=== PATIENT | female | born 1975 | race Caucasian/White ===

== ENCOUNTER 2017-06-07 18:45 | Emergency (ER) | payer OTHER ==
[~2017-06-07] VITALS: Ht 172.7 cm; Wt 112.5 kg
[~2017-06-07 18:45] MED LIST: ALBUTEROL0.09 MG/A1 INH; AMITRIPTYLINE H10 MG PO; BENTYL20 M1 PO; FLEXERIL10 MG PO; LIALDA1.2 G1 PO; LIALDA1.2 GM PO; MACROBID100 MG PO; MEDROL DOSEPAK1 PAC PO; NASONEX0.05 MG/Ac NAS; PERCOCET 325 MG1 TA2 PO; PERCOCET 5-3251 EACH PO; ROBITUSSIN W/CO10 ML PO; ROWASA4 GM/60 ML RC; TESSALON PERLE100 MG PO; VENLAFAXINE HYD75 M1 PO; VICODIN5-300 PO; ZOFRAN4 M1 PO
[2017-06-07 18:50] VITALS: BP 114/78
--- NOTE | 2017-06-07 20:18 | ED GI/GU/ABDOMINAL COMPLAINT ---
See Addendum History of Present Illness General Chief Complaint: Female Urogenital Problems Stated Complaint: PT HAS A BOIL ON HER INNER THIGH NEED TO BE DRAIN Source: patient Exam Limitations: no limitations Vital Signs & Intake/Output Vital Signs & Intake/Output Vital Signs Date Time Temp Pulse Resp B/P B/P Pulse O2 O2 Flow FiO2 Mean Ox Delivery Rate 06/07 2213 98.4 96 18 95 Room Air 06/07 2023 Room Air 06/07 1850 99.3 118 18 114/78 96 Room Air ED Intake and Output 06/08 0000 06/07 1200 Intake Total Output Total Balance Patient 248 lb Weight Weight Reported by Patient Measurement Method Triage Note: PT HAS ABCESS TO LEFT GROIN THAT HAS BEEN WORSE SINCE MONDAY. PT WENT TO PCP TODAY AND WAS TOLD TO COME TO ED. Triage Nurses Notes Reviewed? yes ? N Is pt currently ? No HPI: 41 yo F presents to the ED for evaluation of a groin abscess. The patient report it started with a boil a few days and has been increasing in size and pain since then. Last night she was unable to sleep due to the pain. She went to her PCP who advised her to go to the ER. She was prescribed Percocet by her PCP for the pain but it not provide her any relief. She reports she has had abscess in the past a few years ago. (JOO BARRAGAN,[facility]) Allergies Coded Allergies: doxycycline (Mild, abdominal pain, VOMITING 06/07/17) Reconcile Medications Cephalexin (Keflex) 500 MG CAPSULE 1 CAP PO 4 TIMES/DAY ABSCESS Clonazepam 1 MG TABLET 1 TAB PO PRN ANXIETY (Reported) Dextroamphetamine/Amphetamine (Adderall XR 20 MG Capsule) 20 MG CAP.ER.24H 1 CAP PO QAM ADD (Reported) Divalproex Sodium (Divalproex Sodium ER) 250 MG TAB.ER.24H 1 TAB PO QPM MENTAL HEALTH (Reported) Escitalopram Oxalate 20 MG TABLET 1 TAB PO QAM MENTAL HEALTH (Reported) Ibuprofen 800 MG TABLET 1 TAB PO TID pain Lamotrigine 25 MG TABLET 1 TAB PO QPM MENTAL HEALTH (Reported) Oxycodone HCl/Acetaminophen (Oxycodone-Acetaminophen 10-325) 10 MG-325 MG TABLET 1 TAB PO Q6H PRN PAIN (Reported) Oxycodone HCl/Acetaminophen (Percocet 5-325 MG Tablet) 5 MG-325 MG TABLET 1 TAB PO 4XDP PRN PAIN TEN...[id number] Sulfamethoxazole/Trimethoprim (Sulfamethoxazole-Tmp Ds Tablet) 800 MG-160 MG TABLET 1 TAB PO BID ANTIBIOTIC (Reported) Sulfamethoxazole/Trimethoprim (Bactrim Ds Tablet) 800 MG-160 MG TABLET 1 TAB PO BID ABSCESS (MERT BARRAGAN,RODOLFO Lane) Past History Travel History Traveled to [place] past 21 day No Medical History Any Pertinent Medical History? see below for history Neurological: NONE EENT: NONE Cardiovascular: hyperlipidemia Respiratory: bronchitis, obstructive sleep apnea Gastrointestinal: ulcerative colitis Hepatic: NONE Renal: NONE Musculoskeletal: falls Psychiatric: anxiety, bipolar disease Endocrine: NONE Blood Disorders: NONE Cancer(s): NONE NURSE EMERGENCY/Reproductive: NONE Surgical History Surgical History: cholecystectomy, hysterectomy, TONILLECTOMY ADENOID SX CYST REMOVAL FROM OVARIES Psychosocial History Who do you live with Spouse Services at Home NONE What is your primary language [place] Tobacco Use: Never used ETOH Use: denies use Illicit Drug Use: denies illicit drug use Family History Hx Contributory? No (SEVEN GE MD) Review of Systems Review of Systems Constitutional: Reports: no symptoms. (SEVEN GE MD) Physical Exam Physical Exam General Appearance: well developed/nourished, mild distress (SEVEN GE MD) Physical Exam Head: atraumatic Eyes: Bilateral: normal appearance. Ears, Nose, Throat, Mouth: hearing grossly normal, dental injury, moist mucous membrane Neck: normal inspection, supple Respiratory: normal breath sounds, chest non-tender, no respiratory distress, quiet respiration, lungs clear Cardiovascular: regular rate/rhythm Gastrointestinal: normal bowel sounds, soft, non-tender, no organomegaly Back: normal inspection, normal range of motion Extremities: normal range of motion Neurologic/Psych: no motor/sensory deficits, awake, alert, oriented x 3 Skin: intact, normal color, warm/dry Core Measures ACS in differential dx? No Severe Sepsis Present: No Septic Shock Present: No (RODOLFO PAINTING MD) Progress Differential Diagnosis: abscess vs cellulitis vs other. Plan of Care: absces drained... see below. pt given keflex/bactrim Initial ED EKG: none (RODOLFO PAINTING MD) Departure Departure Condition: Stable Referrals: ZAHEER BARRAGAN,TOY Mejia (PCP/Family) Departure Forms: Customer Survey General Discharge Information (JOO BARRAGAN,SEVEN) Departure Disposition: HOME OR SELF CARE Clinical Impression Primary Impression: Abscess Prescriptions: Current Visit Scripts Sulfamethoxazole/Trimethoprim (Bactrim Ds Tablet) 1 TAB PO BID #20 TAB Cephalexin (Keflex) 1 CAP PO 4 TIMES/DAY #40 CAP Ibuprofen 1 TAB PO TID #30 TAB Ref 1 Oxycodone HCl/Acetaminophen (Percocet 5-325 MG Tablet) 1 TAB PO 4XDP PRN PAIN #10 TAB TEN...[id number] Comments pt to follow up in 1-2 days for dressing change (MERT BARRAGAN,RODOLFO Lane) Procedures Incision and Drainage Site: left labia majora Blade Size: 11 I & D Procedure: Yes: betadine prep, sterile drapes applied, sterile dressing applied, wick placed. Progress: excellent result, small amount of pus and blood drained.... (MERT BARRAGAN,RODOLFO Lane)
[2017-06-07] MEDS ORDERED: ADDERALL XR 2020 MG PO (20:57)
[2017-06-07] MEDS ORDERED: OXYCODONE-ACET1 EAC1 PO (20:58)
[2017-06-07] MEDS ORDERED: SULFAMETHOXAZO1 EAC1 PO (20:58)
[2017-06-07] MEDS ORDERED: LAMOTRIGINE25 M3 PO (20:59)
[2017-06-07] MEDS ORDERED: DIVALPROEX SOD250 M3 PO (20:59)
[2017-06-07] MEDS ORDERED: CLONAZEPAM1 M2 PO (20:59)
[2017-06-07] MEDS ORDERED: ESCITALOPRAM OX20 MG PO (21:00)
[2017-06-07] MEDS ORDERED: BACTRIM DS TAB1 EACH PO (21:10)
[2017-06-07] MEDS ORDERED: KEFLEX500 M1 PO (21:10)
[2017-06-07] MEDS ORDERED: PERCOCET 5-3251 EACH PO (21:42)
[2017-06-07] MEDS ORDERED: IBUPROFEN800 M1 PO (21:42)
== END 2017-06-07 22:15 ==
LOC: ERH 18:45
DX: N76.4 Abscess of vulva (principal)

== ENCOUNTER 2017-06-09 19:55 | Inpatient (IN) | payer OTHER ==
[~2017-06-09] VITALS: Ht 172.7 cm; Wt 110.2 kg
[~2017-06-09 19:55] MED LIST changes: +ADDERALL XR 2020 MG PO; +BACTRIM DS TAB1 EACH PO; +CLONAZEPAM1 M2 PO; +DIVALPROEX SOD250 M3 PO; +ESCITALOPRAM OX20 MG PO; +IBUPROFEN800 M1 PO; +KEFLEX500 M1 PO; +LAMOTRIGINE25 M3 PO; +OXYCODONE-ACET1 EAC1 PO; +SULFAMETHOXAZO1 EAC1 PO
--- NOTE | 2017-06-09 20:10 | NUR ---
PT TO TRIAGE FOR WOUND CHECK TO LEFT THIGH, IND DONE YESTERDAY HERE IN ER. VSS.
--- NOTE | 2017-06-09 20:21 | NUR ---
PT IN RM C/O PAIN AND WOUND DRAINAGE TO LFT LABIA MAJORA RATING 8/10 ON PAIN SCALE. BREE SINCLAIR AT BEDSIDE
--- NOTE | 2017-06-09 20:26 | ED ANIMAL BITE/WOUND CHECK ---
History of Present Illness General Chief Complaint: Female Urogenital Problems Stated Complaint: FOLLOW UP A DRAINING OF A BOIL Source: patient, old records Exam Limitations: no limitations Vital Signs & Intake/Output Vital Signs & Intake/Output Vital Signs Date Time Temp Pulse Resp B/P B/P Pulse O2 O2 Flow FiO2 Mean Ox Delivery Rate 06/10 0305 98.9 72 13 124/76 92 Room Air 06/093 98.9 78 14 93/55 96 Room Air 06/092 98 Room Air 06/09 2009 98.3 89 18 127/84 97 Room Air ED Intake and Output 06/10 0000 06/09 1200 Intake Total 50 Output Total Balance 50 Intake, Oral 50 Patient 243 lb Weight Weight Reported by Patient Measurement Method Allergies Coded Allergies: doxycycline (Mild, abdominal pain, VOMITING 06/07/17) Reconcile Medications Cephalexin (Keflex) 500 MG CAPSULE 1 CAP PO 4 TIMES/DAY ABSCESS Clonazepam 1 MG TABLET 1 TAB PO PRN ANXIETY (Reported) Dextroamphetamine/Amphetamine (Adderall XR 20 MG Capsule) 20 MG CAP.ER.24H 1 CAP PO QAM ADD (Reported) Divalproex Sodium (Divalproex Sodium ER) 250 MG TAB.ER.24H 1 TAB PO QPM MENTAL HEALTH (Reported) Escitalopram Oxalate 20 MG TABLET 1 TAB PO QAM MENTAL HEALTH (Reported) Ibuprofen 800 MG TABLET 1 TAB PO TID pain Lamotrigine 25 MG TABLET 1 TAB PO QPM MENTAL HEALTH (Reported) Oxycodone HCl/Acetaminophen (Oxycodone-Acetaminophen 10-325) 10 MG-325 MG TABLET 1 TAB PO Q6H PRN PAIN (Reported) Oxycodone HCl/Acetaminophen (Percocet 5-325 MG Tablet) 5 MG-325 MG TABLET 1 TAB PO 4XDP PRN PAIN TEN...[id number] Sulfamethoxazole/Trimethoprim (Sulfamethoxazole-Tmp Ds Tablet) 800 MG-160 MG TABLET 1 TAB PO BID ANTIBIOTIC (Reported) Sulfamethoxazole/Trimethoprim (Bactrim Ds Tablet) 800 MG-160 MG TABLET 1 TAB PO BID ABSCESS Triage Note: PT TO TRIAGE FOR WOUND CHECK TO LEFT THIGH, IND DONE YESTERDAY HERE IN ER. VSS. Triage Nurses Notes Reviewed? yes Onset: Gradual Duration: getting worse Timing: recent history Severity: severe Severity Numbers: 10 Modifying Factors: Worsens With: movement. : No Patient currently breastfeeds: No HPI: Patient is a 41-year-old female who returns emergency room with a abscess wound recheck where patient 2 days ago was seen at [place] emergency room for concerns of left labial abscess in which an incision and drainage was performed. Patient was prescribed Keflex Bactrim and ibuprofen and Percocet for her symptoms. Patient was compliant with her medications Patient returns emergency room with worsening pain and spreading of the erythema and fevers noted. (ESTELA GA) Past History Travel History Traveled to [place] past 21 day No Medical History Any Pertinent Medical History? 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 No (ESTELA GA) Review of Systems Review of Systems Constitutional: Reports: see HPI. EENTM: Reports: no symptoms. Respiratory: Reports: no symptoms. Cardiovascular: Reports: no symptoms. GI: Reports: no symptoms. Genitourinary: Reports: see HPI. Musculoskeletal: Reports: no symptoms. Skin: Reports: see HPI. Neurological/Psychological: Reports: no symptoms. Hematologic/Endocrine: Reports: no symptoms. Immunologic/Allergic: Reports: no symptoms. All Other Systems: Reviewed and Negative (ESTELA GA) Physical Exam Physical Exam General Appearance: mild distress, obese Comments: HEENT: Normal EENT exam, Neck: Supple, no lymphadenopathy, normal range of motion without pain or tenderness Back: Nontender, no CVA tenderness. Cardiovascular: Regular rate and rhythms no murmurs rubs or gallops, normal JVP Respiratory: Chest nontender. No respiratory distress.breath sounds clear to auscultation bilaterally Abdomen: Soft, nontender nondistended, no appreciable organomegaly. Normal bowel sounds. No ascites Extremity: No edema, no calf tenderness to palpation, normal and equal pulses. Neuro: Alert oriented x3, motor sensory normal, Skin: No appreciable rash on exposed skin, skin is warm and dry. Psych: Mood and affect is normal, memory and judgment is normal. Diagram Body: 1) Noted left madan-labial induration erythema warmth and tenderness with mild purulent discharge with noted surrounding erythema and suprapubic erythema warmth and tenderness (DOTTIE GIRON,ESTELA) Progress Differential Diagnosis: abscess, cellulitis, joint infection, tenosysnovitis Plan of Care: Orders Procedure Date/time Status Nothing by Mouth 06/10 B Active Vital Signs 06/10 210 Active Teach/Educate 06/10 210 Active Pain Treatment and Response 06/10 210 Active Nutritional Intake, Monitor 06/10 210 Active Isolation 06/10 210 Active Intake & Output 06/10 210 Active Patient Care Conference 06/10 210 Active Activity/Ambulation 06/10 210 Active URINE DRUGS OF ABUSE 06/10 012 Active URINALYSIS 06/10 124 Active Patient Data 06/10 0107 Active Saline Lock 06/10 0036 Active Misc Message 06/10 003 Active ED Holding Orders 06/10 0036 Active Admit to inpatient 06/10 0036 Active Vital Signs 06/10 0036 Active Code Status 06/10 0036 Active Intake & Output 06/09 2352 Active LACTIC ACID 06/09 2339 Active BLOOD CULTURE 06/09 2209 Active HUMAN BETA HCG SCREEN 06/09 2135 Complete BLOOD CULTURE 06/09 2039 Active LACTIC ACID 06/09 2039 Complete COMPREHENSIVE METABOLIC PANEL 06/09 2039 Complete CBC WITHOUT DIFFERENTIAL 06/09 2039 Complete Laboratory Tests 06/09/172134: Anion Gap 10, Estimated GFR > 60, BUN/Creatinine Ratio 7.5, Glucose 91, Lactic Acid 1.4, Calcium 9.3, Total Bilirubin 0.6, AST 100 H, ALT 112 H, Alkaline Phosphatase 286 H, Total Protein 6.6, Albumin 4.2, Globulin 2.4, Albumin/ Globulin Ratio 1.8, Total Beta HCG NEGATIVE, CBC w Diff NO MAN DIFF REQ, RBC 4.51, MCV 82.8, MCH 27.3, RDW 13.5, MPV 8.7, Gran % 71.1, Lymphocytes % 17.0 L, Monocytes % 8.7, Eosinophils % 3.0, Basophils % 0.2, Absolute Granulocytes 7.1 H, Absolute Lymphocytes 1.7, Absolute Monocytes 0.9 H, Absolute Eosinophils 0.3 , Absolute Basophils 0, PUBS MCHC 32.9 L 06/09/172056: Total Beta HCG Cancelled Microbiology 06/09 2233 BLOOD: Blood Culture - RECD 06/09 2200 BLOOD: Blood Culture - CAN Cancelled: Quantity not sufficient for both blood culture bottles. 06/09 2135 BLOOD: Blood Culture - RECD incision and drainage was performed by Dr. Montesinos who was the initial provider 2 days ago who reevaluated patient today in the emergency room and was concerned of worsening cellulitis and concerns of expanding abscess. HE ADVISED Patient TO BE administered BACTRIM and IV ceftazidime CT scan currently is pending further evaluation of significance of abscess concerns. Discussed hand off with Dr. Montesinos (DOTTIE GIRON,ESTELA) Hand-Off Endorsed To: MERT BARRAGAN,RODOLFO Lane Endorsed Time: 2309 Pending: CT (ESTELA GA) Diagnostic Imaging: Viewed by Me: CT Scan. Discussed w/RAD: CT Scan. Radiology Impression: abd/pelvic ct... inflammation, no abscess. full report below. Comments: PATIENT: NAM DUVALL PRESENT AGE: 41 PATIENT ACCOUNT NO: [id number] : 74 LOCATION: [facility] ORDERING PHYSICIAN: ESTELA GIRON SERVICE DATE: 06/09/17 EXAM TYPE: CAT - CT PELVIS W IV CONTRAST EXAMINATION: CT PELVIS WITH IV CONTRAST CLINICAL INFORMATION: . Labral and left pelvic induration COMPARISON: None TECHNIQUE: Helical scanning was performed with submillimeter collimation through the pelvis with 95 mL of Optiray 320 intravenous contrast. Sagittal and coronal multiplanar 2-D reconstructions were obtained. DLP: 1177 mGy-cm FINDINGS: PELVIS: The urinary bladder appears within normal limits. The uterus is surgically absent. No suspicious adnexal mass. There is no free pelvic fluid. There is no localized bowel wall thickening demonstrated. There is a normal appendix. There is no iliac artery aneurysm. There are some numerous prominent inguinal lymph nodes. There are some nonenlarged external iliac lymph nodes on each side. Partially included midline ventral abdominal wall hernia. There is nonspecific stranding in the left lower quadrant abdominal wall. There is more localized moderately severe stranding and skin thickening in the mons pubis and perineal region on the left. There is no drainable fluid collection. No soft tissue gas. There is no involvement of the pelvic girdle muscles. OSSEOUS STRUCTURES: No focal bony lesion IMPRESSION: Skin thickening and superficial soft tissue stranding in the left perineum extending into the mons pubis. Pattern is most consistent with inflammation/edema. This could be related to cellulitis. No evidence of deep tissue abscess or impending gangrene DICTATED BY: JOSE MANUEL PINTO MD DATE/TIME DICTATED:06/09/172355 INFANT BABYSITTER:PRECIOUS DATE/TIME TRANSCRIBED:06/09/172355 CONFIDENTIAL, DO NOT COPY WITHOUT APPROPRIATE AUTHORIZATION. <Electronically signed in Other Vendor System> SIGNED BY: JOSE MANUEL PINTO MD 06/10/17 0008 (MERT BARRAGAN,RODOLFO Lane) Departure Departure Disposition: STILL A PATIENT Condition: Stable Clinical Impression Primary Impression: Pelvic cellulitis Secondary Impressions: Abscess of left genital labia, Abscess of pelvis Referrals: ZAHEER BARRAGAN,TOY Mejia (PCP/Family) Departure Forms: Customer Survey General Discharge Information (DOTTIE GIRON,ESTELA) Departure Comments 06/09/17, 23:53... discussed with dr. curtis... ct scan pending. surgical consult. Admission Note Spoke With: PANKAJ HARE MDBilly Documentation of Exam: Documentation of any treatments & extenuating circumstances including Concerns Regarding Discharge (functional status, medication knowledge or non-compliance, living conditions, etc.) that warrant an admission rather than observation: pt to be admitted for cellulitis, surgery consulting... pt is failure of outpatient antibiotics... no abscess seen on ct scan... would consider broader coverage if no response to iv abx in 12-24 hours. (MERT BARRAGAN,RODOLFO Lane)
--- NOTE | 2017-06-09 21:39 | NUR ---
BLOOD AND 1ST SET OF BLOOD CULTURES SENT TO LAB. SST,LAV,HERNANDEZ,BLUE. PT VERY DIFF STICK.
[2017-06-09 21:53] LABS: ABSOLUTE BASOPHIL COUNT 0 /CUMM (0.0-0.2); ABSOLUTE EOSINOPHIL COUNT 0.3 /CUMM (0.0-0.7); ABSOLUTE GRANULOCYTE CT 7.1 /CUMM (1.4-6.5); ABSOLUTE LYMPH COUNT 1.7 /CUMM (1.2-3.4); ABSOLUTE MONOCYTE COUNT 0.9 /CUMM (0.10-0.60); BASOPHIL % 0.2 % (0.0-2.0); GRANULOCYTE % 71.1 % (42.2-75.2); HEMATOCRIT 37.3 % (37-47); MEAN CORPUSCULAR HGB 27.3 PG (27.0-31.0); MEAN CORPUSCULAR HGB CONC 32.9 G/DL (33.0-37.0); MEAN CORPUSCULAR VOLUME 82.8 FL (81.0-99.0); MEAN PLATELET VOLUME 8.7 FL (7.4-10.4); PLATELET COUNT 250 /CUMM (130-400); RBC DISTRIBUTION WIDTH 13.5 % (11.5-14.5); RED BLOOD CELL CT 4.51 /CUMM (4.20-5.40)
--- NOTE | 2017-06-09 22:08 | NUR ---
PER PB FROM THE LAB 2ND SET OF CULTURES NEED TO BE REORDERED AND REDRAWN D/T INSUFFICIENT QUANTITY. BREE PALMER S AWARE AND REORDERED. PER PB FROM THE LAB SOMEONE FROM LAB WILL COME TO DRAW PT.
--- NOTE | 2017-06-09 22:35 | NUR ---
LAB AT BEDSIDE TO COLLECT 2ND SET OF BLOOD CULTURES.
--- NOTE | 2017-06-09 23:05 | NUR ---
RECEIVE PT LYING ON BED ,AWAKE AND VERBAL.WITH HEPLOCK AT RFA PT FOR ANTIBIOTIC MEDS.
--- NOTE | 2017-06-09 23:33 | NUR ---
PT TRANSPORTED TO CT SCAN PER STRETCHER.
--- NOTE | 2017-06-09 23:45 | NUR ---
PT BACK TO ROOM, MEDS GIVEN PO AND IVP, VS RECHECKED AND RECORDED. LEDFT ON BED RESTING , AWAITING CT SCAN RESULT.
--- NOTE | 2017-06-10 00:08 | CT SCAN REPORT ---
EXAMINATION: CT PELVIS WITH IV CONTRAST CLINICAL INFORMATION: . Labral and left pelvic induration COMPARISON: None TECHNIQUE: Helical scanning was performed with submillimeter collimation through the pelvis with 95 mL of Optiray 320 intravenous contrast. Sagittal and coronal multiplanar 2-D reconstructions were obtained. DLP: 1177 mGy-cm FINDINGS: PELVIS: The urinary bladder appears within normal limits. The uterus is surgically absent. No suspicious adnexal mass. There is no free pelvic fluid. There is no localized bowel wall thickening demonstrated. There is a normal appendix. There is no iliac artery aneurysm. There are some numerous prominent inguinal lymph nodes. There are some nonenlarged external iliac lymph nodes on each side. Partially included midline ventral abdominal wall hernia. There is nonspecific stranding in the left lower quadrant abdominal wall. There is more localized moderately severe stranding and skin thickening in the mons pubis and perineal region on the left. There is no drainable fluid collection. No soft tissue gas. There is no involvement of the pelvic girdle muscles. OSSEOUS STRUCTURES: No focal bony lesion IMPRESSION: Skin thickening and superficial soft tissue stranding in the left perineum extending into the mons pubis. Pattern is most consistent with inflammation/edema. This could be related to cellulitis. No evidence of deep tissue abscess or impending gangrene
--- NOTE | 2017-06-10 00:26 | NUR ---
SURGERY REP AT BEDSIDE, INCISION AND DRAINAGE STARTED.
--- NOTE | 2017-06-10 01:35 | NUR ---
PT AMBULATED TO BATHROOM, BACK TO BED. BENADRYL GIVEN IVP, REPORT GIVEN TO FLOOR RN. SEEN AND EXAMINED BY MEDICINE GROUP.
--- NOTE | 2017-06-10 01:55 | NUR ---
PT READY FOR TRANSPORT TO FLOOR.
[2017-06-10 03:05] VITALS: BP 124/76
--- NOTE | 2017-06-10 03:09 | NUR ---
PT ARRIVED FROM ER VIA STRETCHER, DROWSY/AROUSABLE. NS BOLUS INFUSING, VSS. ORIENTED PT TO ROOM AND CALL SYSTEM. 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 PT NOTED TO HAVE DRAINING WOUND TO LEFT LABIA MAJORA WITH PACKING, GAUZE OVER WOUND AND MESH PANTIES IN PLACE. WILL MONITOR
--- NOTE | 2017-06-10 03:49 | History & Physical ---
ALECIA BARRAGAN,WINNIEBilly 06/10/17 0349: General Information and HPI MD Statement: I have seen and personally examined NAM DUVALL and documented this H&P. The patient is a 41 year old F who presented with a patient stated chief complaint of [cellulitis]. Source of Information: patient, old records Exam Limitations: no limitations History of Present Illness: This is a 41-year-old female past medical history significant for bipolar, anxiety, UC on Asacol until last year, MRSA positive skin abscesses who comes in for chief complaint of worsening labial cellulitis. Patient was seen 2 days ago for a labial abscess and is status post I&D with Dr. Montesinos in ED. She was prescribed Keflex, Bactrim, ibuprofen and Percocet upon D/C at that time. [facility] returned today for a wound check. However, in the interim patient stated her pain worsened, the erythema grew and she experience fevers up to MAXIMUM TEMPERATURE 101.3 yesterday. She first noted symptoms after she shaved her bikini line about a week ago. At first she noticed a small pimple in her left labia which soon grew to a sizable mass. She first approached PCP regarding drainage but was referred to the ED. She had similar recurrence of "boils." About 3 years ago. Patient states that she had one in her buttockand one in her l. armpit. Both of which were drained a surgeon; + MRSA. Denies any headache, nausea, vomiting, short of breath, chest pain, diarrhea, constipation. She does endorse fever, malaise and pain in her pelvic area. She is still able to have bowel movements and pass gas. No difficulty on urination. Allergies/Medications Allergies: Coded Allergies: doxycycline (Mild, abdominal pain, VOMITING 06/07/17) Home Med list Cephalexin (Keflex) 500 MG CAPSULE 1 CAP PO 4 TIMES/DAY ABSCESS Clonazepam 1 MG TABLET 1 TAB PO PRN ANXIETY (Reported) Dextroamphetamine/Amphetamine (Adderall XR 20 MG Capsule) 20 MG CAP.ER.24H 1 CAP PO QAM ADD (Reported) Divalproex Sodium (Divalproex Sodium ER) 250 MG TAB.ER.24H 1 TAB PO QPM MENTAL HEALTH (Reported) Escitalopram Oxalate 20 MG TABLET 1 TAB PO QAM MENTAL HEALTH (Reported) Ibuprofen 800 MG TABLET 1 TAB PO TID pain Lamotrigine 25 MG TABLET 1 TAB PO QPM MENTAL HEALTH (Reported) Oxycodone HCl/Acetaminophen (Oxycodone-Acetaminophen 10-325) 10 MG-325 MG TABLET 1 TAB PO Q6H PRN PAIN (Reported) Oxycodone HCl/Acetaminophen (Percocet 5-325 MG Tablet) 5 MG-325 MG TABLET 1 TAB PO 4XDP PRN PAIN TEN...[id number] Sulfamethoxazole/Trimethoprim (Sulfamethoxazole-Tmp Ds Tablet) 800 MG-160 MG TABLET 1 TAB PO BID ANTIBIOTIC (Reported) Sulfamethoxazole/Trimethoprim (Bactrim Ds Tablet) 800 MG-160 MG TABLET 1 TAB PO BID ABSCESS Compliance With Home Meds: UNKNOWN Past History Travel History Traveled to [place] past 21 day No Medical History Blood Transfusion Hx: No Neurological: NONE EENT: NONE Cardiovascular: hyperlipidemia Respiratory: bronchitis, obstructive sleep apnea Gastrointestinal: ulcerative colitis Hepatic: NONE Renal: NONE Musculoskeletal: falls Psychiatric: anxiety, bipolar disease Endocrine: NONE Blood Disorders: NONE Cancer(s): NONE 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 Home Services at Home: NONE Smoking Status: Former Smoker Functional Ability ADLs Independent: dressing, eating, toileting, bathing. Ambulation: independent IADLs Independent: shopping, housework, finances, food prep, telephone, transportation , medication admin. Review of Systems Review of Systems Constitutional: Reports: see HPI. Exam & Diagnostic Data Last 24 Hrs of Vital Signs/I&O Vital Signs Date Time Temp Pulse Resp B/P B/P Pulse O2 O2 Flow FiO2 Mean Ox Delivery Rate 06/10 305 98.9 72 13 124/76 92 Room Air 06/09 2353 98.9 78 14 93/55 96 Room Air 06/09 2032 98 Room Air 06/09 2009 98.3 89 18 127/84 97 Room Air Intake & Output 06/10 0800 06/10 0000 06/09 1600 Intake Total 50 Output Total Balance 50 Intake, Oral 50 Patient 110.223 kg 110.223 kg Weight Weight Reported by Patient Reported by Patient Measurement Method Physical Exam General Appearance Alert, Oriented X3, Cooperative, No Acute Distress Skin patient's left labia has 1 x 1 cm open area. No evidence of purulence. No drainage. Has packing in place. Labia and mons pubis erythematous. Left labia firm to palpation. no lymph nodes were palpablehowever, patient was very tender on examination Skin Temp/Moisture Exam: Warm/Dry HEENT Atraumatic, PERRLA, EOMI, Mucous Membr. moist/pink Neck Supple, No LAD Cardiovascular Regular Rate, Normal S1, Normal S2, No Murmurs Lungs Normal Air Movement Abdomen Soft, No Tenderness Extremities No Edema Last 24 Hrs of Labs/Kyle: Laboratory Tests 06/09/172134: Anion Gap 10, Estimated GFR > 60, BUN/Creatinine Ratio 7.5, Glucose 91, Lactic Acid 1.4, Calcium 9.3, Total Bilirubin 0.6, AST 100 H, ALT 112 H, Alkaline Phosphatase 286 H, Total Protein 6.6, Albumin 4.2, Globulin 2.4, Albumin/ Globulin Ratio 1.8, Total Beta HCG NEGATIVE, CBC w Diff NO MAN DIFF REQ, RBC 4.51, MCV 82.8, MCH 27.3, RDW 13.5, MPV 8.7, Gran % 71.1, Lymphocytes % 17.0 L, Monocytes % 8.7, Eosinophils % 3.0, Basophils % 0.2, Absolute Granulocytes 7.1 H, Absolute Lymphocytes 1.7, Absolute Monocytes 0.9 H, Absolute Eosinophils 0.3 , Absolute Basophils 0, PUBS MCHC 32.9 L 06/09/172056: Total Beta HCG Cancelled Microbiology 06/09 223 BLOOD: Blood Culture - RECD 06/09 2200 BLOOD: Blood Culture - CAN Cancelled: Quantity not sufficient for both blood culture bottles. 06/09 2135 BLOOD: Blood Culture - RECD Assessment/Plan Assessment: This is a 41-year-old female with past medical history significant for bipolar, anxiety, UC now no longer on Asacol, who comes in for chief complaint of worsening labial cellulitis. During admission patient was afebrile, not tachycardic, and without white count. Patient will be admitted to the general medicine floor for further workup and management of pelvic cellulitis. ED workup shows: Vitals: 98.9, 78, 14, 93/55, 96CBC: White count 10.3, hemoglobin 12.3, hematocrit 37.3, platelet 270. BEP: BUN 6, creatinine 0.8. No lactic acidosis, negative beta-hCG. LFT: AST 100, ALT 112, alkaline phosphatase 286. CT pelvis: Shows prominent lymph nodes and stranding in left lower quadrant abdominal wall and mons pubis and peroneal region. No evidence of soft tissue gas or bony abnormalities. PLAN Pelvic cellulitis: Patient has history of MRSA from previous abscesses. This is her second time with a labial abscess in the last [address] does not show evidence of gas in tissue. No crepitus on physical exam. Surgical consult placed in ED for evaluation. Additionally, in ED patient got cefazolin, and Bactrim DS. Unfortunately, no cultures were sent from the drainage done in ER 2 days ago. At this time we will cover patient for MRSA and given close location to perirectal area will also cover other gram-positive, gram-negative bacilli and anaerobes. She did have one episode of hypotension with blood pressure 93/ 55, however this was after she received morphine. She has no white count, no evidence of fever in hospital, negative lactic acid, is not tachycardic or tachypneic. At this time it does not appear that she has sepsis secondary to cellulitis * Vancomycin 2 g every 12 * Unasyn 3 g every 6 * Surgery on board * Consider ID consult in a.m. * Urinalysis * U tox * NS at 100cc Transaminitis: Patient has AST 100, ALT 112 alkaline phosphatase 286. She has history of cholecystectomy. Denies any right upper quadrant pain. At this time etiology is currently unclear. She does endorse history of alcohol but she states that it is recreational and that she engages infrequently. However, if suspicion is high place patient on CIWA protocol. Consider right upper quadrant ultrasound if LFTs continue to trend upward. * Monitor LFT * Patient has negative hepatitis panel in 2016 Bipolar/anxiety: Patient was unable to confirm her medications with me. She did not have a list. * Verify her medication doses and restart in a.m. Her medications likely include divalproex, Lamictal and Adderall. Full code regular diet chemical DVT prophylaxis As Ranked By This Provider Problem List: 1. Ulcerative colitis 2. Abscess of left genital labia 3. Pelvic cellulitis Core Measures/Miscellaneous Acute Coronary Syndrome ACS Diagnosis: No Cerebrovascular Accident CVA/TIA Diagnosis: No Congestive Heart Failure CHF Diagnosis: No VTE (View Protocol) VTE Risk Factors: Acute medical illness, Age > 40 No Mech VTE prophylaxis d/t: No contraindications No VTE Pharm Prophylaxis d/t: No contraindications VTE Diagnosis: No VTE Type: NONE VTE Confirmed by (Test): NONE Sepsis (View Protocol) Severe Sepsis Present: No Septic Shock Septic Shock Present: No Miscellaneous Documentation Attending Case Discussed With: PANKAJ HARE MDBilly Primary Care Physician: TOY SCHWAB MD Patient sees these Specialists unknown Level of Patient Care: General Medicine NILAY HARE MD 06/10/17 0527: Attending MD Review Statement Attending Statement Attending MD Statement: examined this patient, discuss w/resident/PA/GARDEN CONSULTANT, agreed w/resident/PA/GARDEN CONSULTANT Attending Assessment/Plan: 41 yo morbidly obese F with h/oanxiety, depression, bipolar d/o, ADD, UC in remission, previous MRSA skin abscess (axillary and groin), was seen in [place] ER on June 07 for left labia majora abscess for which I and D was done, she was discharged on Bactrim and Keflex, she returns today for worsening swelling, erythema and discharge. Reports her symptoms started 5 days ago, after she shaved her perineal area, initially a small boil which transformed into diffuse swelling, induration and erythema. Tmax 101. VSS, except for a slight drop in BP to 93/55. Exam: left labia majora diffuse swelling, indurated, no fluctuance, incision site with packing+, erythema+. Labs : no leukocytosis, lactic acid 1.4, AST 100, ALT 112, Alk phos 286. Pelvis CT: skin thickening and superficial soft tissue stranding in left perineum extending into mons pubis cellulitis, no abscess or gangrene. 1. Left labial abscess s/p I and D with cellulitis, failed outpatient antibiotic therapy. GM admit, panculture, patient received IV cefazolin and PO bactrim in ER. Given previous MRSA infections, will cover with IV Vanco and Unasyn (gram +/ - and anaerobes). Surgical PA evaluated patient in ER, no further I and D required, packing was replaced, no further purulent drainage. Surgery to follow. Pain management with morphine. Gentle IV hydration. Taper antibiotic coverage based on cultures. Please note, body fluid culture was not sent on June 07 when initial I and D was done in the ER. Check Utox. 2. Transaminitis in the setting of infection. She is s/p cholecystectomy, hep panel neg (2016), alcohol use socially. Will recheck LFTs after gentle hydration. DVT ppx Lovenox. Full code.
--- NOTE | 2017-06-10 05:13 | Admission Certification ---
Admission Certification Certification Statement - As attending physician, I certify that at the time of - admission, based on clinical presentation, severity of - symptoms, need for further diagnostic testing and - therapeutic interventions, and risk of adverse outcomes - without in-hospital treatment, in my clinical assessment, - this patient requires an acute hospital stay for a minimum - of two nights or longer. I have also considered psychsocial - factors such as support system, advanced age, financial - issues, cognitive issues, and failed out-patient treatments, - past re-admission history, safety of patient, and lack of - compliance as applicable. Specific rationale supporting this admission is: Labial cellulitis, failed outpatient antibiotic therapy.
--- NOTE | 2017-06-10 05:29 | Cons- General Surgery ---
General Information and HPI Consulting Request Date of Consult: 06/10/17 Requested By: PAYAM BARRAGAN,VERNELL Reason for Consult: mons pubis cellulitis/abscess History of Present Illness: 41yoF presents to ED co worsening redness/discomfort of mons pubis, sp I&D by ED MD 06/07/17. SHe does have a history of MRSA abcesses requiring I&D in OR ( [place]) in 2012 ( R axilla and buttock). She was seen in ED 06/07 and was dc' ed home from ED on bactrim after I&D. She took Abx as directed, but worsened so came back to ED tonight for further eval. Tmax at home was 101. Afebrile now. Denies other symptoms- no co/sob/n/v/changes in bowel habits/changes in urinary habits. Allergies/Medications Allergies: Coded Allergies: doxycycline (Mild, abdominal pain, VOMITING 06/07/17) Home Med List: Cephalexin (Keflex) 500 MG CAPSULE 1 CAP PO 4 TIMES/DAY ABSCESS Clonazepam 1 MG TABLET 1 TAB PO PRN ANXIETY (Reported) Dextroamphetamine/Amphetamine (Adderall XR 20 MG Capsule) 20 MG CAP.ER.24H 1 CAP PO QAM ADD (Reported) Divalproex Sodium (Divalproex Sodium ER) 250 MG TAB.ER.24H 1 TAB PO QPM MENTAL HEALTH (Reported) Escitalopram Oxalate 20 MG TABLET 1 TAB PO QAM MENTAL HEALTH (Reported) Ibuprofen 800 MG TABLET 1 TAB PO TID pain Lamotrigine 25 MG TABLET 1 TAB PO QPM MENTAL HEALTH (Reported) Oxycodone HCl/Acetaminophen (Oxycodone-Acetaminophen 10-325) 10 MG-325 MG TABLET 1 TAB PO Q6H PRN PAIN (Reported) Oxycodone HCl/Acetaminophen (Percocet 5-325 MG Tablet) 5 MG-325 MG TABLET 1 TAB PO 4XDP PRN PAIN TEN...[id number] Sulfamethoxazole/Trimethoprim (Sulfamethoxazole-Tmp Ds Tablet) 800 MG-160 MG TABLET 1 TAB PO BID ANTIBIOTIC (Reported) Sulfamethoxazole/Trimethoprim (Bactrim Ds Tablet) 800 MG-160 MG TABLET 1 TAB PO BID ABSCESS Current Medications: Current Medications Sig/Chata Start time Last Medication Dose Route Stop Time Status Admin Ampicillin Sodium/ 1,500 MG Q6 06/10 0600 DC Sulbactam Sodium IV Sodium Chloride 100 ML Ampicillin Sodium/ 3,000 MG Q6 06/10 0600 AC Sulbactam Sodium IV Sodium Chloride 100 ML Cefazolin Sodium 0 .STK-MED ONE 06/09 2327 DC .ROUTE Cefazolin Sodium 1,000 MG ONCE ONE 06/09 2100 DC 06/09 IV 06/09 2101 2345 Clonazepam 1 MG QPM PRN 06/10 0445 AC PO 06/17 0444 Diphenhydramine HCl 0 .STK-MED ONE 06/10 014 DC .ROUTE Diphenhydramine HCl 25 MG ONCE ONE 06/10 0130 DC 06/10 IV 06/10 0131 0147 Enoxaparin Sodium 40 MG DAILY 06/10 1000 AC SC Escitalopram Oxalate 20 MG DAILY 06/10 1000 AC PO Ibuprofen 600 MG Q6P PRN 06/10 0445 AC PO Ketorolac 0 .STK-MED ONE 06/09 2218 DC Tromethamine .ROUTE Ketorolac 30 MG ONCE ONE 06/09 2215 DC 06/09 Tromethamine IV 06/09 2216 2217 Morphine Sulfate 2 MG Q4P PRN 06/10 0445 AC IV Morphine Sulfate 0 .STK-MED ONE 06/10 0141 DC .ROUTE Morphine Sulfate 4 MG ONCE ONE 06/10 013 DC 06/10 IV 06/10 013 014 Morphine Sulfate 0 .STK-MED ONE 06/09 2053 DC .ROUTE Morphine Sulfate 6 MG ONCE ONE 06/09 2045 DC 06/09 IV 06/09 Ondansetron HCl 4 MG Q6P PRN 06/10 0445 AC IV Oxycodone HCl 5 MG Q6H PRN 06/10 0445 AC PO Sodium Chloride 1,000 ML Q13H 06/10 0445 AC IV Sodium Chloride 1,000 ML BOLUS ONE 06/10 0130 DC 06/10 IV 06/10 0229 0209 Trimethoprim/ 0 .STK-MED ONE 06/09 2330 DC Sulfamethoxazole PO Trimethoprim/ 1 TAB ONCE ONE 06/09 2100 DC 06/09 Sulfamethoxazole PO 06/09 2101 2345 Vancomycin HCl 2,000 MG DAILY 06/10 1000 AC Sodium Chloride 500 ML IV Past History Medical History Blood Transfusion Hx: No Neurological: NONE EENT: NONE Cardiovascular: hyperlipidemia Respiratory: bronchitis, obstructive sleep apnea Gastrointestinal: ulcerative colitis Hepatic: NONE Renal: NONE Musculoskeletal: falls Psychiatric: anxiety, bipolar disease Endocrine: NONE Blood Disorders: NONE Cancer(s): 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 Home Services at Home: NONE Smoking Status: Former Smoker Functional Ability ADLs Independent: dressing, eating, toileting, bathing. Ambulation: independent IADLs Independent: shopping, housework, finances, food prep, telephone, transportation , medication admin. Review of Systems Review of Systems: see HPI Exam & Diagnostic Data Vital Signs and I&O Vital Signs Date Time Temp Pulse Resp B/P B/P Pulse O2 O2 Flow FiO2 Mean Ox Delivery Rate 06/10 0305 98.9 72 13 124/76 92 Room Air 06/093 98.9 78 14 93/55 96 Room Air 06/09 2032 98 Room Air 06/09 2009 98.3 89 18 127/84 97 Room Air Intake & Output 06/10 0806/10 0000 06/09 1600 06/09 0800 06/09 0000 06/08 1600 Intake Total 50 Output Total Balance 50 Intake, Oral 50 Patient 243 lb 243 lb Weight Weight Reported by Patient Reported by Patient Measurement Method Physical Exam: GEN: NAD CARD: s1s2 RRR PULM: CTAB ABD: soft nt skin: left mons pubis hot to touch, erythematous, firm with induration, no flucuance, 2 small open areas lateral to left labia. packing removed and wound cleansed of fibrin, irrigated w NS. No new drainage expressed, no collection noted. Last 24 Hours of Labs: Laboratory Tests 06/09 Chemistry Sodium (137 - 145 mmol/L) 140 Potassium (3.5 - 5.1 mmol/L) 4.3 Chloride (98 - 107 mmol/L) 99 Carbon Dioxide (22 - 30 mmol/L) 30 Anion Gap (5 - 16) 10 BUN (7 - 17 mg/dL) 6 L Creatinine (0.5 - 1.0 mg/dL) 0.8 Estimated GFR (>60 ml/min) > 60 BUN/Creatinine Ratio (7 - 25 %) 7.5 Glucose (65 - 99 mg/dL) 91 Lactic Acid (0.7 - 2.1 mmol/L) 1.4 Calcium (8.4 - 10.2 mg/dL) 9.3 Total Bilirubin (0.2 - 1.3 mg/dL) 0.6 AST (14 - 36 U/L) 100 H ALT (9 - 52 U/L) 112 H Alkaline Phosphatase (<127 U/L) 286 H Total Protein (6.3 - 8.2 g/dL) 6.6 Albumin (3.5 - 5.0 g/dL) 4.2 Globulin (1.9 - 4.2 gm/dL) 2.4 Albumin/Globulin Ratio (1.1 - 2.2 %) 1.8 Total Beta HCG (NEGATIVE) NEGATIVE Cancelled Hematology CBC w Diff NO MAN DIFF REQ WBC (4.8 - 10.8 /CUMM) 10.0 RBC (4.20 - 5.40 /CUMM) 4.51 Hgb (12.0 - 16.0 G/DL) 12.3 Hct (37 - 47 %) 37.3 MCV (81.0 - 99.0 FL) 82.8 MCH (27.0 - 31.0 PG) 27.3 RDW (11.5 - 14.5 %) 13.5 Plt Count (130 - 400 /CUMM) 250 MPV (7.4 - 10.4 FL) 8.7 Gran % (42.2 - 75.2 %) 71.1 Lymphocytes % (20.5 - 51.1 %) 17.0 L Monocytes % (1.7 - 9.3 %) 8.7 Eosinophils % (0 - 5 %) 3.0 Basophils % (0.0 - 2.0 %) 0.2 Absolute Granulocytes (1.4 - 6.5 /CUMM) 7.1 H Absolute Lymphocytes (1.2 - 3.4 /CUMM) 1.7 Absolute Monocytes (0.10 - 0.60 /CUMM) 0.9 H Absolute Eosinophils (0.0 - 0.7 /CUMM) 0.3 Absolute Basophils (0.0 - 0.2 /CUMM) 0 PUBS MCHC (33.0 - 37.0 G/DL) 32.9 L Imaging Results: CT Pelvis: cellulitis, no drainable collection. see rads report for details Assessment/Plan Assessment/Plan A: Mons pubis cellulitis, sp I&D 2 days ago, failed outpt treatment, hx MRSA, WBC 10K. P: hot soaks IV abx to cover MRSA, cx taken at time of I&D? wound checks, packing change QD will continue to follow dw DR. Hood Consult Acknowledgment - Thank you for your consult request.
[2017-06-10 06:54] VITALS: BP 118/58
[2017-06-10 08:53] LABS: ABSOLUTE BASOPHIL COUNT 0 /CUMM (0.0-0.2); ABSOLUTE EOSINOPHIL COUNT 0.4 /CUMM (0.0-0.7); ABSOLUTE GRANULOCYTE CT 4.3 /CUMM (1.4-6.5); ABSOLUTE LYMPH COUNT 2.4 /CUMM (1.2-3.4); ABSOLUTE MONOCYTE COUNT 0.6 /CUMM (0.10-0.60); BASOPHIL % 0.6 % (0.0-2.0); EOSINOPHIL % 5.4 % (0-5); GRANULOCYTE % 55.5 % (42.2-75.2); HEMATOCRIT 36.1 % (37-47); MEAN CORPUSCULAR HGB 27.7 PG (27.0-31.0); MEAN CORPUSCULAR HGB CONC 33.3 G/DL (33.0-37.0); MEAN CORPUSCULAR VOLUME 83.1 FL (81.0-99.0); MEAN PLATELET VOLUME 8.9 FL (7.4-10.4); PLATELET COUNT 253 /CUMM (130-400); RBC DISTRIBUTION WIDTH 14.1 % (11.5-14.5); RED BLOOD CELL CT 4.34 /CUMM (4.20-5.40); WHITE BLOOD CELL COUNT 7.7 /CUMM (4.8-10.8)
--- NOTE | 2017-06-10 16:30 | Cons- General Surgery ---
General Information and HPI Consulting Request Date of Consult: 06/10/17 Requested By: PAYAM BARRAGAN,VERNELL History of Present Illness: CC: abdominal pain HPI: 41-year-old ex-smoker nondiabetic with a history of UC and skin infections on review my colleague drained both a right axillary and upper buttock abscess in 2012 both MRSA, she says she was okay for a few years and then on the she came to the ER with a 3 day history of worsening left labial pain redness and swelling this was lanced but it didn't really improve, the ER attending told me that not much pus came out, the swelling spread and she returned to the ER last night and a workup was done including labs and a CT scan. There was no fever no nausea she was hemodynamically stable, as far as what triggered this in retrospect she had shaved the area in preparation for going to the beach. Overnight since being admitted on IV antibiotics it still hurts, managed by analgesics, but she says the redness has not spread. Family history father colon and prostate cancer maternal grandmother ovarian cancer and breast cancer paternal grandmother breast cancer maternal grandfather lung cancer Otherwise no changes bowel habits, weight or appetite. I've reviewed the [facility]. No history of GERD, PUD, bleeding problems, heart disease or issues with anesthesia. Allergies/Medications Allergies: Coded Allergies: doxycycline (Mild, abdominal pain, VOMITING 06/07/17) Home Med List: Cephalexin (Keflex) 500 MG CAPSULE 1 CAP PO 4 TIMES/DAY ABSCESS Clonazepam 1 MG TABLET 1 TAB PO PRN ANXIETY (Reported) Dextroamphetamine/Amphetamine (Adderall XR 20 MG Capsule) 20 MG CAP.ER.24H 1 CAP PO QAM ADD (Reported) Divalproex Sodium (Divalproex Sodium ER) 250 MG TAB.ER.24H 1 TAB PO QPM MENTAL HEALTH (Reported) Escitalopram Oxalate 20 MG TABLET 1 TAB PO QAM MENTAL HEALTH (Reported) Ibuprofen 800 MG TABLET 1 TAB PO TID pain Lamotrigine 25 MG TABLET 1 TAB PO QPM MENTAL HEALTH (Reported) Oxycodone HCl/Acetaminophen (Oxycodone-Acetaminophen 10-325) 10 MG-325 MG TABLET 1 TAB PO Q6H PRN PAIN (Reported) Oxycodone HCl/Acetaminophen (Percocet 5-325 MG Tablet) 5 MG-325 MG TABLET 1 TAB PO 4XDP PRN PAIN TEN...[id number] Sulfamethoxazole/Trimethoprim (Sulfamethoxazole-Tmp Ds Tablet) 800 MG-160 MG TABLET 1 TAB PO BID ANTIBIOTIC (Reported) Sulfamethoxazole/Trimethoprim (Bactrim Ds Tablet) 800 MG-160 MG TABLET 1 TAB PO BID ABSCESS Current Medications: I reviewed Current Medications Sig/Chata Start time Last Medication Dose Route Stop Time Status Admin Ampicillin Sodium/ 1,500 MG Q6 06/10 0600 DC Sulbactam Sodium IV Sodium Chloride 100 ML Ampicillin Sodium/ 3,000 MG Q6 06/10 0600 AC 06/10 Sulbactam Sodium IV 1127 Sodium Chloride 100 ML Cefazolin Sodium 0 .STK-MED ONE 06/09 2327 DC .ROUTE Cefazolin Sodium 1,000 MG ONCE ONE 06/09 2100 DC 06/09 IV 06/09 2101 2345 Clonazepam 1 MG QPM PRN 06/10 0445 AC PO 06/17 044 Diphenhydramine HCl 0 .STK-MED ONE 06/10 014 DC .ROUTE Diphenhydramine HCl 25 MG ONCE ONE 06/10 0130 DC 06/10 IV 06/10 013 0147 Docusate Sodium 100 MG BID 06/10 1000 AC 06/10 PO 1126 Enoxaparin Sodium 40 MG DAILY 06/10 1000 AC 06/10 SC 0930 Escitalopram Oxalate 20 MG DAILY 06/10 1000 AC 06/10 PO 0929 Ibuprofen 600 MG Q6P PRN 06/10 0445 AC PO Ketorolac 0 .STK-MED ONE 06/09 2218 DC Tromethamine .ROUTE Ketorolac 30 MG ONCE ONE 06/09 2215 DC 06/09 Tromethamine IV 06/09 221 221 Morphine Sulfate 2 MG Q4P PRN 06/10 0445 AC 06/10 IV 1138 Morphine Sulfate 0 .STK-MED ONE 06/10 014 DC .ROUTE Morphine Sulfate 4 MG ONCE ONE 06/10 130 DC 06/10 IV 06/10 131 014 Morphine Sulfate 0 .STK-MED ONE 06/09 2053 DC .ROUTE Morphine Sulfate 6 MG ONCE ONE 06/09 2045 DC 06/09 IV 06/09 Ondansetron HCl 4 MG Q6P PRN 06/10 0445 AC IV Oxycodone HCl 5 MG Q6H PRN 06/10 0445 AC 06/10 PO 1341 Senna 187 MG DAILY 06/10 1000 AC 06/10 PO 1126 Sodium Chloride 1,000 ML Q13H 06/10 0445 AC 06/10 IV 0644 Sodium Chloride 1,000 ML BOLUS ONE 06/10 0130 DC 06/10 IV 06/10 0229 0209 Trimethoprim/ 0 .STK-MED ONE 06/09 2330 DC Sulfamethoxazole PO Trimethoprim/ 1 TAB ONCE ONE 06/09 2100 DC 06/09 Sulfamethoxazole PO 06/09 2101 2345 Vancomycin HCl 2,000 MG DAILY 06/10 1000 AC 06/10 Sodium Chloride 500 ML IV 1211 Past History Medical History Blood Transfusion Hx: No Neurological: NONE EENT: NONE Cardiovascular: hyperlipidemia Respiratory: bronchitis, obstructive sleep apnea Gastrointestinal: ulcerative colitis Hepatic: NONE Renal: NONE Musculoskeletal: falls Psychiatric: anxiety, bipolar disease Endocrine: NONE Blood Disorders: NONE Cancer(s): NONE 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 Home Services at Home: NONE Smoking Status: Former Smoker Functional Ability ADLs Independent: dressing, eating, toileting, bathing. Ambulation: independent IADLs Independent: shopping, housework, finances, food prep, telephone, transportation , medication admin. Review of Systems Review of Systems: Constitutional: No fever, sweats or weight loss ENMT: No sore throat Cardiovascular: No chest pain, palpitations or leg swelling Respiratory: No shortness of breath, cough, or sputum or dyspnea on exertion GI: No GERD or bleeding per rectum : No dysuria or hematuria Musculoskeletal: No new muscle weakness, bone or joint pain Skin / Breast: No jaundice, rashes or itching Psychiatric: No history of drug or alcohol abuse, but is on medications for anxiety Hematologic / lymphatic system: No problems with excessive bleeding, bruising, or blood clots Exam & Diagnostic Data Vital Signs and I&O Vital Signs I reviewed Date Time Temp Pulse Resp B/P B/P Pulse O2 O2 Flow FiO2 Mean Ox Delivery Rate 06/10 0654 97.8 73 16 118/58 94 06/10 0305 98.9 72 13 124/76 92 Room Air 07/14 2353 98.9 78 14 93/55 96 Room Air 06/09 2032 98 Room Air 06/09 2009 98.3 89 18 127/84 97 Room Air I reviewed Intake & Output 06/10 0000 06/09 0000 Intake Total 500 1000 50 Output Total 250 Balance 250 1000 50 Intake, IV 1000 Intake, Oral 500 50 Output, Urine 250 Patient 243 lb 243 lb Weight Weight Reported by Patient Reported by Patient Measurement Method Physical Exam: Constitutional: pleasant, no acute distress, conversant Eyes: sclera anicteric ENMT: ears and nose atraumatic, moist mucous membranes, good dentition, no lip lesions Neck: Supple, trachea is midline, no cervical or supraclavicular adenopathy and no palpable thyromegaly Cardiovascular: S1, S2, no murmurs, no peripheral edema Respiratory: clear to auscultation with normal respiratory effort and no intercostal retractions GI: abdomen soft, nontender, nondistended, no palpable hepatosplenomegaly Extremities / lymphatics: symmetrically warm, free range of motion no peripheral edema, no cervical, supraclavicular, axillary, or inguinal adenopathy Musculoskeletal: Did not evaluate gait and station, no digital cyanosis, good muscle strength and tone no atrophy, motor grossly 5 out of 5 throughout Skin: no jaundice, no rashes warm, nondiaphoretic, mons and left labial area are edematous erythematous slightly indurated this to I&D sites but overall no crepitus no necrosis no fluctuance Psychiatric: mood and affect are appropriate and alert and oriented to person place and time Last 24 Hours of Labs: I reviewed Laboratory Tests 06/10 06/09 0645 6959 Chemistry Sodium (137 - 145 mmol/L) 141 Potassium (3.5 - 5.1 mmol/L) 4.4 Chloride (98 - 107 mmol/L) 103 Carbon Dioxide (22 - 30 mmol/L) 28 Anion Gap (5 - 16) 10 BUN (7 - 17 mg/dL) 5 L Creatinine (0.5 - 1.0 mg/dL) 0.9 Estimated GFR (>60 ml/min) > 60 BUN/Creatinine Ratio (7 - 25 %) 5.6 L Lactic Acid Cancelled Total Bilirubin (0.2 - 1.3 mg/dL) 0.5 Direct Bilirubin (< 0.4 mg/dL) 0.4 AST (14 - 36 U/L) 74 H ALT (9 - 52 U/L) 96 H Alkaline Phosphatase (<127 U/L) 257 H Total Protein (6.3 - 8.2 g/dL) 6.0 L Albumin (3.5 - 5.0 g/dL) 3.8 Hematology CBC w Diff NO MAN DIFF REQ WBC (4.8 - 10.8 /CUMM) 7.7 RBC (4.20 - 5.40 /CUMM) 4.34 Hgb (12.0 - 16.0 G/DL) 12.0 Hct (37 - 47 %) 36.1 L MCV (81.0 - 99.0 FL) 83.1 MCH (27.0 - 31.0 PG) 27.7 RDW (11.5 - 14.5 %) 14.1 Plt Count (130 - 400 /CUMM) 253 MPV (7.4 - 10.4 FL) 8.9 Gran % (42.2 - 75.2 %) 55.5 Lymphocytes % (20.5 - 51.1 %) 30.7 Monocytes % (1.7 - 9.3 %) 7.8 Eosinophils % (0 - 5 %) 5.4 H Basophils % (0.0 - 2.0 %) 0.6 Absolute Granulocytes (1.4 - 6.5 /CUMM) 4.3 Absolute Lymphocytes (1.2 - 3.4 /CUMM) 2.4 Absolute Monocytes (0.10 - 0.60 /CUMM) 0.6 Absolute Eosinophils (0.0 - 0.7 /CUMM) 0.4 Absolute Basophils (0.0 - 0.2 /CUMM) 0 PUBS MCHC (33.0 - 37.0 G/DL) 33.3 06/09 06/09 2135 2057 Chemistry Sodium (137 - 145 mmol/L) 140 Potassium (3.5 - 5.1 mmol/L) 4.3 Chloride (98 - 107 mmol/L) 99 Carbon Dioxide (22 - 30 mmol/L) 30 Anion Gap (5 - 16) 10 BUN (7 - 17 mg/dL) 6 L Creatinine (0.5 - 1.0 mg/dL) 0.8 Estimated GFR (>60 ml/min) > 60 BUN/Creatinine Ratio (7 - 25 %) 7.5 Glucose (65 - 99 mg/dL) 91 Lactic Acid (0.7 - 2.1 mmol/L) 1.4 Calcium (8.4 - 10.2 mg/dL) 9.3 Total Bilirubin (0.2 - 1.3 mg/dL) 0.6 AST (14 - 36 U/L) 100 H ALT (9 - 52 U/L) 112 H Alkaline Phosphatase (<127 U/L) 286 H Total Protein (6.3 - 8.2 g/dL) 6.6 Albumin (3.5 - 5.0 g/dL) 4.2 Globulin (1.9 - 4.2 gm/dL) 2.4 Albumin/Globulin Ratio (1.1 - 2.2 %) 1.8 Total Beta HCG (NEGATIVE) NEGATIVE Cancelled Hematology CBC w Diff NO MAN DIFF REQ WBC (4.8 - 10.8 /CUMM) 10.0 RBC (4.20 - 5.40 /CUMM) 4.51 Hgb (12.0 - 16.0 G/DL) 12.3 Hct (37 - 47 %) 37.3 MCV (81.0 - 99.0 FL) 82.8 MCH (27.0 - 31.0 PG) 27.3 RDW (11.5 - 14.5 %) 13.5 Plt Count (130 - 400 /CUMM) 250 MPV (7.4 - 10.4 FL) 8.7 Gran % (42.2 - 75.2 %) 71.1 Lymphocytes % (20.5 - 51.1 %) 17.0 L Monocytes % (1.7 - 9.3 %) 8.7 Eosinophils % (0 - 5 %) 3.0 Basophils % (0.0 - 2.0 %) 0.2 Absolute Granulocytes (1.4 - 6.5 /CUMM) 7.1 H Absolute Lymphocytes (1.2 - 3.4 /CUMM) 1.7 Absolute Monocytes (0.10 - 0.60 /CUMM) 0.9 H Absolute Eosinophils (0.0 - 0.7 /CUMM) 0.3 Absolute Basophils (0.0 - 0.2 /CUMM) 0 PUBS MCHC (33.0 - 37.0 G/DL) 32.9 L Assessment/Plan Assessment/Plan I reviewed the CT scan on PACS myself it shows no fluid collections or subcutaneous air the some mild haziness on the left side of the mons you can see the packing it's not a large area. Impression is perineal cellulitis, etc. been lanced, there are no signs of abscess, so I don't recommend any more surgery right now, but she is prone to these, might be related to shaving fortunately she no longer smokes and is not diabetic perhaps there is an autoimmune component, but this area is risky and need to monitor for signs of spread or deepening a la [place]'s. Consult Acknowledgment - Thank you for your consult request.
--- NOTE | 2017-06-10 19:49 | PN- Att Addend ---
Attending Addendum Attending Brief Note Patient seen and examined. Plan of care discussed with the medical team and the patient. Available lab work and radiology test reports were reviewed. Patient appears comfortable she is lying in bed without any distress. She reports her pain is well controlled. She denies any recent fever chills nausea vomiting or abdominal pain. Denies any difficulty breathing. Her family is at the bedside. Vital Signs Date Time Temp Pulse Resp B/P B/P Pulse O2 O2 Flow FiO2 Mean Ox Delivery Rate 06/10 0654 97.8 73 16 118/58 94 06/10 0305 98.9 72 13 124/76 92 Room Air 06/09 2353 98.9 78 14 93/55 96 Room Air 06/09 2032 98 Room Air 06/09 2009 98.3 89 18 127/84 97 Room Air Intake & Output 06/10 1600 06/10 0800 06/10 0000 Intake Total 500 1000 50 Output Total 250 Balance 250 1000 50 Intake, IV 1000 Intake, Oral 500 50 Output, Urine 250 Patient 243 lb 243 lb Weight Weight Reported by Patient Reported by Patient Measurement Method Exam: General: Patient awake alert oriented without any distress CVS: S1 plus S2 without any murmur or gallops Chest: Few scattered crepitation without any wheeze. There is no respiratory distress. 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: Awake alert oriented without any focal neuro deficit and follows command appropriately Extremities: No edema; no clubbing or cyanosis noted Laboratory Tests 06/10 06/09 0645 2339 Chemistry Sodium (137 - 145 mmol/L) 141 Potassium (3.5 - 5.1 mmol/L) 4.4 Chloride (98 - 107 mmol/L) 103 Carbon Dioxide (22 - 30 mmol/L) 28 Anion Gap (5 - 16) 10 BUN (7 - 17 mg/dL) 5 L Creatinine (0.5 - 1.0 mg/dL) 0.9 Estimated GFR (>60 ml/min) > 60 BUN/Creatinine Ratio (7 - 25 %) 5.6 L Lactic Acid Cancelled Total Bilirubin (0.2 - 1.3 mg/dL) 0.5 Direct Bilirubin (< 0.4 mg/dL) 0.4 AST (14 - 36 U/L) 74 H ALT (9 - 52 U/L) 96 H Alkaline Phosphatase (<127 U/L) 257 H Total Protein (6.3 - 8.2 g/dL) 6.0 L Albumin (3.5 - 5.0 g/dL) 3.8 Hematology CBC w Diff NO MAN DIFF REQ WBC (4.8 - 10.8 /CUMM) 7.7 RBC (4.20 - 5.40 /CUMM) 4.34 Hgb (12.0 - 16.0 G/DL) 12.0 Hct (37 - 47 %) 36.1 L MCV (81.0 - 99.0 FL) 83.1 MCH (27.0 - 31.0 PG) 27.7 RDW (11.5 - 14.5 %) 14.1 Plt Count (130 - 400 /CUMM) 253 MPV (7.4 - 10.4 FL) 8.9 Gran % (42.2 - 75.2 %) 55.5 Lymphocytes % (20.5 - 51.1 %) 30.7 Monocytes % (1.7 - 9.3 %) 7.8 Eosinophils % (0 - 5 %) 5.4 H Basophils % (0.0 - 2.0 %) 0.6 Absolute Granulocytes (1.4 - 6.5 /CUMM) 4.3 Absolute Lymphocytes (1.2 - 3.4 /CUMM) 2.4 Absolute Monocytes (0.10 - 0.60 /CUMM) 0.6 Absolute Eosinophils (0.0 - 0.7 /CUMM) 0.4 Absolute Basophils (0.0 - 0.2 /CUMM) 0 PUBS MCHC (33.0 - 37.0 G/DL) 33.3 06/095 2056 Chemistry Sodium (137 - 145 mmol/L) 140 Potassium (3.5 - 5.1 mmol/L) 4.3 Chloride (98 - 107 mmol/L) 99 Carbon Dioxide (22 - 30 mmol/L) 30 Anion Gap (5 - 16) 10 BUN (7 - 17 mg/dL) 6 L Creatinine (0.5 - 1.0 mg/dL) 0.8 Estimated GFR (>60 ml/min) > 60 BUN/Creatinine Ratio (7 - 25 %) 7.5 Glucose (65 - 99 mg/dL) 91 Lactic Acid (0.7 - 2.1 mmol/L) 1.4 Calcium (8.4 - 10.2 mg/dL) 9.3 Total Bilirubin (0.2 - 1.3 mg/dL) 0.6 AST (14 - 36 U/L) 100 H ALT (9 - 52 U/L) 112 H Alkaline Phosphatase (<127 U/L) 286 H Total Protein (6.3 - 8.2 g/dL) 6.6 Albumin (3.5 - 5.0 g/dL) 4.2 Globulin (1.9 - 4.2 gm/dL) 2.4 Albumin/Globulin Ratio (1.1 - 2.2 %) 1.8 Total Beta HCG (NEGATIVE) NEGATIVE Cancelled Hematology CBC w Diff NO MAN DIFF REQ WBC (4.8 - 10.8 /CUMM) 10.0 RBC (4.20 - 5.40 /CUMM) 4.51 Hgb (12.0 - 16.0 G/DL) 12.3 Hct (37 - 47 %) 37.3 MCV (81.0 - 99.0 FL) 82.8 MCH (27.0 - 31.0 PG) 27.3 RDW (11.5 - 14.5 %) 13.5 Plt Count (130 - 400 /CUMM) 250 MPV (7.4 - 10.4 FL) 8.7 Gran % (42.2 - 75.2 %) 71.1 Lymphocytes % (20.5 - 51.1 %) 17.0 L Monocytes % (1.7 - 9.3 %) 8.7 Eosinophils % (0 - 5 %) 3.0 Basophils % (0.0 - 2.0 %) 0.2 Absolute Granulocytes (1.4 - 6.5 /CUMM) 7.1 H Absolute Lymphocytes (1.2 - 3.4 /CUMM) 1.7 Absolute Monocytes (0.10 - 0.60 /CUMM) 0.9 H Absolute Eosinophils (0.0 - 0.7 /CUMM) 0.3 Absolute Basophils (0.0 - 0.2 /CUMM) 0 PUBS MCHC (33.0 - 37.0 G/DL) 32.9 L Microbiology Date/Time Procedure - Status Source Growth 06/09 2233 Blood Culture - RES BLOOD 06/09 2200 Blood Culture - CAN BLOOD Cancelled: Quantity not sufficient for both blood culture bottles. 06/09 2135 Blood Culture - RES BLOOD CT pelvis Skin thickening and superficial soft tissue stranding in the left perineum extending into the mons pubis. Pattern is most consistent with inflammation/edema. This could be related to cellulitis. No evidence of deep tissue abscess or impending gangrene Assessment * Labial cellulitis/abscess status post I&D- patient seen by surgery. Surgical consult note reviewed. No further surgical intervention is needed at this time. * History of bipolar disorder and anxiety * Elevated liver enzyme likely fatty liver Plan * Await culture reports * Continue current antibiotics * Infectious disease consult
[2017-06-10 22:38] VITALS: BP 118/68
[2017-06-11 07:00] VITALS: BP 128/64
--- NOTE | 2017-06-11 09:27 | PN- Housestaff ---
Subjective Follow-up For: Labial Cellulitis Subjective: I saw and examined the patient today. States she is doing well. States there is still pain and tenderness in the labial region but has not required medication. Has had a dry dressing covering the area. The redness appears to have decreased from previous day. Denies fever, chills, n/v/d, +constipation - has not had bm since monday (due to pain meds), is passing gas. Denies chest pain, SOB, abdominal pain, or dysuria. Review of Systems Constitutional: Denies: see HPI. Objective Last 24 Hrs of Vital Signs/I&O Vital Signs Date Time Temp Pulse Resp B/P B/P Pulse O2 O2 Flow FiO2 Mean Ox Delivery Rate 06/11 1531 98.0 72 18 120/64 95 06/11 0700 98.7 83 18 128/64 94 06/10 2238 98.2 76 16 118/68 93 Intake & Output 06/11 1600 06/11 0800 06/11 0000 Intake Total 1400 720 675 Output Total 400 250 600 Balance 1000 470 75 Intake, IV 700 600 225 Intake, Oral 700 120 450 Number 0 Bowel Movements Output, Urine 400 250 600 Physical Exam General Appearance: Alert, Oriented X3, Cooperative, No Acute Distress HEENT: Atraumatic, EOMI, Mucous Membr. moist/pink Cardiovascular: Regular Rate, Normal S1, Normal S2 Lungs: Clear to Auscultation Abdomen: Normal Bowel Sounds, Soft, No Tenderness Vascular: Normal Pulses Reproductive (FEMALE) Labial region is erythematous, warm to touch, area marked by pen showing erythema is receding. Open wound on L labia with minimal drainage of a yellow green discharge. Assessment/Plan Assessment: This is a 41-year-old female with past medical history significant for bipolar, anxiety, UC now no longer on Asacol, who comes in for chief complaint of worsening labial cellulitis. During admission patient was afebrile, not tachycardic, and without white count. Patient will be admitted to the general medicine floor for further workup and management of pelvic cellulitis. ED workup shows: Vitals: 98.9, 78, 14, 93/55, 96CBC: White count 10.3, hemoglobin 12.3, hematocrit 37.3, platelet 270. BEP: BUN 6, creatinine 0.8. No lactic acidosis, negative beta-hCG. LFT: AST 100, ALT 112, alkaline phosphatase 286. CT pelvis: Shows prominent lymph nodes and stranding in left lower quadrant abdominal wall and mons pubis and peroneal region. No evidence of soft tissue gas or bony abnormalities. PLAN Pelvic cellulitis: Patient has history of MRSA from previous abscesses. This is her second time with a labial abscess in the last [address] does not show evidence of gas in tissue. No crepitus on physical exam. Surgical consult placed in ED for evaluation. Additionally, in ED patient got cefazolin, and Bactrim DS. Unfortunately, no cultures were sent from the drainage done in ER 2 days ago. At this time we will cover patient for MRSA and given close location to perirectal area will also cover other gram-positive, gram-negative bacilli and anaerobes. She did have one episode of hypotension with blood pressure 93/ 55, however this was after she received morphine. She has no white count, no evidence of fever in hospital, negative lactic acid, is not tachycardic or tachypneic. At this time it does not appear that she has sepsis secondary to cellulitis * Vancomycin 2 g every 12 * Unasyn 3 g every 6 * Surgery on board- as per surgery will manage conservatively with antibiotics * Consider ID consult in a.m. * Urinalysis - negative * U tox - + for amphetamines and opiates * WBC- normal, pt has been afebrile * genital labial culture pending Transaminitis: Patient has AST 100, ALT 112 alkaline phosphatase 286. She has history of cholecystectomy. Denies any right upper quadrant pain. At this time etiology is currently unclear. She does endorse history of alcohol but she states that it is recreational and that she engages infrequently. However, if suspicion is high place patient on CIWA protocol. Consider right upper quadrant ultrasound if LFTs continue to trend upward. * Monitor LFT * Patient has negative hepatitis panel in 2016 Bipolar/anxiety: Patient was unable to confirm her medications with me. She did not have a list. * Verify her medication doses and restart in a.m. Her medications likely include divalproex, Lamictal and Adderall. Full code regular diet chemical DVT prophylaxis Problem List: 1. Abscess of left genital labia 2. Pelvic cellulitis 3. Transaminitis Pain Ratin Pain Location: labial region Pain Goal: Remain pain free Pain Plan: roxicodone 5mg q6 morphine 2mg q4 Tomorrow's Labs & Rationales: cbc lfts
--- NOTE | 2017-06-11 10:57 | NUR ---
PT'S UPPER LIP APPEARS SWOLLEN. SHE DIENIES DIFFICULTY BREATHING, SWALLOWING FOOD OR DRINK, NO HIVES/ITCHING. MD DINH AWARE, AT BEDSIDE.
--- NOTE | 2017-06-11 13:30 | PN- Att Addend ---
Attending Addendum Attending Brief Note Patient seen and examined. Plan of care discussed with the medical team and the patient. Available lab work and radiology test reports were reviewed. Patient reports upper lip swelling this morning. He denies tongue swelling or dysphonia or dysphagia. Patient otherwise appears comfortable she is lying in bed without any distress. As per RN patient has been having light. Colored secretions from the labial area .She reports her pain is well controlled. She denies any recent fever chills nausea vomiting or abdominal pain. Denies any difficulty breathing. Vital Signs Date Time Temp Pulse Resp B/P B/P Pulse O2 O2 Flow FiO2 Mean Ox Delivery Rate 06/11 700 98.7 83 18 128/64 94 06/10 2238 98.2 76 16 118/68 93 Intake & Output 06/11 1600 06/11 0800 06/11 0000 Intake Total 720 675 Output Total 250 600 Balance 470 75 Intake, IV 600 225 Intake, Oral 120 450 Output, Urine 250 600 Exam: General: Patient awake alert oriented without any distress CVS: S1 plus S2 without any murmur or gallops Chest: Few scattered crepitation without any wheeze. There is no respiratory distress. Abdomen: Soft nontender, bowel sound present, no guarding or rebound RECYCLING TECHNICIAN: Awake alert oriented without any focal neuro deficit and follows command appropriately Extremities: No edema; no clubbing or cyanosis noted ENT: Upper lip is swollen but tongue is not swollen lower lip is normal. Laboratory Tests 06/10 1900 Toxicology Urine Opiates Screen (>2000 NG/ML) > 4000.00 H Methadone Screen (>300 NG/ML) 75 Barbiturate Screen (>200 NG/ML) < 60 Ur Phencyclidine Scrn (>25 NG/ML) < 6.00 Amphetamines Screen (>1000 NG/ML) > 1450 H U Benzodiazepines Scrn (>200 NG/ML) < 85 Urine Cocaine Screen (>300 NG/ML) < 50 Urine Cannabis Screen (>50 NG/ML) < 5.00 Urines Urine Color (YEL,AMB,STR) YEL Urine Clarity (CLEAR) CLEAR Urine pH (5.0 - 8.0) 6.0 Ur Specific [place] (1.001 - 1.035) 1.020 Urine Protein (NEG,<30 MG/DL) NEG Urine Ketones (NEG) NEG Urine Nitrite (NEG) NEG Urine Bilirubin (NEG) NEG Urine Urobilinogen (0.1 - 1.0 EU/dl) 0.2 Ur Leukocyte Esterase (NEG) NEG Ur Microscopic EXAM NOT REQUIRED Urine Hemoglobin (NEG) NEG Urine Glucose (N MG/DL) NEG Assessment * Labial cellulitis/abscess status post I&D- patient seen by surgery. Surgical consult note reviewed. No further surgical intervention is needed at this time. * History of bipolar disorder and anxiety * Elevated liver enzyme likely fatty liver * Upper lip swelling- suspected allergy likely due to food elements; patient currently does not have any skin rash; other possibility includes a allergic reaction to medication such as antibiotics Plan * Send culture of secretions from labial area * Continue current antibiotics * ID consult * Apply 1% her records including the upper lip; if lip swelling worsens patient should be given 40 mg of prednisone daily for 3 days. It is acute compromise but tongue swelling or respiratory distress patient may need IV Solu-Medrol, H2 blockers; suspicion is reporting mild itchiness of her skin which I believe is from her sunburn, she can be given 12.5 mg Benadryl every 6 hours when necessary.
[2017-06-11 15:31] VITALS: BP 120/64
--- NOTE | 2017-06-11 16:48 | NUR ---
AREA BELOW SURGICAL I&D SITE ON LEFT LABIA MAJORA FIRMER AND MORE PAINFUL. MORPHINE 2MG GIVEN, ICE APPLIED. MD DINH TEXT PAGED.
[2017-06-11 22:15] LABS: ABSOLUTE BASOPHIL COUNT 0 /CUMM (0.0-0.2); ABSOLUTE EOSINOPHIL COUNT 0.4 /CUMM (0.0-0.7); ABSOLUTE GRANULOCYTE CT 2.4 /CUMM (1.4-6.5); ABSOLUTE LYMPH COUNT 2.1 /CUMM (1.2-3.4); ABSOLUTE MONOCYTE COUNT 0.4 /CUMM (0.10-0.60); BASOPHIL % 0.7 % (0.0-2.0); EOSINOPHIL % 8.1 % (0-5); GRANULOCYTE % 44.3 % (42.2-75.2); HEMATOCRIT 33.1 % (37-47); MEAN CORPUSCULAR HGB 27.4 PG (27.0-31.0); MEAN CORPUSCULAR HGB CONC 32.8 G/DL (33.0-37.0); MEAN CORPUSCULAR VOLUME 83.2 FL (81.0-99.0); MEAN PLATELET VOLUME 8.4 FL (7.4-10.4); PLATELET COUNT 265 /CUMM (130-400); RBC DISTRIBUTION WIDTH 14.2 % (11.5-14.5); RED BLOOD CELL CT 3.98 /CUMM (4.20-5.40); WHITE BLOOD CELL COUNT 5.4 /CUMM (4.8-10.8)
[2017-06-11 23:44] VITALS: BP 122/70
[2017-06-12 06:45] VITALS: BP 100/62
--- NOTE | 2017-06-12 07:42 | PN- Housestaff ---
Subjective Follow-up For: Labial Cellulitis Complaints: pain scale (0-10) (PAIN 5/10) Subjective: I seen and examined the patient. Patient was sitting in her bed. She was having breakfast. She still complains of pain. She rates her pain 5 out of 10. The pain is nonradiating. It becomes worse when she has to move to use the bathroom. She states the redness has decreased. She denies any abdominal pain constipation, chest pain palpitations or shortness of breath. Patient reports that upper lip swelling has decreased. She denies tongue swelling or dysphonia or dysphagia. As per RN patient has been having light colored secretions from the labial area Review of Systems Constitutional: Denies: chills, diaphoresis, fever. Cardiovascular: Denies: chest pain, edema. Respiratory: Denies: hemoptysis, orthopnea. Gastrointestinal: Denies: diarrhea, distention, melena. Genitourinary: Reports: no symptoms. Musculoskeletal: Reports: no symptoms. Objective Last 24 Hrs of Vital Signs/I&O Vital Signs Date Time Temp Pulse Resp B/P B/P Pulse O2 O2 Flow FiO2 Mean Ox Delivery Rate 06/12 0645 98.4 80 20 100/62 95 06/11 2344 98.0 83 18 122/70 93 06/11 1531 98.0 72 18 120/64 95 Intake & Output 06/12 1600 06/12 0800 06/12 0000 Intake Total 700 500 Output Total Balance 700 500 Intake, IV 600 300 Intake, Oral 100 200 Physical Exam General Appearance: Alert, Oriented X3, Cooperative, No Acute Distress HEENT: upper lip little swollen better than yesterday, Tongue is not swollen lower lip is normal. Cardiovascular: Normal S1, Normal S2, No Murmurs Lungs: Clear to Auscultation, Normal Air Movement Abdomen: Normal Bowel Sounds, Soft, No Tenderness Neurological: Normal Speech Pelvic (FEMALE) labial region is erythematous, warm to touch, area marked by pen showing erythema is receding. Open wound on L labia with minimal drainage of a yellow green discharge. Current Medications: Current Medications Sig/Chata Start time Last Medication Dose Route Stop Time Status Admin Ampicillin Sodium/ 3,000 MG Q6H 06/11 2100 AC 06/12 Sulbactam Sodium IV 0848 Sodium Chloride 100 ML Ampicillin Sodium/ 3,000 MG Q6 06/10 0600 DC 06/11 Sulbactam Sodium IV 1501 Sodium Chloride 100 ML Clonazepam 1 MG QPM PRN 06/10 0445 AC PO 06/17 0444 Docusate Sodium 100 MG BID 06/10 1000 AC 06/11 PO 2142 Enoxaparin Sodium 40 MG DAILY 06/10 1000 AC 06/11 SC 1122 Escitalopram Oxalate 20 MG DAILY 06/10 1000 AC 06/11 PO 1122 Hydrocortisone 1 MARY BID 06/11 1104 AC 06/11 EXT 2146 Ibuprofen 600 MG Q6P PRN 06/10 0445 AC 06/12 PO 0856 Lactobacillus 1 CAP BID 06/11 2200 AC 06/11 Acidophilus PO 2150 Morphine Sulfate 2 MG Q4P PRN 06/10 0445 AC 06/11 IV 1510 Ondansetron HCl 4 MG Q6P PRN 06/10 044 AC IV Oxycodone HCl 5 MG Q6H PRN 06/10 0445 AC 06/11 PO 1045 Senna 187 MG DAILY 06/10 1000 AC 06/11 PO 1122 Sodium Chloride 1,000 ML Q13H 06/10 0445 AC 06/12 IV 0206 Vancomycin HCl 2,000 MG DAILY 06/10 1000 AC 06/11 Sodium Chloride 500 ML IV 1122 Last 24 Hrs of Lab/Kyle Results Last 24 Hrs of Labs/Mics: Laboratory Tests 06/12/17 0750: Total Bilirubin 0.1 L, Direct Bilirubin 0.1, AST 32, ALT 55 H, Alkaline Phosphatase 210 H, Total Protein 4.9 L, Albumin 2.9 L, CBC w Diff NO MAN DIFF REQ, RBC 3.89 L, MCV 82.9, MCH 27.6, RDW 14.2, MPV 8.4, Gran % 47.2, Lymphocytes % 36.0, Monocytes % 8.3, Eosinophils % 7.9 H, Basophils % 0.6, Absolute Granulocytes 2.3, Absolute Lymphocytes 1.8, Absolute Monocytes 0.4, Absolute Eosinophils 0.4, Absolute Basophils 0, PUBS MCHC 33.3 06/11/178: CBC w Diff NO MAN DIFF REQ, RBC 3.98 L, MCV 83.2, MCH 27.4, RDW 14.2, MPV 8.4, Gran % 44.3, Lymphocytes % 38.7, Monocytes % 8.2, Eosinophils % 8.1 H, Basophils % 0.7, Absolute Granulocytes 2.4, Absolute Lymphocytes 2.1, Absolute Monocytes 0.4, Absolute Eosinophils 0.4, Absolute Basophils 0, PUBS MCHC 32.8 L Microbiology 06/12 1400 GENITAL: Genital Culture - RECD 06/11 1838 GENITAL: Genital Culture - CAN Cancelled: SPECIMEN NOT RECEIVED IN LABORATORY Assessment/Plan Assessment: This is a 41-year-old female with past medical history significant for bipolar, anxiety, UC now no longer on Asacol, who comes in for chief complaint of worsening labial cellulitis. During admission patient was afebrile, not tachycardic, and without white count. Patient will be admitted to the general medicine floor for further workup and management of pelvic cellulitis. ED workup shows: Vitals: 98.9, 78, 14, 93/55, 96CBC: White count 10.3, hemoglobin 12.3, hematocrit 37.3, platelet 270. BEP: BUN 6, creatinine 0.8. No lactic acidosis, negative beta-hCG. LFT: AST 100, ALT 112, alkaline phosphatase 286. CT pelvis: Shows prominent lymph nodes and stranding in left lower quadrant abdominal wall and mons pubis and peroneal region. No evidence of soft tissue gas or bony abnormalities. PLAN Pelvic cellulitis: Patient has history of MRSA from previous abscesses. This is her second time with a labial abscess in the last [address] does not show evidence of gas in tissue. No crepitus on physical exam. Surgical consult placed in ED for evaluation. Additionally, in ED patient got cefazolin, and Bactrim DS. Unfortunately, no cultures were sent from the drainage done in ER 2 days ago. At this time we will cover patient for MRSA and given close location to perirectal area will also cover other gram-positive, gram-negative bacilli and anaerobes. She did have one episode of hypotension with blood pressure 93/ 55, however this was after she received morphine. She has no white count, no evidence of fever in hospital, negative lactic acid, is not tachycardic or tachypneic. At this time it does not appear that she has sepsis secondary to cellulitis. * As per ID we will continue Vancomycin 2 g every 12 and Unasyn 3 g every 6 for 10 to 15 days * As per surgery will manage conservatively with antibiotics * genital labial culture pending * ESR/CRP, CBC, BMP, TSH and Hb A1c in am. Upper lip swelling- suspected allergy likely due to food elements, detergent etc. Patient currently does not have any skin rash; other possibility includes a allergic reaction to medication such as antibiotics -Continue 1% hydrocortisone cream to the upper lip; if lip swelling worsens patient should be given 40 mg of prednisone daily for 3 days. If there is acute compromise with tongue swelling or respiratory distress patient may need IV Solu-Medrol, H2 blockers Skin itchiness Pt reported mild itchiness of her skin on arms yesterday which is believed to be from her sunburn, she can be given 12.5 mg Benadryl every 6 hours when necessary. Today she is symptom free. Vaginal candidiasis Patient is complaining of vaginal itchiness he has started her on miconazole suppository x7 day as per ID Transaminitis: praful has AST 100, ALT 112 alkaline phosphatase 286. She has history of cholecystectomy. Denies any right upper quadrant pain. At this time etiology is currently unclear. She does endorse history of alcohol but she states that it is recreational and that she engages infrequently. LFT trends suggest fatty liver.Patient has negative hepatitis panel in 2016 Lfts trending down. Bipolar/anxiety: confirm meds from pharmacy Full code regular diet chemical DVT prophylaxis Problem List: 1. Abscess 2. Pelvic cellulitis 3. Abscess of left genital labia Pain Ratin Pain Location: left labia Pain Goal: Pain 4 or less Pain Plan: ibubrofen 600 q6 oxycodone 5 q6 morphine 2mg q4 Tomorrow's Labs & Rationales: cbc bep
[2017-06-12 09:34] LABS: ABSOLUTE BASOPHIL COUNT 0 /CUMM (0.0-0.2); ABSOLUTE EOSINOPHIL COUNT 0.4 /CUMM (0.0-0.7); ABSOLUTE GRANULOCYTE CT 2.3 /CUMM (1.4-6.5); ABSOLUTE LYMPH COUNT 1.8 /CUMM (1.2-3.4); ABSOLUTE MONOCYTE COUNT 0.4 /CUMM (0.10-0.60); BASOPHIL % 0.6 % (0.0-2.0); EOSINOPHIL % 7.9 % (0-5); GRANULOCYTE % 47.2 % (42.2-75.2); HEMATOCRIT 32.3 % (37-47); MEAN CORPUSCULAR HGB 27.6 PG (27.0-31.0); MEAN CORPUSCULAR HGB CONC 33.3 G/DL (33.0-37.0); MEAN CORPUSCULAR VOLUME 82.9 FL (81.0-99.0); MEAN PLATELET VOLUME 8.4 FL (7.4-10.4); PLATELET COUNT 242 /CUMM (130-400); RBC DISTRIBUTION WIDTH 14.2 % (11.5-14.5); RED BLOOD CELL CT 3.89 /CUMM (4.20-5.40); WHITE BLOOD CELL COUNT 4.9 /CUMM (4.8-10.8)
--- NOTE | 2017-06-12 14:01 | PN- Att Addend ---
Attending Addendum Attending Brief Note Patient seen and examined. Plan of care discussed with the medical team and the patient. Available lab work and radiology test reports were reviewed. Patient reports that upper lip swelling has decreased. She denies tongue swelling or dysphonia or dysphagia. Patient otherwise appears comfortable she is lying in bed without any distress. As per RN patient has been having light. Colored secretions from the labial area .She reports her pain is well controlled. She denies any recent fever chills nausea vomiting or abdominal pain. Denies any difficulty breathing. Vital Signs Date Time Temp Pulse Resp B/P B/P Pulse O2 O2 Flow FiO2 Mean Ox Delivery Rate 06/12 0645 98.4 80 20 100/62 95 06/11 2344 98.0 83 18 122/70 93 06/11 1531 98.0 72 18 120/64 95 Intake & Output 06/12 1600 06/12 0800 06/12 0000 Intake Total 700 500 Output Total Balance 700 500 Intake, IV 600 300 Intake, Oral 100 200 Exam: General: Patient awake alert oriented without any distress CVS: S1 plus S2 without any murmur or gallops Chest: Few scattered crepitation without any wheeze. There is no respiratory distress. Abdomen: Soft nontender, bowel sound present, no guarding or rebound BOW MAKER CUSTOM: Awake alert oriented without any focal neuro deficit and follows command appropriately Extremities: No edema; no clubbing or cyanosis noted ENT: Upper lip is slightly swollen but tongue is not swollen lower lip is normal. Laboratory Tests 06/12 06/11 0750 2138 Chemistry Total Bilirubin (0.2 - 1.3 mg/dL) 0.1 L Direct Bilirubin (< 0.4 mg/dL) 0.1 AST (14 - 36 U/L) 32 ALT (9 - 52 U/L) 55 H Alkaline Phosphatase (<127 U/L) 210 H Total Protein (6.3 - 8.2 g/dL) 4.9 L Albumin (3.5 - 5.0 g/dL) 2.9 L Hematology CBC w Diff NO MAN DIFF REQ NO MAN DIFF REQ WBC (4.8 - 10.8 /CUMM) 4.9 5.4 RBC (4.20 - 5.40 /CUMM) 3.89 L 3.98 L Hgb (12.0 - 16.0 G/DL) 10.8 L 10.9 L Hct (37 - 47 %) 32.3 L 33.1 L MCV (81.0 - 99.0 FL) 82.9 83.2 MCH (27.0 - 31.0 PG) 27.6 27.4 RDW (11.5 - 14.5 %) 14.2 14.2 Plt Count (130 - 400 /CUMM) 242 265 MPV (7.4 - 10.4 FL) 8.4 8.4 Gran % (42.2 - 75.2 %) 47.2 44.3 Lymphocytes % (20.5 - 51.1 %) 36.0 38.7 Monocytes % (1.7 - 9.3 %) 8.3 8.2 Eosinophils % (0 - 5 %) 7.9 H 8.1 H Basophils % (0.0 - 2.0 %) 0.6 0.7 Absolute Granulocytes (1.4 - 6.5 /CUMM) 2.3 2.4 Absolute Lymphocytes (1.2 - 3.4 /CUMM) 1.8 2.1 Absolute Monocytes (0.10 - 0.60 /CUMM) 0.4 0.4 Absolute Eosinophils (0.0 - 0.7 /CUMM) 0.4 0.4 Absolute Basophils (0.0 - 0.2 /CUMM) 0 0 PUBS MCHC (33.0 - 37.0 G/DL) 33.3 32.8 L Microbiology Date/Time Procedure - Status Source Growth 06/12 1355 Genital Culture - ORD GENITAL 06/11 1838 Genital Culture - CAN GENITAL Cancelled: SPECIMEN NOT RECEIVED IN LABORATORY Assessment * Labial cellulitis/abscess status post I&D- patient seen by surgery. Surgical consult note reviewed. No further surgical intervention is needed at this time. * History of bipolar disorder and anxiety * Elevated liver enzyme likely fatty liver * Upper lip swelling- suspected allergy likely due to food elements; patient currently does not have any skin rash; other possibility includes a allergic reaction to medication such as antibiotics Plan * Follow-up report of culture of secretions from labial area * Continue current antibiotics * ID consult * Continue 1% hydrocortisone cream to the upper lip; if lip swelling worsens patient should be given 40 mg of prednisone daily for 3 days. If there is acute compromise with tongue swelling or respiratory distress patient may need IV Solu-Medrol, H2 blockers; suspicion is reporting mild itchiness of her skin which I believe is from her sunburn, she can be given 12.5 mg Benadryl every 6 hours when necessary.
[2017-06-12 14:51] VITALS: BP 112/60
--- NOTE | 2017-06-12 15:23 | Cons- Infect Disease ---
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 Abscess was lanced in ED (no culture available). The swelling spread and she returned to the ED on 06/09/17, further work up performed including labs and a CT scan. She denies fever or chills. No n/v/ diarrhea. While in the hospital treated w/ broad spectrum abx (iv Vancomycin/Unasyn); wound initially was packed; currently at the site of previous incision thick purulent drainage present (culture obtained) and persistent local pain and induration involving left labia and mons pubis. She c/o vaginal itching. Allergies/Medications Allergies: Coded Allergies: doxycycline (Mild, abdominal pain, VOMITING 06/07/17) Home Med List: Cephalexin (Keflex) 500 MG CAPSULE 1 CAP PO 4 TIMES/DAY ABSCESS Clonazepam 1 MG TABLET 1 TAB PO PRN ANXIETY (Reported) Dextroamphetamine/Amphetamine (Adderall XR 20 MG Capsule) 20 MG CAP.ER.24H 1 CAP PO QAM ADD (Reported) Divalproex Sodium (Divalproex Sodium ER) 250 MG TAB.ER.24H 1 TAB PO QPM MENTAL HEALTH (Reported) Escitalopram Oxalate 20 MG TABLET 1 TAB PO QAM MENTAL HEALTH (Reported) Ibuprofen 800 MG TABLET 1 TAB PO TID pain Lamotrigine 25 MG TABLET 1 TAB PO QPM MENTAL HEALTH (Reported) Oxycodone HCl/Acetaminophen (Oxycodone-Acetaminophen 10-325) 10 MG-325 MG TABLET 1 TAB PO Q6H PRN PAIN (Reported) Oxycodone HCl/Acetaminophen (Percocet 5-325 MG Tablet) 5 MG-325 MG TABLET 1 TAB PO 4XDP PRN PAIN TEN...[id number] Sulfamethoxazole/Trimethoprim (Sulfamethoxazole-Tmp Ds Tablet) 800 MG-160 MG TABLET 1 TAB PO BID ANTIBIOTIC (Reported) Sulfamethoxazole/Trimethoprim (Bactrim Ds Tablet) 800 MG-160 MG TABLET 1 TAB PO BID ABSCESS Current Medications: Current Medications Sig/Chata Start time Last Medication Dose Route Stop Time Status Admin Ampicillin Sodium/ 3,000 MG Q6H 06/11 2100 AC 06/12 Sulbactam Sodium IV 0848 Sodium Chloride 100 ML Ampicillin Sodium/ 3,000 MG Q6 06/10 0600 DC 06/11 Sulbactam Sodium IV 1501 Sodium Chloride 100 ML Clonazepam 1 MG QPM PRN 06/10 0445 AC PO 06/17 0444 Docusate Sodium 100 MG BID 06/10 1000 AC 06/12 PO 0954 Enoxaparin Sodium 40 MG DAILY 06/10 1000 AC 06/12 SC 0955 Escitalopram Oxalate 20 MG DAILY 06/10 1000 AC 06/12 PO 0954 Hydrocortisone 1 MARY BID 06/11 1104 AC 06/12 EXT 0957 Ibuprofen 600 MG Q6P PRN 06/10 0445 AC 06/12 PO 0856 Lactobacillus 1 CAP BID 06/11 2200 AC 06/12 Acidophilus PO 0955 Morphine Sulfate 2 MG Q4P PRN 06/10 0445 AC 06/11 IV 1510 Ondansetron HCl 4 MG Q6P PRN 06/10 0445 AC IV Oxycodone HCl 5 MG Q6H PRN 06/10 0445 AC 06/11 PO 1045 Senna 187 MG DAILY 06/10 1000 AC 06/12 PO 0954 Sodium Chloride 1,000 ML Q13H 06/10 0445 AC 06/12 IV 0206 Vancomycin HCl 2,000 MG DAILY 06/10 1000 AC 06/12 Sodium Chloride 500 ML IV 1017 Past History Travel History Traveled to [place] past 21 day No Medical History Blood Transfusion Hx: No Neurological: NONE EENT: NONE Cardiovascular: hyperlipidemia Respiratory: bronchitis, obstructive sleep apnea Gastrointestinal: ulcerative colitis Hepatic: NONE Renal: NONE Musculoskeletal: falls Psychiatric: anxiety, bipolar disease Endocrine: NONE Blood Disorders: NONE Cancer(s): NONE 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 Home Services at Home: NONE Smoking Status: Former Smoker Functional Ability ADLs Independent: dressing, eating, toileting, bathing. Ambulation: independent IADLs Independent: shopping, housework, finances, food prep, telephone, transportation , medication admin. Review of Systems Comments 12 points reviewed as noted, otherwise negative. Exam & Diagnostic Data Last 24 Hrs of Vital Signs/I&O Vital Signs Date Time Temp Pulse Resp B/P B/P Pulse O2 O2 Flow FiO2 Mean Ox Delivery Rate 06/12 1451 98.1 73 20 112/60 97 Room Air 06/12 0645 98.4 80 20 100/62 95 06/11 2344 98.0 83 18 122/70 93 06/11 1531 98.0 72 18 120/64 95 Intake & Output 06/12 1600 06/12 0800 06/12 0000 Intake Total 700 500 Output Total Balance 700 500 Intake, IV 600 300 Intake, Oral 100 200 Physical Exam Other Physical Findings: General Appearance Elevated BMI >32, Cooperative, No Acute Distress Skin patient's left labia has 0.5 cm open area with purulent purulent drainage. Labia and mons pubis erythematous/induration/tenderness present. HEENT Atraumatic, PERRLA, EOMI, Mucous Membr. moist/pink Neck Supple, No LAD Cardiovascular Regular Rate, Normal S1, Normal S2, No Murmurs Lungs Normal Air Movement Abdomen Soft, No Tenderness Extremities No Edema Neuro: Alert, Oriented X3, CN 2-12 wnl Last 24 Hours of Lab Results: Laboratory Tests 06/12 06/11 0750 2138 Chemistry Total Bilirubin (0.2 - 1.3 mg/dL) 0.1 L Direct Bilirubin (< 0.4 mg/dL) 0.1 AST (14 - 36 U/L) 32 ALT (9 - 52 U/L) 55 H Alkaline Phosphatase (<127 U/L) 210 H Total Protein (6.3 - 8.2 g/dL) 4.9 L Albumin (3.5 - 5.0 g/dL) 2.9 L Hematology CBC w Diff NO MAN DIFF REQ NO MAN DIFF REQ WBC (4.8 - 10.8 /CUMM) 4.9 5.4 RBC (4.20 - 5.40 /CUMM) 3.89 L 3.98 L Hgb (12.0 - 16.0 G/DL) 10.8 L 10.9 L Hct (37 - 47 %) 32.3 L 33.1 L MCV (81.0 - 99.0 FL) 82.9 83.2 MCH (27.0 - 31.0 PG) 27.6 27.4 RDW (11.5 - 14.5 %) 14.2 14.2 Plt Count (130 - 400 /CUMM) 242 265 MPV (7.4 - 10.4 FL) 8.4 8.4 Gran % (42.2 - 75.2 %) 47.2 44.3 Lymphocytes % (20.5 - 51.1 %) 36.0 38.7 Monocytes % (1.7 - 9.3 %) 8.3 8.2 Eosinophils % (0 - 5 %) 7.9 H 8.1 H Basophils % (0.0 - 2.0 %) 0.6 0.7 Absolute Granulocytes (1.4 - 6.5 /CUMM) 2.3 2.4 Absolute Lymphocytes (1.2 - 3.4 /CUMM) 1.8 2.1 Absolute Monocytes (0.10 - 0.60 /CUMM) 0.4 0.4 Absolute Eosinophils (0.0 - 0.7 /CUMM) 0.4 0.4 Absolute Basophils (0.0 - 0.2 /CUMM) 0 0 PUBS MCHC (33.0 - 37.0 G/DL) 33.3 32.8 L Last 24 Hours of Kyle Results: SPEC #: [id number] ARIEL: 06/12/17 STATUS: RECD RECD: 06/12/171414 SUBM DR: YANNI BARRAGAN,SAVITA SOURCE: GENITAL ENTR: 06/12/[address]: DESIRE BARRAGAN,DAYRON SPDESC: BALDO SCHWAB MD,TOY HARE MD, [facility] ORDERED: GENITAL CULTURE Procedure Result GENITAL CULTURE GENITAL CULTURES HELD THREE DAYS TO RULE OUT GONORRHEA Diagnostic Data Recent Imaging Findings: SERVICE DATE: 06/09/17 EXAM TYPE: CAT - CT PELVIS W IV CONTRAST EXAMINATION: CT PELVIS WITH IV CONTRAST CLINICAL INFORMATION: . Labral and left pelvic induration COMPARISON: None TECHNIQUE: Helical scanning was performed with submillimeter collimation through the pelvis with 95 mL of Optiray 320 intravenous contrast. Sagittal and coronal multiplanar 2-D reconstructions were obtained. DLP: 1177 mGy-cm FINDINGS: PELVIS: The urinary bladder appears within normal limits. The uterus is surgically absent. No suspicious adnexal mass. There is no free pelvic fluid. There is no localized bowel wall thickening demonstrated. There is a normal appendix. There is no iliac artery aneurysm. There are some numerous prominent inguinal lymph nodes. There are some nonenlarged external iliac lymph nodes on each side. Partially included midline ventral abdominal wall hernia. There is nonspecific stranding in the left lower quadrant abdominal wall. There is more localized moderately severe stranding and skin thickening in the mons pubis and perineal region on the left. There is no drainable fluid collection. No soft tissue gas. There is no involvement of the pelvic girdle muscles. OSSEOUS STRUCTURES: No focal bony lesion IMPRESSION: Skin thickening and superficial soft tissue stranding in the left perineum extending into the mons pubis. Pattern is most consistent with inflammation/edema. This could be related to cellulitis. 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 Labial abscess (likely pathogens Staph, Strep. spp, less likely GNR/anaerobes) H/O MRSA colonization Sx of vaginal candidiasis;miconazole suppos qhs x7 d. Suggestion: 1. F/U local wound culture to further guide antibiotic treatment. 2. Continue unasyn 3 gm q 6 h and vancomycin 2 gm q 12 h; vanco trough in am 06/13; goal trough 10-15. 3. ESR/CRP, CBC, BMP, TSH and Hb A1c in am. 4. If no improvement surgery follow up for further eval. Consult Acknowledgment - Thank you for your consult request.
[2017-06-12 22:29] VITALS: BP 124/82
[2017-06-13 06:21] VITALS: BP 120/80
--- NOTE | 2017-06-13 08:00 | PN- Housestaff ---
Subjective Follow-up For: labial cellulitis Subjective: I have seen and examined the patient. The patient was sleeping. She was easily arousable. But wanted to rest. She told me that her lip swelling has improved a lot. Her labial cellulitis is about the same. She experiences some pain when she needs to use the restroom. Otherwise she does not have any complaints. She denies any shortness of breath palpitations or chest pain. Her mother is going to visit her today. There is no mouth or tongue swelling Review of Systems Constitutional: Denies: chills, diaphoresis, fever. Cardiovascular: Denies: chest pain, edema, orthopena. Respiratory: Denies: cough, short of breath. Gastrointestinal: Denies: bloating, constipation, diarrhea. Musculoskeletal: Reports: no symptoms. Objective Last 24 Hrs of Vital Signs/I&O Vital Signs Date Time Temp Pulse Resp B/P B/P Pulse O2 O2 Flow FiO2 Mean Ox Delivery Rate 06/13 0621 97.4 61 18 120/80 94 Room Air 06/12 2229 97.4 69 19 124/82 97 06/12 1451 98.1 73 20 112/60 97 Room Air Intake & Output 06/13 0800 06/13 0000 06/12 1600 Intake Total 707 739 6663.5 Output Total Balance 091 977 0089.5 Intake, IV 645 389 9392.5 Intake, Oral 600 Physical Exam General Appearance: Alert, Oriented X3, Cooperative, No Acute Distress Skin: No Rashes, No Breakdown HEENT: upper lip little swelling improving, Tongue is not swollen lower lip is normal. Cardiovascular: Normal S1, Normal S2, No Murmurs Lungs: Clear to Auscultation, Normal Air Movement Abdomen: Normal Bowel Sounds, Soft, No Tenderness Neurological: Normal Speech Reproductive (FEMALE) labial region is erythematous, warm to touch, area marked by pen showing erythema is receding. Open wound on L labia with minimal drainage of a yellow green discharge Current Medications: Current Medications Sig/Chata Start time Last Medication Dose Route Stop Time Status Admin Ampicillin Sodium/ 3,000 MG Q6H 06/11 2100 AC 06/13 Sulbactam Sodium IV 0356 Sodium Chloride 100 ML Clonazepam 1 MG QPM PRN 06/10 0445 AC PO 06/17 0444 Diphenhydramine HCl 25 MG Q6P PRN 06/12 1800 AC PO Docusate Sodium 100 MG BID 06/10 1000 AC 06/12 PO 2157 Enoxaparin Sodium 40 MG DAILY 06/10 1000 AC 06/12 SC 0955 Escitalopram Oxalate 20 MG DAILY 06/10 1000 AC 06/12 PO 0954 Hydrocortisone 1 MARY BID 06/11 1104 AC 06/12 EXT 2200 Ibuprofen 800 MG .STK-MED ONE 06/12 1724 DC PO 06/12 1725 Ibuprofen 600 MG Q6P PRN 06/10 0445 AC 06/12 PO 1725 Lactobacillus 1 CAP BID 06/11 2200 AC 06/12 Acidophilus PO 2157 Miconazole Nitrate 1 SUP AT BEDTIME 06/12 220 AC 06/12 VAG 2202 Morphine Sulfate 2 MG Q4P PRN 06/10 0445 AC 06/12 IV 2038 Ondansetron HCl 4 MG Q6P PRN 06/10 0445 AC IV Oxycodone HCl 5 MG Q6H PRN 06/10 0445 AC 06/11 PO 1045 Senna 187 MG DAILY 06/10 1000 AC 06/12 PO 0954 Sodium Chloride 1,000 ML Q13H 06/10 0445 DC 06/12 IV 0206 Vancomycin HCl 2,000 MG DAILY 06/10 1000 AC 06/12 Sodium Chloride 500 ML IV 1017 Last 24 Hrs of Lab/Kyle Results Last 24 Hrs of Labs/Mics: Laboratory Tests 06/13/17 0730: Anion Gap 7, Estimated GFR > 60, BUN/Creatinine Ratio 14.3, Hemoglobin A1c 5.5, Total Bilirubin 0.4, Direct Bilirubin 0.3, AST 36, ALT 51, Alkaline Phosphatase 175 H, C-React Prot High Sens 13.0 H, Total Protein 5.0 L, Albumin 2.9 L, TSH 4.070 Microbiology 06/12 1400 GENITAL: Genital Culture - RES STAPH AUREUS Assessment/Plan Assessment: This is a 41-year-old female with past medical history significant for bipolar, anxiety, UC now no longer on Asacol, who comes in for chief complaint of worsening labial cellulitis. During admission patient was afebrile, not tachycardic, and without white count. Patient will be admitted to the general medicine floor for further workup and management of pelvic cellulitis. ED workup shows: Vitals: 98.9, 78, 14, 93/55, 96CBC: White count 10.3, hemoglobin 12.3, hematocrit 37.3, platelet 270. BEP: BUN 6, creatinine 0.8. No lactic acidosis, negative beta-hCG. LFT: AST 100, ALT 112, alkaline phosphatase 286. CT pelvis: Shows prominent lymph nodes and stranding in left lower quadrant abdominal wall and mons pubis and peroneal region. No evidence of soft tissue gas or bony abnormalities. PLAN Pelvic cellulitis: Patient has history of MRSA from previous abscesses. This is her second time with a labial abscess in the last [address] does not show evidence of gas in tissue. No crepitus on physical exam. Surgical consult placed in ED for evaluation. Additionally, in ED patient got cefazolin, and Bactrim DS. Unfortunately, no cultures were sent from the drainage done in ER 2 days ago. At this time we will cover patient for MRSA and given close location to perirectal area will also cover other gram-positive, gram-negative bacilli and anaerobes. She did have one episode of hypotension with blood pressure 93/ 55, however this was after she received morphine. She has no white count, no evidence of fever in hospital, negative lactic acid, is not tachycardic or tachypneic. At this time it does not appear that she has sepsis secondary to cellulitis. * As per ID we will increase Vancomycin 2 g every 12 and continue Unasyn 3 g every 6- day 4 today * Vanco trough was not done! goal trough 10-15. she has already recieved her 4th dose, now it will be a random vanc level * As per surgery will manage conservatively with antibiotics * genital labial culture pending * ESR pending CRP 13H TSH 4.07N and Hb A1c 5.5N Upper lip swelling- suspected allergy likely due to food elements, detergent etc. Patient currently does not have any skin rash; other possibility includes a allergic reaction to medication such as antibiotics * Continue 1% hydrocortisone cream to the upper lip; * if lip swelling worsens patient should be given 40 mg of prednisone daily for 3 days. * If there is acute compromise with tongue swelling or respiratory distress patient may need IV Solu-Medrol, H2 blockers Skin itchiness Pt reported mild itchiness of her skin on arms yesterday which is believed to be from her sunburn, she can be given 12.5 mg Benadryl every 6 hours when necessary. Today she is symptom free. Vaginal candidiasis Patient is complaining of vaginal itchiness he has started her on miconazole suppository x7 day as per ID Day6 today Transaminitis: praful has AST 100, ALT 112 alkaline phosphatase 286. She has history of cholecystectomy. Denies any right upper quadrant pain. At this time etiology is currently unclear. She does endorse history of alcohol but she states that it is recreational and that she engages infrequently. LFT trends suggest fatty liver.Patient has negative hepatitis panel in 2016 Lfts trending down. Bipolar/anxiety: Medication have been confirmed from pharmacy * Continue Lamictal 50 mg at bedtime * continue Depakote E5 100 MG at bedtime * continue Clonazepam 1 mg BID * continue Escitalopram 20 mg daily * Patient takes adderall XR which is not available at our pharmacy as per pharmacy recommendations we will continue Ritalin 10 mg 3 times a day Full code regular diet chemical DVT prophylaxis Problem List: 1. Pelvic cellulitis 2. Abscess of pelvis Pain Ratin Pain Location: left labia Pain Goal: Pain 4 or less Pain Plan: ibubrofen 600 q6 oxycodone 5 q6 morphine 2mg q4 Tomorrow's Labs & Rationales: cbc bep
--- NOTE | 2017-06-13 08:27 | PN- Att Addend ---
Attending Addendum Attending Brief Note Patient seen and examined. Plan of care discussed with the medical team and the patient. Available lab work and radiology test reports were reviewed. Patient reports that upper lip swelling has decreased. She denies tongue swelling or dysphonia or dysphagia. Patient otherwise appears comfortable she is lying in bed without any distress. She reports her pain is well controlled. She denies any recent fever chills nausea vomiting or abdominal pain. Denies any difficulty breathing. Vital Signs Date Time Temp Pulse Resp B/P B/P Pulse O2 O2 Flow FiO2 Mean Ox Delivery Rate 06/13 0621 97.4 61 18 120/80 94 Room Air 06/12 2229 97.4 69 19 124/82 97 06/12 1451 98.1 73 20 112/60 97 Room Air Intake & Output 06/13 1600 06/13 0800 06/13 0000 Intake Total 100 600 Output Total Balance 100 600 Intake, IV 100 600 Exam: General: Patient awake alert oriented without any distress CVS: S1 plus S2 without any murmur or gallops Chest: Few scattered crepitation without any wheeze. There is no respiratory distress. 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 Laboratory Tests 06/13 0730 Chemistry Sodium (137 - 145 mmol/L) 139 Potassium (3.5 - 5.1 mmol/L) 4.7 Chloride (98 - 107 mmol/L) 106 Carbon Dioxide (22 - 30 mmol/L) 26 Anion Gap (5 - 16) 7 BUN (7 - 17 mg/dL) 10 Creatinine (0.5 - 1.0 mg/dL) 0.7 Estimated GFR (>60 ml/min) > 60 BUN/Creatinine Ratio (7 - 25 %) 14.3 Hemoglobin A1c (4.2 - 5.8 %) 5.5 Total Bilirubin (0.2 - 1.3 mg/dL) 0.4 Direct Bilirubin (< 0.4 mg/dL) 0.3 AST (14 - 36 U/L) 36 ALT (9 - 52 U/L) 51 Alkaline Phosphatase (<127 U/L) 175 H C-React Prot High Sens (1.0 - 3.0 mg/L) 13.0 H Total Protein (6.3 - 8.2 g/dL) 5.0 L Albumin (3.5 - 5.0 g/dL) 2.9 L TSH (0.270 - 4.200 uIU/mL) 4.070 Microbiology Date/Time Procedure - Status Source Growth 06/12 1400 Genital Culture - RES GENITAL STAPH AUREUS Culture from the abscess pending. Assessment * Labial cellulitis/abscess status post I&D- patient seen by surgery. No further surgical intervention is needed at this time. * History of bipolar disorder and anxiety * Elevated liver enzyme likely fatty liver * Upper lip swelling- suspected allergy likely due to food elements; patient currently does not have any skin rash; doubt allergic reaction to medication such as antibiotics Plan * Follow-up report of culture of secretions from labial area * Continue current antibiotics * ID consult note reviewed. agree with increasing dose of vanco
--- NOTE | 2017-06-13 11:32 | PN- Infect Dx ---
Subjective Subjective: Feeling better; decreased induration/redness mons pubis/l labia No fever. Objective Last 24 Hrs of Vital Signs/I&O Vital Signs Date Time Temp Pulse Resp B/P B/P Pulse O2 O2 Flow FiO2 Mean Ox Delivery Rate 06/13 0621 97.4 61 18 120/80 94 Room Air 06/12 2229 97.4 69 19 124/82 97 06/12 1451 98.1 73 20 112/60 97 Room Air Intake & Output 06/13 1600 06/13 0800 06/13 0000 Intake Total 100 600 Output Total Balance 100 600 Intake, IV 100 600 Physical Exam Other Physical Findings: Other Physical Findings: General Appearance Elevated BMI >32, Cooperative, No Acute Distress Skin patient's left labia has 0.5 cm open area with purulent purulent drainage. L labia and mons pubis with improving erythemata/ decreased induration and tenderness. Fungal rask L inguinal area. HEENT Atraumatic, PERRLA, EOMI, Mucous Membr. moist/pink Neck Supple, No LAD Cardiovascular Regular Rate, Normal S1, Normal S2, No Murmur Lungs BS present no rales Abdomen Soft, No Tenderness Extremities No pedal Edema Neuro: Alert, Oriented X3, CN 2-12 wnl Results Last 24 Hours of Lab Results: Laboratory Tests 06/13 0730 Chemistry Sodium (137 - 145 mmol/L) 139 Potassium (3.5 - 5.1 mmol/L) 4.7 Chloride (98 - 107 mmol/L) 106 Carbon Dioxide (22 - 30 mmol/L) 26 Anion Gap (5 - 16) 7 BUN (7 - 17 mg/dL) 10 Creatinine (0.5 - 1.0 mg/dL) 0.7 Estimated GFR (>60 ml/min) > 60 BUN/Creatinine Ratio (7 - 25 %) 14.3 Hemoglobin A1c (4.2 - 5.8 %) 5.5 Total Bilirubin (0.2 - 1.3 mg/dL) 0.4 Direct Bilirubin (< 0.4 mg/dL) 0.3 AST (14 - 36 U/L) 36 ALT (9 - 52 U/L) 51 Alkaline Phosphatase (<127 U/L) 175 H C-React Prot High Sens (1.0 - 3.0 mg/L) 13.0 H Total Protein (6.3 - 8.2 g/dL) 5.0 L Albumin (3.5 - 5.0 g/dL) 2.9 L TSH (0.270 - 4.200 uIU/mL) 4.070 Last 24 Hours of Kyle Results: SPEC #: [id number] ARIEL: 06/12/17-1400 STATUS: RES RECD: 06/12/17-[address]: YANNI BARRAGAN,SAVITA SOURCE: GENITAL ENTR: 06/12/17-[address]: DESIRE [facility] BALDO SCHWAB MD,TOY HARE MD, [facility] ORDERED: GENITAL CULTURE Procedure Result > GENITAL CULTURE Preliminary 06/13/17-1019 Scant growth of STAPH AUREUS ISOLATED NOTE THIS IS A PRELIMINARY REPORT: IF: patient has had significant exposure to a healthcare setting in the past three (3) months, THEN: suspect Methicillin Resistant Staph aureus and place patient on Contact precautions Recent Imaging Studies: n/a Assessment/Plan Impression: 41-year-old ex-smoker nondiabetic with a history bipolar dx, UC and 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 Labial abscess (preliminary cx + S. aureus) H/O MRSA colonization Sx of vaginal candidiasis;miconazole suppos qhs x7 d. Suggestion: 1. F/U final wound culture results to further guide antibiotic treatment. 2. Continue unasyn 3 gm q 6 h and increase vancomycin to 2 gm q 12 h (currently likely underdosed; dose per pharmacy 15-20 mg/kg q 12 h); if final cx no anaerobes can d/c Unasyn. Vanco trough not collected this am; goal trough 10-15. 3. Trend CBC/BMP.
--- NOTE | 2017-06-13 13:29 | NUR ---
PT NOTED TO BE DROWSY AT TIMES TODAY DESPITE NOT RECEIVING ANY PAIN MEDICATIONS. PT REPORTED SHE'S BEEN SELF-MEDICATING PER HER OWN SCHEDULE WITH HER OWN PILL CASSETTE FROM HOME. MEDICATION BOX TAKEN BY THIS RN. DR. ALVAREZ MADE AWARE. [employer] FE[employer] INFORMED. MED PLACED IN VALUABLES BAG AND BROUGHT TO PHARMACY PER PHARMACIST'S RECOMMENDATIONS. PT EDUCATED. SAFETY MAINTAINED. WILL CONT TO MONITOR.
[2017-06-13 15:15] VITALS: BP 128/80
[2017-06-13 17:04] LABS: ABSOLUTE BASOPHIL COUNT 0 /CUMM (0.0-0.2); ABSOLUTE EOSINOPHIL COUNT 0.3 /CUMM (0.0-0.7); ABSOLUTE GRANULOCYTE CT 3.6 /CUMM (1.4-6.5); ABSOLUTE LYMPH COUNT 1.5 /CUMM (1.2-3.4); ABSOLUTE MONOCYTE COUNT 0.4 /CUMM (0.10-0.60); BASOPHIL % 0.5 % (0.0-2.0); EOSINOPHIL % 5.4 % (0-5); GRANULOCYTE % 61.8 % (42.2-75.2); HEMATOCRIT 33.3 % (37-47); MEAN CORPUSCULAR HGB 27.5 PG (27.0-31.0); MEAN CORPUSCULAR HGB CONC 33.3 G/DL (33.0-37.0); MEAN CORPUSCULAR VOLUME 82.7 FL (81.0-99.0); MEAN PLATELET VOLUME 8.3 FL (7.4-10.4); PLATELET COUNT 283 /CUMM (130-400); RBC DISTRIBUTION WIDTH 14.1 % (11.5-14.5); RED BLOOD CELL CT 4.03 /CUMM (4.20-5.40); WHITE BLOOD CELL COUNT 5.8 /CUMM (4.8-10.8)
[2017-06-13 22:35] VITALS: BP 118/72
[2017-06-14 07:45] VITALS: BP 137/88
--- NOTE | 2017-06-14 08:20 | PN- Att Addend ---
Attending Addendum Attending Brief Note Patient seen and examined. Plan of care discussed with the medical team and the patient. Available lab work and radiology test reports were reviewed. Patient appears comfortable she is lying in bed without any distress. She reports her pain is well controlled. She denies any recent fever chills nausea vomiting or abdominal pain. Denies any difficulty breathing. Vital Signs Date Time Temp Pulse Resp B/P B/P Pulse O2 O2 Flow FiO2 Mean Ox Delivery Rate 06/14 0745 98.1 66 20 137/88 97 Room Air 06/13 2235 98.8 64 20 118/72 97 Room Air 06/13 1515 97.9 70 20 128/80 97 Room Air Intake & Output 06/14 1600 06/14 0800 06/14 0000 Intake Total 320 960 Output Total Balance 320 960 Intake, IV 200 240 Intake, Oral 120 720 Exam: General: Patient awake alert oriented without any distress CVS: S1 plus S2 without any murmur or gallops Chest: Few scattered crepitation without any wheeze. There is no respiratory distress. 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 Laboratory Tests 06/14 06/13 0735 1620 Chemistry Sodium (137 - 145 mmol/L) 140 Potassium (3.5 - 5.1 mmol/L) 4.4 Chloride (98 - 107 mmol/L) 104 Carbon Dioxide (22 - 30 mmol/L) 27 Anion Gap (5 - 16) 9 BUN (7 - 17 mg/dL) 6 L Creatinine (0.5 - 1.0 mg/dL) 0.8 Estimated GFR (>60 ml/min) > 60 BUN/Creatinine Ratio (7 - 25 %) 7.5 Total Bilirubin (0.2 - 1.3 mg/dL) 0.2 Direct Bilirubin (< 0.4 mg/dL) 0.1 AST (14 - 36 U/L) 72 H ALT (9 - 52 U/L) 78 H Alkaline Phosphatase (<127 U/L) 170 H Total Protein (6.3 - 8.2 g/dL) 5.4 L Albumin (3.5 - 5.0 g/dL) 3.4 L Hematology CBC w Diff NO MAN DIFF REQ NO MAN DIFF REQ WBC (4.8 - 10.8 /CUMM) 6.5 5.8 RBC (4.20 - 5.40 /CUMM) 4.39 4.03 L Hgb (12.0 - 16.0 G/DL) 11.9 L 11.1 L Hct (37 - 47 %) 36.2 L 33.3 L MCV (81.0 - 99.0 FL) 82.5 82.7 MCH (27.0 - 31.0 PG) 27.2 27.5 RDW (11.5 - 14.5 %) 14.2 14.1 Plt Count (130 - 400 /CUMM) 268 283 MPV (7.4 - 10.4 FL) 8.1 8.3 Gran % (42.2 - 75.2 %) 57.0 61.8 Lymphocytes % (20.5 - 51.1 %) 29.0 25.7 Monocytes % (1.7 - 9.3 %) 7.6 6.6 Eosinophils % (0 - 5 %) 5.7 H 5.4 H Basophils % (0.0 - 2.0 %) 0.7 0.5 Absolute Granulocytes (1.4 - 6.5 /CUMM) 3.7 3.6 Absolute Lymphocytes (1.2 - 3.4 /CUMM) 1.9 1.5 Absolute Monocytes (0.10 - 0.60 /CUMM) 0.5 0.4 Absolute Eosinophils (0.0 - 0.7 /CUMM) 0.4 0.3 Absolute Basophils (0.0 - 0.2 /CUMM) 0 0 PUBS MCHC (33.0 - 37.0 G/DL) 33.0 33.3 ESR Westergren (0 - 20 MM) 18 Toxicology Random Vancomycin Cancelled Culture from the abscess site is growing MRSA Assessment * Labial cellulitis/abscess status post I&D- patient seen by surgery. No further surgical intervention is needed at this time. Cultures grew MRSA * History of bipolar disorder and anxiety * Elevated liver enzyme likely fatty liver * Upper lip swelling- suspected allergy likely due to food elements; patient currently does not have any skin rash; doubt allergic reaction to medication such as antibiotics Plan * DC Unasyn; continue vancomycin * Given the MRSA is sensitive to oral Clinda and Bactrim we will ask infectious disease to recommend whether patient can switch to oral antibiotic * Prepare for discharge tomorrow
[2017-06-14 09:03] LABS: ABSOLUTE BASOPHIL COUNT 0 /CUMM (0.0-0.2); ABSOLUTE EOSINOPHIL COUNT 0.4 /CUMM (0.0-0.7); ABSOLUTE GRANULOCYTE CT 3.7 /CUMM (1.4-6.5); ABSOLUTE LYMPH COUNT 1.9 /CUMM (1.2-3.4); ABSOLUTE MONOCYTE COUNT 0.5 /CUMM (0.10-0.60); BASOPHIL % 0.7 % (0.0-2.0); EOSINOPHIL % 5.7 % (0-5); HEMATOCRIT 36.2 % (37-47); MEAN CORPUSCULAR HGB 27.2 PG (27.0-31.0); MEAN CORPUSCULAR VOLUME 82.5 FL (81.0-99.0); MEAN PLATELET VOLUME 8.1 FL (7.4-10.4); PLATELET COUNT 268 /CUMM (130-400); RBC DISTRIBUTION WIDTH 14.2 % (11.5-14.5); RED BLOOD CELL CT 4.39 /CUMM (4.20-5.40); WHITE BLOOD CELL COUNT 6.5 /CUMM (4.8-10.8)
--- NOTE | 2017-06-14 11:00 | NUR ---
LATE ENTRY: PT ON SCHEDULED CLONAZEPAM BID. AM DOSE OFFERED BUT PT DECLINED. PT REPORTING SHE ONLY NEEDS TO TAKE CLONAZAEPAM AT NIGHT TO HELP HER SLEEP. DR. CONWAY NOTIFIED. PT HAS BEEN ALERT AND ORIENTED X3. PT ALSO CALM AND COOPERATIVE AT THIS TIME. WILL CONT TO MONITOR.
--- NOTE | 2017-06-14 11:42 | PN- Housestaff ---
Subjective Follow-up For: Labial cellulitis Complaints: no complaints Subjective: Have seen and examined the patient. The patient was resting comfortably in the bed. The patient says that pain is well managed with pain medications. Swelling and redness of the labial area has improved. She also stated that there is some very little drainage coming out of her incision and drainage site. She denies any shortness of breath palpitations or chest pain. Her lip swelling is resolved, there is no swelling of the tongue. Review of Systems Constitutional: Denies: chills, fever. EENTM: Reports: no symptoms. Cardiovascular: Denies: chest pain, palpitations. Respiratory: Denies: orthopnea, short of breath. Gastrointestinal: Denies: constipation, diarrhea, distention. Musculoskeletal: Reports: no symptoms. Objective Last 24 Hrs of Vital Signs/I&O Vital Signs Date Time Temp Pulse Resp B/P B/P Pulse O2 O2 Flow FiO2 Mean Ox Delivery Rate 06/14 0745 98.1 66 20 137/88 97 Room Air 06/13 2235 98.8 64 20 118/72 97 Room Air 06/13 1515 97.9 70 20 128/80 97 Room Air Intake & Output 06/14 1600 06/14 0800 06/14 0000 Intake Total 320 960 Output Total Balance 320 960 Intake, IV 200 240 Intake, Oral 120 720 Physical Exam General Appearance: Alert, Oriented X3, Cooperative Skin: No Rashes, No Breakdown HEENT: upper lip little swelling improving, Tongue is not swollen lower lip is normal. Neck: Supple Cardiovascular: Regular Rate, Normal S1, Normal S2 Lungs: Clear to Auscultation, Normal Air Movement Abdomen: Normal Bowel Sounds, Soft, No Tenderness Neurological: Normal Speech Extremities: No Tenderness/Swelling Rectal Labial region is erythematous, warm to touch. Open wound on L labia with minimal drainage of a yellow green discharge, erythema and swelling is improving Current Medications: Current Medications Sig/Chata Start time Last Medication Dose Route Stop Time Status Admin Ampicillin Sodium/ 3,000 MG Q6H 06/11 2100 AC 06/14 Sulbactam Sodium IV 0915 Sodium Chloride 100 ML Clonazepam 1 MG BID 06/13 1105 AC 06/13 PO 06/20 1104 2233 Clonazepam 1 MG QPM PRN 06/10 0445 DC PO 06/17 0444 Diphenhydramine HCl 25 MG Q6P PRN 06/12 1800 AC PO Divalproex Sodium 500 MG AT BEDTIME 06/13 2200 AC 06/13 PO 2233 Docusate Sodium 100 MG BID 06/10 1000 AC 06/14 PO 0923 Enoxaparin Sodium 40 MG DAILY 06/10 1000 AC 06/14 SC 0923 Escitalopram Oxalate 20 MG DAILY 06/10 1000 AC 06/14 PO 0922 Hydrocortisone 1 MARY BID 06/11 1104 AC 06/14 EXT 0923 Ibuprofen 600 MG Q6P PRN 06/10 0445 AC 06/12 PO 1725 Lactobacillus 1 CAP BID 06/11 2200 AC 06/14 Acidophilus PO 0922 Lamotrigine 50 MG AT BEDTIME 06/13 2200 AC 06/13 PO 2232 Methylphenidate HCl 10 MG TIDAC 06/13 1200 AC 06/14 PO 1246 Miconazole Nitrate 1 SUP AT BEDTIME 06/12 2200 AC 06/13 VAG 2233 Morphine Sulfate 2 MG Q4P PRN 06/10 0445 AC 06/13 IV 1924 Ondansetron HCl 4 MG Q6P PRN 06/10 0445 AC IV Oxycodone HCl 5 MG Q6H PRN 06/10 0445 AC 06/11 PO 1045 Patient Medication 1 ED .STK-MED ONE 06/13 1426 [place] Teaching ED 06/13 1427 Polyethylene Glycol 17 GM DAILY 06/14 1159 AC PO Senna 187 MG DAILY 06/10 1000 AC 06/14 PO 0923 Vancomycin HCl 2,000 MG Q12 06/13 2200 CAN Sodium Chloride 500 ML IV Vancomycin HCl 2,000 MG Q12 06/13 220 DC Sodium Chloride 250 ML IV Vancomycin HCl 2,000 MG Q12 06/13 2200 AC 06/14 Sodium Chloride 500 ML IV 1242 Vancomycin HCl 2,000 MG DAILY 06/10 1000 DC 06/13 Sodium Chloride 500 ML IV 1044 Last 24 Hrs of Lab/Kyle Results Last 24 Hrs of Labs/Mics: Laboratory Tests 06/14/17 0735: Anion Gap 9, Estimated GFR > 60, BUN/Creatinine Ratio 7.5, Total Bilirubin 0.2, Direct Bilirubin 0.1, AST 72 H, ALT 78 H, Alkaline Phosphatase 170 H, Total Protein 5.4 L, Albumin 3.4 L, CBC w Diff NO MAN DIFF REQ, RBC 4.39, MCV 82.5, MCH 27.2, RDW 14.2, MPV 8.1, Gran % 57.0, Lymphocytes % 29.0, Monocytes % 7.6, Eosinophils % 5.7 H, Basophils % 0.7, Absolute Granulocytes 3.7, Absolute Lymphocytes 1.9, Absolute Monocytes 0.5, Absolute Eosinophils 0.4, Absolute Basophils 0, PUBS MCHC 33.0 06/13/17 1620: CBC w Diff NO MAN DIFF REQ, RBC 4.03 L, MCV 82.7, MCH 27.5, RDW 14.1, MPV 8.3, Gran % 61.8, Lymphocytes % 25.7, Monocytes % 6.6, Eosinophils % 5.4 H, Basophils % 0.5, Absolute Granulocytes 3.6, Absolute Lymphocytes 1.5, Absolute Monocytes 0.4, Absolute Eosinophils 0.3, Absolute Basophils 0, PUBS MCHC 33.3, ESR Westergren 18, Random Vancomycin Cancelled Assessment/Plan Assessment: This is a 41-year-old female with past medical history significant for bipolar, anxiety, UC now no longer on Asacol, who comes in for chief complaint of worsening labial cellulitis. During admission patient was afebrile, not tachycardic, and without white count. Patient will be admitted to the general medicine floor for further workup and management of pelvic cellulitis. ED workup shows: Vitals: 98.9, 78, 14, 93/55, 96CBC: White count 10.3, hemoglobin 12.3, hematocrit 37.3, platelet 270. BEP: BUN 6, creatinine 0.8. No lactic acidosis, negative beta-hCG. LFT: AST 100, ALT 112, alkaline phosphatase 286. CT pelvis: Shows prominent lymph nodes and stranding in left lower quadrant abdominal wall and mons pubis and peroneal region. No evidence of soft tissue gas or bony abnormalities. PLAN Pelvic cellulitis: Patient has history of MRSA from previous abscesses. This is her second time with a labial abscess in the last [address] does not show evidence of gas in tissue. No crepitus on physical exam. Surgical consult placed in ED for evaluation. Additionally, in ED patient got cefazolin, and Bactrim DS. * labial genital culture swab showed MRSA, which is sensitive to oral Clinda and Bactrim * Follow up with ID to recommend whether patient can be switched to oral antibiotic * Continue Vancomycin 2 g every 12 day 5 * Vanco trough was not done. she had already recieved her 4th dose, random vanc level 28.2 * As per surgery will manage conservatively with antibiotics * ESR pending CRP 13H TSH 4.07N and Hb A1c 5.5N Vaginal candidiasis Patient is complaining of vaginal itchiness he has started her on miconazole suppository x7 day as per ID Day5 today Upper lip swelling- Improving ;suspected allergy likely due to food elements, detergent etc. Patient currently does not have any skin rash; other possibility includes a allergic reaction to medication such as antibiotics * Continue 1% hydrocortisone cream to the upper lip; * if lip swelling worsens patient should be given 40 mg of prednisone daily for 3 days. * If there is acute compromise with tongue swelling or respiratory distress patient may need IV Solu-Medrol, H2 blockers Skin itchiness--resolved Pt reported mild itchiness of her skin on arms yesterday which is believed to be from her sunburn, she can be given 12.5 mg Benadryl every 6 hours when necessary. Today she is symptom free. Transaminitis: Patient has AST 72 ALT 78 alkaline phosphatase 170 today. She has history of cholecystectomy. Denies any right upper quadrant pain. At this time etiology is currently unclear. She does endorse history of alcohol but she states that it is recreational and that she engages infrequently. LFT trends suggest fatty liver.Patient has negative hepatitis panel in 2016 . Bipolar/anxiety: Medication have been confirmed from pharmacy * Continue Lamictal 50 mg at bedtime * continue Depakote E5 100 MG at bedtime * continue Clonazepam 1 mg BID * continue Escitalopram 20 mg daily * Patient takes adderall XR which is not available at our pharmacy as per pharmacy recommendations we will continue Ritalin 10 mg 3 times a day Full code regular diet chemical DVT prophylaxis Problem List: 1. Abscess of left genital labia 2. Transaminitis 3. Abscess or cellulitis of perineum Pain Ratin Pain Location: left labia Pain Goal: Pain 4 or less Pain Plan: ibubrofen 600 q6 oxycodone 5 q6 morphine 2mg q4 Tomorrow's Labs & Rationales: denys bep
--- NOTE | 2017-06-14 12:00 | NUR ---
LATE ENTRY: PT HERE FOR CELLULITIS TO L LABIA D/T INFECTED INGROWN HAIR. PT S/P I&D IN ER. SMALL OPEN AREA PRESENT. EDEMA PRESENT TO OPEN AREA BUT IMPROVING PER PT REPORT. PT CURRENTLY ON IV ABX. MD BOWER AWARE. DRY DSG PLACED. WOUND RN KATY CONTACTED FOR POSSIBLE ASSESSMENT OF WOUND. PENDING WOUND EVAL NOTE. WILL CONT TO MONITOR.
--- NOTE | 2017-06-14 12:30 | NUR ---
LATE ENTRY: PT REPORTING CONSTIPATION. BS X4 QUADS. NO N/V. LBM THIS AM- PT REPORTS SMALL BM. IS ON COLACE BID AND SENNA DAILY. DR. CONWAY UPDATED. SNO FOR MIRALAX. PT EDUCATED. WILL CONT TO MONITOR.
--- NOTE | 2017-06-14 13:41 | PN- Infect Dx ---
Subjective Subjective: No fever. Persistent induration L labia/mons pubis. Decreased redness/ tenderness. Review of Systems Comments: 12 points reviewed as noted, otherwise negative. Objective Last 24 Hrs of Vital Signs/I&O Vital Signs Date Time Temp Pulse Resp B/P B/P Pulse O2 O2 Flow FiO2 Mean Ox Delivery Rate 06/14 0745 98.1 66 20 137/88 97 Room Air 06/13 2235 98.8 64 20 118/72 97 Room Air 06/13 1515 97.9 70 20 128/80 97 Room Air Intake & Output 06/14 1600 06/14 0800 06/14 0000 Intake Total 320 960 Output Total Balance 320 960 Intake, IV 200 240 Intake, Oral 120 720 Physical Exam Other Physical Findings: eneral Appearance Elevated BMI >32, Cooperative, No Acute Distress Skin patient's left labia has 0.5 cm open area with scant purulent drainage. L labia and mons pubis with improving erythemata/ decreased induration and tenderness. Fungal rask L inguinal area. HEENT Atraumatic, PERRLA, EOMI, Mucous Membr. moist/pink Neck Supple, No LAD Cardiovascular Regular Rate, Normal S1, Normal S2, No Murmur Lungs BS present no rales Abdomen Soft, No Tenderness Extremities No pedal Edema Neuro: Alert, Oriented X3, CN 2-12 wnl Results Last 24 Hours of Lab Results: Laboratory Tests 06/14 06/13 0735 1620 Chemistry Sodium (137 - 145 mmol/L) 140 Potassium (3.5 - 5.1 mmol/L) 4.4 Chloride (98 - 107 mmol/L) 104 Carbon Dioxide (22 - 30 mmol/L) 27 Anion Gap (5 - 16) 9 BUN (7 - 17 mg/dL) 6 L Creatinine (0.5 - 1.0 mg/dL) 0.8 Estimated GFR (>60 ml/min) > 60 BUN/Creatinine Ratio (7 - 25 %) 7.5 Total Bilirubin (0.2 - 1.3 mg/dL) 0.2 Direct Bilirubin (< 0.4 mg/dL) 0.1 AST (14 - 36 U/L) 72 H ALT (9 - 52 U/L) 78 H Alkaline Phosphatase (<127 U/L) 170 H Total Protein (6.3 - 8.2 g/dL) 5.4 L Albumin (3.5 - 5.0 g/dL) 3.4 L Hematology CBC w Diff NO MAN DIFF REQ NO MAN DIFF REQ WBC (4.8 - 10.8 /CUMM) 6.5 5.8 RBC (4.20 - 5.40 /CUMM) 4.39 4.03 L Hgb (12.0 - 16.0 G/DL) 11.9 L 11.1 L Hct (37 - 47 %) 36.2 L 33.3 L MCV (81.0 - 99.0 FL) 82.5 82.7 MCH (27.0 - 31.0 PG) 27.2 27.5 RDW (11.5 - 14.5 %) 14.2 14.1 Plt Count (130 - 400 /CUMM) 268 283 MPV (7.4 - 10.4 FL) 8.1 8.3 Gran % (42.2 - 75.2 %) 57.0 61.8 Lymphocytes % (20.5 - 51.1 %) 29.0 25.7 Monocytes % (1.7 - 9.3 %) 7.6 6.6 Eosinophils % (0 - 5 %) 5.7 H 5.4 H Basophils % (0.0 - 2.0 %) 0.7 0.5 Absolute Granulocytes (1.4 - 6.5 /CUMM) 3.7 3.6 Absolute Lymphocytes (1.2 - 3.4 /CUMM) 1.9 1.5 Absolute Monocytes (0.10 - 0.60 /CUMM) 0.5 0.4 Absolute Eosinophils (0.0 - 0.7 /CUMM) 0.4 0.3 Absolute Basophils (0.0 - 0.2 /CUMM) 0 0 PUBS MCHC (33.0 - 37.0 G/DL) 33.0 33.3 ESR Westergren (0 - 20 MM) 18 Toxicology Random Vancomycin Cancelled Last 24 Hours of Kyle Results: EC #: [id number] ARIEL: 06/12/17-1400 STATUS: RES RECD: 06/12/17-[address]: YANNI BARRAGAN,SAVITA SOURCE: GENITAL ENTR: 06/12/17-[address]: DESIRE BARRAGAN,DAYRON SPDESC: BALDO SCHWAB MD,TOY HARE MD, VERNELL ORDERED: GENITAL CULTURE Procedure Result > GENITAL CULTURE Preliminary 06/14/17-1152 Scant growth of METH RESIST STAPH AUREUS ISOLATED Called to/Readback by MARK by CALLUM 06/14/17 1150 1. METH RESIST STAPH AUREUS RX ABN ------ --- 1. 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 Labial abscess (preliminary cx + MRSA) H/O MRSA colonization Sx of vaginal candidiasis;miconazole suppos qhs x7 d. Suggestion: 1. D/c unasyn 3 gm q 6 h. 2. Continue iv vancomycin (15 mg/kg q 12 h). Obtain vanco trough 06/15 in am 30 min before the due dose; goal trough 10-15. 3. Local wound care.
[2017-06-14 14:56] VITALS: BP 128/81
[2017-06-14 23:39] VITALS: BP 130/80
--- NOTE | 2017-06-15 07:36 | Patient Discharge Instructions ---
Discharge Instructions General Discharge Information You were seen/treated for: LABIAL ABCESS/CELLULITIS Watch for these problems: Fever pulurent discharge from wound increasing pain and redness Special Instructions: please follow up with pcp Please finish ur antibiotic course Please take 1 tab of baby asprin for 21 days please apply hot compresses to area Diet Continue normal diet: Yes Activity Full Activity/No Limits: Yes Acute Coronary Syndrome Inclusion Criteria At DC or during hospital stay patient has or had the following: ACS DIAGNOSIS No Discharge Core Measures Meds if any: Prescribed or Continued at Discharge Meds if any: NOT Prescribed or Continued at Discharge Congestive Heart Failure Inclusion Criteria At DC or during hospital stay patient has or had the following: CHF DIAGNOSIS No Discharge Core Measures Meds if any: Prescribed or Continued at Discharge Meds if any: NOT Prescribed or Continued at Discharge Cerebrovascular accident Inclusion Criteria At DC or during hospital stay patient has or had the following: CVA/TIA Diagnosis No Discharge Core Measures Meds if any: Prescribed or Continued at Discharge Meds if any: NOT Prescribed or Continued at Discharge Venous thromboembolism Inclusion Criteria VTE Diagnosis No VTE Type NONE VTE Confirmed by (Test) NONE Discharge Core Measures - Per Current guidelines, there needs to be overlap - treatment for the first 5 days of Warfarin therapy. - If discharged on Warfarin prior to 5 days of - overlap therapy, the patient will need to be - assessed for post discharge needs including - *Post discharge parental anticoagulation - *Warfarin and/or parental anticoagulation education - *Follow up date to check INR post discharge At least 5 days overlap therapy as Inpatient No Meds if any: Prescribed or Continued at Discharge Note: Overlap Therapy is Warfarin and Anticoagulant Meds if any: NOT Prescribed or Continued at Discharge
--- NOTE | 2017-06-15 07:45 | PN- Housestaff ---
Subjective Follow-up For: Labial cellulitis Subjective: I have seen and examined the patient. The patient was sitting comfortably in the bed. She does not have any current complaints. Her pain is also well managed. She believes that her labial abscess site is better. The swelling and redness has decreased. There is very little drainage coming from the incision site. But it is still very hard. She denies any shortness of breath fever or palpitations. Review of Systems Constitutional: Denies: fever, malaise, weakness. Cardiovascular: Denies: chest pain, edema, palpitations. Respiratory: Denies: short of breath, sputum production, stridor. Gastrointestinal: Reports: no symptoms. Objective Last 24 Hrs of Vital Signs/I&O Vital Signs Date Time Temp Pulse Resp B/P B/P Pulse O2 O2 Flow FiO2 Mean Ox Delivery Rate 06/15 1429 97.3 73 18 128/80 99 Room Air 06/15 0751 98.7 81 20 124/66 96 Room Air 06/14 2339 98.3 76 20 130/80 98 Intake & Output 06/15 1600 06/15 0800 06/15 0000 Intake Total 250 780 Output Total Balance 250 780 Intake, IV 250 300 Intake, Oral 480 Patient 243 lb Weight Physical Exam General Appearance: Alert, Oriented X3, Cooperative, No Acute Distress Neck: Supple Cardiovascular: Normal S1, Normal S2, No Murmurs Lungs: Clear to Auscultation, Normal Air Movement Abdomen: Normal Bowel Sounds, Soft, No Tenderness Neurological: Normal Speech Extremities: No Tenderness/Swelling Breasts: rash under the breast Pelvic (FEMALE) Labial region is erythematous, warm to touch. Open wound on L labia with minimal drainage of a yellow green discharge, erythema and swelling is improving Current Medications: Current Medications Sig/Chata Start time Last Medication Dose Route Stop Time Status Admin Ampicillin Sodium/ 3,000 MG Q6H 06/11 2100 DC 06/14 Sulbactam Sodium IV 0915 Sodium Chloride 100 ML Clonazepam 1 MG BID 06/13 1105 AC 06/14 PO 06/20 1104 2210 Diphenhydramine HCl 25 MG Q6P PRN 06/12 1800 AC PO Divalproex Sodium 500 MG AT BEDTIME 06/13 2200 AC 06/14 PO 2210 Docusate Sodium 100 MG BID 06/10 1000 AC 06/15 PO 0902 Enoxaparin Sodium 40 MG DAILY 06/10 1000 AC 06/15 SC 0903 Escitalopram Oxalate 20 MG DAILY 06/10 1000 AC 06/15 PO 0902 Hydrocortisone 1 MARY BID 06/11 1104 AC 06/15 EXT 0909 Ibuprofen 600 MG Q6P PRN 06/10 0445 AC 06/12 PO 1725 Lactobacillus 1 CAP BID 06/11 2200 AC 06/15 Acidophilus PO 0902 Lamotrigine 50 MG AT BEDTIME 06/13 2200 AC 06/14 PO 2210 Methylphenidate HCl 10 MG TIDAC 06/13 1200 AC 06/15 PO 1316 Miconazole Nitrate 1 SUP AT BEDTIME 06/12 2200 AC 06/14 VAG 2210 Morphine Sulfate 2 MG Q4P PRN 06/10 0445 AC 06/14 IV 1650 Nystatin 1 MARY BID 06/15 1146 AC TOP Ondansetron HCl 4 MG Q6P PRN 06/10 0445 AC IV Oxycodone HCl 5 MG Q6H PRN 06/10 0445 AC 06/14 PO 2209 Patient Medication 1 ED .STK-MED ONE 06/15 1411 [place] Teaching ED 06/15 1412 Polyethylene Glycol 17 GM DAILY 06/14 1159 AC 06/15 PO 0903 Senna 187 MG DAILY 06/10 1000 AC 06/15 PO 0902 Vancomycin HCl 2,000 MG Q12 06/13 220 AC 06/15 Sodium Chloride 500 ML IV 1030 Last 24 Hrs of Lab/Kyle Results Last 24 Hrs of Labs/Mics: Laboratory Tests 06/15/17 0935: GGT 103 H, Vancomycin Trough 13.8 06/15/17 0710: Anion Gap 8, Estimated GFR > 60, BUN/Creatinine Ratio 14.3, Total Bilirubin 0.2, Direct Bilirubin 0.1, AST 74 H, ALT 91 H, Alkaline Phosphatase 143 H, Total Protein 5.5 L, Albumin 3.5, CBC w Diff NO MAN DIFF REQ, RBC 4.23, MCV 82.5, MCH 27.6, RDW 14.3, MPV 7.8, Gran % 52.6, Lymphocytes % 33.7, Monocytes % 7.9, Eosinophils % 5.0, Basophils % 0.8, Absolute Granulocytes 3.4, Absolute Lymphocytes 2.2, Absolute Monocytes 0.5, Absolute Eosinophils 0.3, Absolute Basophils 0.1, PUBS MCHC 33.5 Assessment/Plan Assessment: This is a 41-year-old female with past medical history significant for bipolar, anxiety, UC now no longer on Asacol, who comes in for chief complaint of worsening labial cellulitis. During admission patient was afebrile, not tachycardic, and without white count. Patient will be admitted to the general medicine floor for further workup and management of pelvic cellulitis. ED workup shows: Vitals: 98.9, 78, 14, 93/55, 96CBC: White count 10.3, hemoglobin 12.3, hematocrit 37.3, platelet 270. BEP: BUN 6, creatinine 0.8. No lactic acidosis, negative beta-hCG. LFT: AST 100, ALT 112, alkaline phosphatase 286. CT pelvis: Shows prominent lymph nodes and stranding in left lower quadrant abdominal wall and mons pubis and peroneal region. No evidence of soft tissue gas or bony abnormalities. PLAN Pelvic cellulitis: Patient has history of MRSA from previous abscesses. This is her second time with a labial abscess in the last [address] does not show evidence of gas in tissue. No crepitus on physical exam. Surgical consult placed in ED for evaluation. Additionally, in ED patient got cefazolin, and Bactrim DS. * labial genital culture swab showed MRSA, which is sensitive to oral Clinda and Bactrim * Continue Vancomycin 2 g every 12 day 4 * Vanco trough was not done previously she had already recieved her 4th dose, random vanc level 28.2. We ordered another VAnc troph as per ID it was 13.8 with the goal being 10-15. * As per surgery will manage conservatively with antibiotics * ESR 18N CRP 13H TSH 4.07N and Hb A1c 5.5N * We are awaiting ID recommendations for switching to oral antibiotics Vaginal candidiasis Patient is complaining of vaginal itchiness he has started her on miconazole suppository x7 day as per ID Day4 today Rash Patient has developed rash to her both breasts likely secondary to antibiotic use * Nystatin powder Upper lip swelling-Resolved ;suspected allergy likely due to food elements, detergent etc. Patient currently does not have any skin rash; other possibility includes a allergic reaction to medication such as antibiotics * Continue 1% hydrocortisone cream to the upper lip; * if lip swelling worsens patient should be given 40 mg of prednisone daily for 3 days. * If there is acute compromise with tongue swelling or respiratory distress patient may need IV Solu-Medrol, H2 blockers Skin itchiness--resolved Pt reported mild itchiness of her skin on arms yesterday which is believed to be from her sunburn, she can be given 12.5 mg Benadryl every 6 hours when necessary. Today she is symptom free. Transaminitis: Patient has AST ALT are trending up. She has history of cholecystectomy. Denies any right upper quadrant pain. At this time etiology is currently unclear. She does endorse history of alcohol but she states that it is recreational and that she engages infrequently. Patient has negative hepatitis panel in 2016 . Bipolar/anxiety: Medication have been confirmed from pharmacy * Continue Lamictal 50 mg at bedtime * continue Depakote E5 100 MG at bedtime * continue Clonazepam 1 mg BID * continue Escitalopram 20 mg daily * Patient takes adderall XR which is not available at our pharmacy as per pharmacy recommendations we will continue Ritalin 10 mg 3 times a day Full code regular diet chemical DVT prophylaxis Problem List: 1. Abscess of pelvis Pain Ratin Pain Location: left labia Pain Goal: Pain 4 or less Pain Plan: ibubrofen 600 q6 oxycodone 5 q6 morphine 2mg q4 Tomorrow's Labs & Rationales: lfts
[2017-06-15 07:51] VITALS: BP 124/66
[2017-06-15 08:34] LABS: ABSOLUTE BASOPHIL COUNT 0.1 /CUMM (0.0-0.2); ABSOLUTE EOSINOPHIL COUNT 0.3 /CUMM (0.0-0.7); ABSOLUTE GRANULOCYTE CT 3.4 /CUMM (1.4-6.5); ABSOLUTE LYMPH COUNT 2.2 /CUMM (1.2-3.4); ABSOLUTE MONOCYTE COUNT 0.5 /CUMM (0.10-0.60); BASOPHIL % 0.8 % (0.0-2.0); GRANULOCYTE % 52.6 % (42.2-75.2); HEMATOCRIT 34.9 % (37-47); MEAN CORPUSCULAR HGB 27.6 PG (27.0-31.0); MEAN CORPUSCULAR HGB CONC 33.5 G/DL (33.0-37.0); MEAN CORPUSCULAR VOLUME 82.5 FL (81.0-99.0); MEAN PLATELET VOLUME 7.8 FL (7.4-10.4); PLATELET COUNT 266 /CUMM (130-400); RBC DISTRIBUTION WIDTH 14.3 % (11.5-14.5); RED BLOOD CELL CT 4.23 /CUMM (4.20-5.40); WHITE BLOOD CELL COUNT 6.4 /CUMM (4.8-10.8)
--- NOTE | 2017-06-15 10:42 | PN- Att Addend ---
Attending Addendum Attending Brief Note Patient seen and examined. Plan of care discussed with the medical team and the patient. Available lab work and radiology test reports were reviewed. Patient appears comfortable she is lying in bed without any distress. She reports her pain is well controlled. She denies any recent fever chills nausea vomiting or abdominal pain. Denies any difficulty breathing. Patient does not report any drainage from abscess at this point. She complains of a in duration at the labial site. Vital Signs Date Time Temp Pulse Resp B/P B/P Pulse O2 O2 Flow FiO2 Mean Ox Delivery Rate 06/15 0751 98.7 81 20 124/66 96 Room Air 06/14 2339 98.3 76 20 130/80 98 06/14 1456 98.6 81 20 128/81 94 Room Air Intake & Output 06/15 1600 06/15 0800 06/15 0000 Intake Total 250 780 Output Total Balance 250 780 Intake, IV 250 300 Intake, Oral 480 Exam: General: Patient awake alert oriented without any distress CVS: S1 plus S2 without any murmur or gallops Chest: Few scattered crepitation without any wheeze. There is no respiratory distress. Abdomen: Soft nontender, bowel sound present, no guarding or rebound TRANSPORTATION DESIGN ENGINEER: Awake alert oriented without any focal neuro deficit and follows command appropriately Extremities: No edema; no clubbing or cyanosis noted ENT: Upper lip normal ; tongue is not swollen lower lip is normal. Laboratory Tests 06/15 06/15 0935 0710 Chemistry Sodium (137 - 145 mmol/L) 140 Potassium (3.5 - 5.1 mmol/L) 4.1 Chloride (98 - 107 mmol/L) 104 Carbon Dioxide (22 - 30 mmol/L) 28 Anion Gap (5 - 16) 8 BUN (7 - 17 mg/dL) 10 Creatinine (0.5 - 1.0 mg/dL) 0.7 Estimated GFR (>60 ml/min) > 60 BUN/Creatinine Ratio (7 - 25 %) 14.3 Total Bilirubin (0.2 - 1.3 mg/dL) 0.2 Direct Bilirubin (< 0.4 mg/dL) 0.1 GGT (12 - 43 U/L) Pending AST (14 - 36 U/L) 74 H ALT (9 - 52 U/L) 91 H Alkaline Phosphatase (<127 U/L) 143 H Total Protein (6.3 - 8.2 g/dL) 5.5 L Albumin (3.5 - 5.0 g/dL) 3.5 Hematology CBC w Diff NO MAN DIFF REQ WBC (4.8 - 10.8 /CUMM) 6.4 RBC (4.20 - 5.40 /CUMM) 4.23 Hgb (12.0 - 16.0 G/DL) 11.7 L Hct (37 - 47 %) 34.9 L MCV (81.0 - 99.0 FL) 82.5 MCH (27.0 - 31.0 PG) 27.6 RDW (11.5 - 14.5 %) 14.3 Plt Count (130 - 400 /CUMM) 266 MPV (7.4 - 10.4 FL) 7.8 Gran % (42.2 - 75.2 %) 52.6 Lymphocytes % (20.5 - 51.1 %) 33.7 Monocytes % (1.7 - 9.3 %) 7.9 Eosinophils % (0 - 5 %) 5.0 Basophils % (0.0 - 2.0 %) 0.8 Absolute Granulocytes (1.4 - 6.5 /CUMM) 3.4 Absolute Lymphocytes (1.2 - 3.4 /CUMM) 2.2 Absolute Monocytes (0.10 - 0.60 /CUMM) 0.5 Absolute Eosinophils (0.0 - 0.7 /CUMM) 0.3 Absolute Basophils (0.0 - 0.2 /CUMM) 0.1 PUBS MCHC (33.0 - 37.0 G/DL) 33.5 Toxicology Vancomycin Trough (10.0 - 20.0 ug/mL) 13.8 Culture from the abscess site is growing MRSA sensitive to doxycycline and clindamycin and Bactrim Assessment * Labial cellulitis/abscess status post I&D- patient seen by surgery. No further surgical intervention is needed at this time. Cultures grew MRSA * History of bipolar disorder and anxiety * Elevated liver enzyme likely fatty liver * Upper lip swelling- now improved. Suspected allergy likely due to food elements; patient currently does not have any skin rash; doubt allergic reaction to medication such as antibiotics Plan * continue vancomycin * Given the MRSA is sensitive to oral Clinda and Bactrim we will ask infectious disease to recommend whether patient can switch to oral antibiotic * Prepare for discharge tomorrow
--- NOTE | 2017-06-15 14:15 | NUR ---
wound care: discussed poc with RN - he stated pt is requesting to independently perform dressing changes f/u with surgical staff please
[2017-06-15 14:29] VITALS: BP 128/80
--- NOTE | 2017-06-15 18:12 | PN- Infect Dx ---
Subjective Subjective: Clinically improving; c/o rash under her breasts. Persistent tenderness L labia, although improved; decrease redness and swelling. Denies diarrhea. Review of Systems Comments: 12 points reviewed as noted, otherwise negative. Objective Last 24 Hrs of Vital Signs/I&O Vital Signs Date Time Temp Pulse Resp B/P B/P Pulse O2 O2 Flow FiO2 Mean Ox Delivery Rate 06/15 1429 97.3 73 18 128/80 99 Room Air 06/15 0751 98.7 81 20 124/66 96 Room Air 06/14 2339 98.3 76 20 130/80 98 Intake & Output 06/15 1600 06/15 0800 06/15 0000 Intake Total 250 780 Output Total Balance 250 780 Intake, IV 250 300 Intake, Oral 480 Patient 243 lb Weight Physical Exam Other Physical Findings: General Appearance Elevated BMI >32, Cooperative, No Acute Distress Skin patient's left labia has 0.25 cm open area with scant drainage. L labia and mons pubis with improved erythemata/ decreased induration and tenderness. HEENT Atraumatic, PERRLA, EOMI, Mucous Membr. moist/pink Neck Supple, No LAD Cardiovascular Regular Rate, Normal S1, Normal S2, No Murmur Lungs BS present no rales Abdomen Soft, No Tenderness Extremities No pedal Edema Neuro: Alert, Oriented X3, CN 2-12 wnl Results Last 24 Hours of Lab Results: Laboratory Tests 06/15 06/15 0935 0710 Chemistry Sodium (137 - 145 mmol/L) 140 Potassium (3.5 - 5.1 mmol/L) 4.1 Chloride (98 - 107 mmol/L) 104 Carbon Dioxide (22 - 30 mmol/L) 28 Anion Gap (5 - 16) 8 BUN (7 - 17 mg/dL) 10 Creatinine (0.5 - 1.0 mg/dL) 0.7 Estimated GFR (>60 ml/min) > 60 BUN/Creatinine Ratio (7 - 25 %) 14.3 Total Bilirubin (0.2 - 1.3 mg/dL) 0.2 Direct Bilirubin (< 0.4 mg/dL) 0.1 GGT (12 - 43 U/L) 103 H AST (14 - 36 U/L) 74 H ALT (9 - 52 U/L) 91 H Alkaline Phosphatase (<127 U/L) 143 H Total Protein (6.3 - 8.2 g/dL) 5.5 L Albumin (3.5 - 5.0 g/dL) 3.5 Hematology CBC w Diff NO MAN DIFF REQ WBC (4.8 - 10.8 /CUMM) 6.4 RBC (4.20 - 5.40 /CUMM) 4.23 Hgb (12.0 - 16.0 G/DL) 11.7 L Hct (37 - 47 %) 34.9 L MCV (81.0 - 99.0 FL) 82.5 MCH (27.0 - 31.0 PG) 27.6 RDW (11.5 - 14.5 %) 14.3 Plt Count (130 - 400 /CUMM) 266 MPV (7.4 - 10.4 FL) 7.8 Gran % (42.2 - 75.2 %) 52.6 Lymphocytes % (20.5 - 51.1 %) 33.7 Monocytes % (1.7 - 9.3 %) 7.9 Eosinophils % (0 - 5 %) 5.0 Basophils % (0.0 - 2.0 %) 0.8 Absolute Granulocytes (1.4 - 6.5 /CUMM) 3.4 Absolute Lymphocytes (1.2 - 3.4 /CUMM) 2.2 Absolute Monocytes (0.10 - 0.60 /CUMM) 0.5 Absolute Eosinophils (0.0 - 0.7 /CUMM) 0.3 Absolute Basophils (0.0 - 0.2 /CUMM) 0.1 PUBS MCHC (33.0 - 37.0 G/DL) 33.5 Toxicology Vancomycin Trough (10.0 - 20.0 ug/mL) 13.8 Last 24 Hours of Kyle Results: Reviewed. Recent Imaging Studies: Reviewed. 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 Labial abscess (preliminary cx + MRSA); clinically improving slowly; vancomycin trough therapeutic H/O MRSA colonization Tinea corporis; topical Nystatin powder x 14-21 d Suggestion: 1. Continue iv vancomycin (15 mg/kg q 12 h; goal trough 10-15) started 06/13/17 ( D#3/7); followed by oral Bactrim as OP in order to complete 14 d treatment. 2. Patient at this time refuses PICC line. 3. Local wound care.
[2017-06-15 23:50] VITALS: BP 111/67
[2017-06-16 07:43] VITALS: BP 100/50
[2017-06-16] MEDS ORDERED: MICONAZOLE NIT100 MG VAG (07:52)
[2017-06-16] MEDS ORDERED: BACTRIM DS TAB1 EACH PO (07:54)
[2017-06-16 08:20] LABS: ABSOLUTE BASOPHIL COUNT 0.1 /CUMM (0.0-0.2); ABSOLUTE EOSINOPHIL COUNT 0.4 /CUMM (0.0-0.7); ABSOLUTE GRANULOCYTE CT 3.5 /CUMM (1.4-6.5); ABSOLUTE LYMPH COUNT 2.4 /CUMM (1.2-3.4); ABSOLUTE MONOCYTE COUNT 0.5 /CUMM (0.10-0.60); BASOPHIL % 0.8 % (0.0-2.0); EOSINOPHIL % 5.3 % (0-5); GRANULOCYTE % 51.8 % (42.2-75.2); HEMATOCRIT 36.6 % (37-47); MEAN CORPUSCULAR HGB 27.1 PG (27.0-31.0); MEAN CORPUSCULAR HGB CONC 32.9 G/DL (33.0-37.0); MEAN CORPUSCULAR VOLUME 82.3 FL (81.0-99.0); MEAN PLATELET VOLUME 7.8 FL (7.4-10.4); PLATELET COUNT 268 /CUMM (130-400); RBC DISTRIBUTION WIDTH 14.2 % (11.5-14.5); RED BLOOD CELL CT 4.45 /CUMM (4.20-5.40); WHITE BLOOD CELL COUNT 6.8 /CUMM (4.8-10.8)
--- NOTE | 2017-06-16 08:23 | PN- Att Addend ---
Attending Addendum Attending Brief Note Patient seen and examined. Plan of care discussed with the medical team and the patient. Available lab work and radiology test reports were reviewed. Patient appears comfortable she is lying in bed without any distress. She reports her pain is well controlled. She denies any recent fever chills nausea vomiting or abdominal pain. Denies any difficulty breathing. Patient does not report any drainage from abscess at this point. She complains of induration at the labial site. Vital Signs Date Time Temp Pulse Resp B/P B/P Pulse O2 O2 Flow FiO2 Mean Ox Delivery Rate 06/16 0743 98.0 81 18 100/50 95 Room Air 06/15 2350 98.0 70 20 111/67 99 Room Air 06/15 1429 97.3 73 18 128/80 99 Room Air Intake & Output 06/16 1600 06/16 0800 06/16 0000 Intake Total 480 1030 Output Total Balance 480 1030 Intake, IV 550 Intake, Oral 480 480 Exam: General: Patient awake alert oriented without any distress CVS: S1 plus S2 without any murmur or gallops Chest: Few scattered crepitation without any wheeze. There is no respiratory distress. Abdomen: Soft nontender, bowel sound present, no guarding or rebound MANAGER BANQUET: Awake alert oriented without any focal neuro deficit and follows command appropriately Extremities: No edema; no clubbing or cyanosis noted ENT: Upper lip normal ; tongue is not swollen lower lip is normal. Laboratory Tests 06/16 0650 Chemistry Total Bilirubin (0.2 - 1.3 mg/dL) 0.3 Direct Bilirubin (< 0.4 mg/dL) 0.2 AST (14 - 36 U/L) 59 H ALT (9 - 52 U/L) 80 H Alkaline Phosphatase (<127 U/L) 125 Total Protein (6.3 - 8.2 g/dL) 5.6 L Albumin (3.5 - 5.0 g/dL) 3.5 Hematology CBC w Diff NO MAN DIFF REQ WBC (4.8 - 10.8 /CUMM) 6.8 RBC (4.20 - 5.40 /CUMM) 4.45 Hgb (12.0 - 16.0 G/DL) 12.0 Hct (37 - 47 %) 36.6 L MCV (81.0 - 99.0 FL) 82.3 MCH (27.0 - 31.0 PG) 27.1 RDW (11.5 - 14.5 %) 14.2 Plt Count (130 - 400 /CUMM) 268 MPV (7.4 - 10.4 FL) 7.8 Gran % (42.2 - 75.2 %) 51.8 Lymphocytes % (20.5 - 51.1 %) 35.0 Monocytes % (1.7 - 9.3 %) 7.1 Eosinophils % (0 - 5 %) 5.3 H Basophils % (0.0 - 2.0 %) 0.8 Absolute Granulocytes (1.4 - 6.5 /CUMM) 3.5 Absolute Lymphocytes (1.2 - 3.4 /CUMM) 2.4 Absolute Monocytes (0.10 - 0.60 /CUMM) 0.5 Absolute Eosinophils (0.0 - 0.7 /CUMM) 0.4 Absolute Basophils (0.0 - 0.2 /CUMM) 0.1 PUBS MCHC (33.0 - 37.0 G/DL) 32.9 L Assessment * Labial cellulitis/abscess status post I&D- patient seen by surgery. No further surgical intervention is needed at this time. Cultures grew MRSA * History of bipolar disorder and anxiety * Elevated liver enzyme likely fatty liver * Upper lip swelling- now improved. Suspected allergy likely due to food elements; patient currently does not have any skin rash; doubt allergic reaction to medication such as antibiotics Plan * Discuss with Carole Vargas MD over the phone today. There is persistent concern for large area of induration. Therefore plan is to continue IV vancomycin over this weekend with possible switch to oral antibiotics on Monday. * Daily dressing * No need for daily lab unless clinical status changes
--- NOTE | 2017-06-16 08:53 | PN- Housestaff ---
Subjective Follow-up For: labial abcess Subjective: I have seen and examined the patient. Patient was sleeping in the bed patient. We woke her up. She says that she is doing well. She does not have any current complaint. She is ambulating and using the bathroom independently. She says pain is well controlled with the pain medication. Javi Beavers MD explained to her that she will be staying with us over the weekend to continue IV vancomycin. There were no overnight acute events. The patient denies any fever or shortness of breath chest pain and palpitations. Review of Systems Constitutional: Denies: chills, diaphoresis, fever. Cardiovascular: Denies: chest pain, orthopena, palpitations. Respiratory: Denies: cough, hemoptysis. Gastrointestinal: Reports: no symptoms. Denies: diarrhea, bowel incontinence, melena. Genitourinary: Reports: no symptoms. Musculoskeletal: Reports: no symptoms. Objective Last 24 Hrs of Vital Signs/I&O Vital Signs Date Time Temp Pulse Resp B/P B/P Pulse O2 O2 Flow FiO2 Mean Ox Delivery Rate 06/16 0743 98.0 81 18 100/50 95 Room Air 06/15 2350 98.0 70 20 111/67 99 Room Air 06/15 1429 97.3 73 18 128/80 99 Room Air Intake & Output 06/16 1600 06/16 0800 06/16 0000 Intake Total 480 1030 Output Total Balance 480 1030 Intake, IV 550 Intake, Oral 480 480 Physical Exam General Appearance: Alert, Oriented X3, Cooperative, No Acute Distress Skin: No Rashes, No Breakdown HEENT: Atraumatic Neck: Supple Cardiovascular: Normal S1, Normal S2, No Murmurs Lungs: Clear to Auscultation, Normal Air Movement Abdomen: Normal Bowel Sounds, Soft, No Tenderness Neurological: Normal Gait Extremities: No Tenderness/Swelling Breasts: rash under breast Pelvic (FEMALE) No Discharge, improving erythema and swelling, area is still hard there is no discharge from the incision site Current Medications: Current Medications Sig/Chata Start time Last Medication Dose Route Stop Time Status Admin Clonazepam 1 MG BID 06/13 1105 AC 06/15 PO 06/20 1104 2210 Diphenhydramine HCl 25 MG Q6P PRN 06/12 1800 AC PO Divalproex Sodium 500 MG AT BEDTIME 06/13 220 AC 06/15 PO 2209 Docusate Sodium 100 MG BID 06/10 1000 AC 06/16 PO 0932 Enoxaparin Sodium 40 MG DAILY 06/10 1000 AC 06/16 SC 0933 Escitalopram Oxalate 20 MG DAILY 06/10 1000 AC 06/16 PO 0932 Hydrocortisone 1 MARY BID 06/11 1104 AC 06/16 EXT 0933 Ibuprofen 600 MG Q6P PRN 06/10 0445 AC 06/12 PO 1725 Lactobacillus 1 CAP BID 06/11 2200 AC 06/16 Acidophilus PO 0933 Lamotrigine 50 MG AT BEDTIME 06/13 2200 AC 06/15 PO 2210 Methylphenidate HCl 10 MG TIDAC 06/13 1200 AC 06/16 PO 0931 Miconazole Nitrate 1 SUP AT BEDTIME 06/12 220 AC 06/15 VAG 2212 Morphine Sulfate 2 MG Q4P PRN 06/10 0445 AC 06/15 IV 2211 Nystatin 1 MARY BID 06/15 1146 AC 06/16 TOP 0933 Ondansetron HCl 4 MG Q6P PRN 06/10 0445 AC IV Oxycodone HCl 5 MG Q6H PRN 06/10 0445 AC 06/14 PO 2209 Patient Medication 1 ED .STK-MED ONE 06/15 1411 PR Teaching ED 06/15 1412 Polyethylene Glycol 17 GM DAILY 06/14 1159 AC 06/16 PO 0942 Senna 187 MG DAILY 06/10 1000 AC 06/16 PO 0933 Vancomycin HCl 2,000 MG Q12 06/13 220 AC 06/16 Sodium Chloride 500 ML IV 0932 Last 24 Hrs of Lab/Kyle Results Last 24 Hrs of Labs/Mics: Laboratory Tests 06/16/17 0650: Total Bilirubin 0.3, Direct Bilirubin 0.2, AST 59 H, ALT 80 H, Alkaline Phosphatase 125, Total Protein 5.6 L, Albumin 3.5, CBC w Diff NO MAN DIFF REQ, RBC 4.45, MCV 82.3, MCH 27.1, RDW 14.2, MPV 7.8, Gran % 51.8, Lymphocytes % 35.0 , Monocytes % 7.1, Eosinophils % 5.3 H, Basophils % 0.8, Absolute Granulocytes 3.5, Absolute Lymphocytes 2.4, Absolute Monocytes 0.5, Absolute Eosinophils 0.4, Absolute Basophils 0.1, PUBS MCHC 32.9 L Assessment/Plan Assessment: This is a 41-year-old female with past medical history significant for bipolar, anxiety, UC now no longer on Asacol, who comes in for chief complaint of worsening labial cellulitis. During admission patient was afebrile, not tachycardic, and without white count. Patient will be admitted to the general medicine floor for further workup and management of pelvic cellulitis. ED workup shows: Vitals: 98.9, 78, 14, 93/55, 96CBC: White count 10.3, hemoglobin 12.3, hematocrit 37.3, platelet 270. BEP: BUN 6, creatinine 0.8. No lactic acidosis, negative beta-hCG. LFT: AST 100, ALT 112, alkaline phosphatase 286. CT pelvis: Shows prominent lymph nodes and stranding in left lower quadrant abdominal wall and mons pubis and peroneal region. No evidence of soft tissue gas or bony abnormalities. PLAN Pelvic cellulitis: Patient has history of MRSA from previous abscesses. This is her second time with a labial abscess in the last [address] does not show evidence of gas in tissue. No crepitus on physical exam. Surgical consult placed in ED for evaluation. Additionally, in ED patient got cefazolin, and Bactrim DS. * labial genital culture swab showed MRSA, which is sensitive to oral Clinda and Bactrim * Continue Vancomycin 2 g every 12 day 4 * VAnc trough was therapeutic 13.8 with the goal being 10-15. * As per surgery will manage conservatively with antibiotics * ESR 18N CRP 13H TSH 4.07N and Hb A1c 5.5N * Javi Beavers MD talked to Carole Vargas MD on the phone during rounds. The current plan as patient is going to continue on IV vancomycin. We are not going to switch to oral antibiotics. Patient has refused the PICC line. Vaginal candidiasis Patient is complaining of vaginal itchiness he has started her on miconazole suppository x7 day as per ID Day5 today Rash Patient has developed rash to her both breasts likely secondary to antibiotic use * Nystatin powder Upper lip swelling-Resolved ;suspected allergy likely due to food elements, detergent etc. Patient currently does not have any skin rash; other possibility includes a allergic reaction to medication such as antibiotics * Continue 1% hydrocortisone cream to the upper lip; * if lip swelling worsens patient should be given 40 mg of prednisone daily for 3 days. * If there is acute compromise with tongue swelling or respiratory distress patient may need IV Solu-Medrol, H2 blockers Skin itchiness--resolved Pt reported mild itchiness of her skin on arms yesterday which is believed to be from her sunburn, she can be given 12.5 mg Benadryl every 6 hours when necessary. Today she is symptom free. Transaminitis: Patient AST ALT were trending up. She has history of cholecystectomy. Denies any right upper quadrant pain. At this time etiology is currently unclear. She does endorse history of alcohol but she states that it is recreational and that she engages infrequently. Patient has negative hepatitis panel in 2016 . Today AST is 59 and ALT is 80 there are trending down. Transaminitis is likely due to infectious process going on in the body. Bipolar/anxiety: Medication have been confirmed from pharmacy * Continue Lamictal 50 mg at bedtime * continue Depakote E5 100 MG at bedtime * continue Clonazepam 1 mg BID * continue Escitalopram 20 mg daily * Patient takes adderall XR which is not available at our pharmacy as per pharmacy recommendations we will continue Ritalin 10 mg 3 times a day Full code regular diet chemical DVT prophylaxis Problem List: 1. Abscess 2. Pelvic cellulitis 3. Abscess of left genital labia Pain Ratin Pain Location: eft labia Pain Goal: Pain 4 or less Pain Plan: ibubrofen 600 q6 oxycodone 5 q6 morphine 2mg q4 Tomorrow's Labs & Rationales: cbc bep
[2017-06-16 15:19] VITALS: BP 122/64
--- NOTE | 2017-06-16 16:03 | PN- Infect Dx ---
Subjective Subjective: Patient feeling better; decreased tenderness L labia. Scant drainage. No fever. Review of Systems Comments: 12 points reviewed as noted, otherwise negative. Objective Last 24 Hrs of Vital Signs/I&O Vital Signs Date Time Temp Pulse Resp B/P B/P Pulse O2 O2 Flow FiO2 Mean Ox Delivery Rate 06/16 1519 98.0 86 18 122/64 97 Room Air 06/16 0743 98.0 81 18 100/50 95 Room Air 06/15 2350 98.0 70 20 111/67 99 Room Air Intake & Output 06/16 1600 06/16 0800 06/16 0000 Intake Total 480 1030 Output Total Balance 480 1030 Intake, IV 550 Intake, Oral 480 480 Physical Exam Other Physical Findings: General Appearance Elevated BMI, Cooperative, No Acute Distress Skin patient's left labia has 0.2 cm open area with scant drainage. L labia and mons pubis with resolved erythema/ peristent induration around the incision site ; no fluctuence. HEENT Atraumatic, PERRLA, EOMI, Mucous Membr. moist/pink Neck Supple, No LAD Cardiovascular Regular Rate, Normal S1, Normal S2, No Murmur Lungs BS present no rales Abdomen Soft, No Tenderness Extremities No pedal Edema Neuro: Alert, Oriented X3, CN 2-12 wnl Results Last 24 Hours of Lab Results: Laboratory Tests 06/16 0650 Chemistry Total Bilirubin (0.2 - 1.3 mg/dL) 0.3 Direct Bilirubin (< 0.4 mg/dL) 0.2 AST (14 - 36 U/L) 59 H ALT (9 - 52 U/L) 80 H Alkaline Phosphatase (<127 U/L) 125 Total Protein (6.3 - 8.2 g/dL) 5.6 L Albumin (3.5 - 5.0 g/dL) 3.5 Hematology CBC w Diff NO MAN DIFF REQ WBC (4.8 - 10.8 /CUMM) 6.8 RBC (4.20 - 5.40 /CUMM) 4.45 Hgb (12.0 - 16.0 G/DL) 12.0 Hct (37 - 47 %) 36.6 L MCV (81.0 - 99.0 FL) 82.3 MCH (27.0 - 31.0 PG) 27.1 RDW (11.5 - 14.5 %) 14.2 Plt Count (130 - 400 /CUMM) 268 MPV (7.4 - 10.4 FL) 7.8 Gran % (42.2 - 75.2 %) 51.8 Lymphocytes % (20.5 - 51.1 %) 35.0 Monocytes % (1.7 - 9.3 %) 7.1 Eosinophils % (0 - 5 %) 5.3 H Basophils % (0.0 - 2.0 %) 0.8 Absolute Granulocytes (1.4 - 6.5 /CUMM) 3.5 Absolute Lymphocytes (1.2 - 3.4 /CUMM) 2.4 Absolute Monocytes (0.10 - 0.60 /CUMM) 0.5 Absolute Eosinophils (0.0 - 0.7 /CUMM) 0.4 Absolute Basophils (0.0 - 0.2 /CUMM) 0.1 PUBS MCHC (33.0 - 37.0 G/DL) 32.9 L Last 24 Hours of Kyle Results: SPEC #: [id number] ARIEL: 06/12/17-1400 STATUS: COMP RECD: 06/12/17-[address]: YANNI BARRAGAN,SAVITA SOURCE: GENITAL ENTR: 06/12/17-[address]: DESIRE BARRAGAN,DAYRON SPDESC: BALDO SCHWAB MD,TOY HARE MD, [facility] ORDERED: GENITAL CULTURE Procedure Result > GENITAL CULTURE Final 06/15/17 Scant growth of METH RESIST STAPH AUREUS ISOLATED Called to/Readback by MARK by CALLUM 06/14/17 1150 1. METH RESIST STAPH AUREUS RX ABN ------ --- 1. 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 Labial abscess (cx + MRSA); clinically improving slowly; vancomycin trough therapeutic H/O MRSA colonization Tinea corporis; topical Nystatin powder x 14-21 d Suggestion: 1. Continue iv vancomycin (15 mg/kg q 12 h; goal trough 10-15) started 06/13/17 ( D#4/7); followed by oral Bactrim as OP in order to complete 14 d treatment. If patient w/o iv access start oral abx as noted. Patient at this time refuses PICC line. 2. Local wound care.
--- NOTE | 2017-06-16 16:27 | Discharge Summary ---
Visit Information Visit Dates Admission Date: 06/10/17 Discharge Date: 06/19/17 Hospital Course Course Attending Physician: GUANAKITO BARRAGAN,FANNY Primary Care Physician: ZAHEER BARRAGAN,TOY Mejia Consulting Request: Consulting Specialty: Infectious Disease Consulting Physician: Dr. STAPLES [facility] [facility] Course: This is a 41-year-old female with past medical history significant for bipolar, anxiety, UC now no longer on Asacol, who comes in for chief complaint of worsening labial cellulitis. Patient was seen on 06/08 for a labial abscess and is status post I&D with Dr. Montesinos in ED. She was prescribed Keflex, Bactrim, ibuprofen and Percocet upon D/C at that time. She returned in two days with worsening pain cellulitis and induration. ED workup shows: Vitals: 98.9, 78, 14, 93/55, 96 CBC: White count 10.3, hemoglobin 12.3, hematocrit 37.3, platelet 270. BEP: BUN 6, creatinine 0.8. No lactic acidosis, negative beta-hCG. LFT: AST 100, ALT 112, alkaline phosphatase 286. CT pelvis: Shows prominent lymph nodes and stranding in left lower quadrant abdominal wall and mons pubis and peroneal region. No evidence of soft tissue gas or bony abnormalities. 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 This is her second time with a labial abscess in the last [address] does not show evidence of gas in tissue;no crepitus on physical exam. Surgical consult placed in ED for evaluation. Nec fasc ruled out. * Pt was started on IV Vancomycin 1.5g Q12 pending cultures. Initially slow to respond to abx and induration persisted to pt remained on IV abx for 7 days. * Labial genital culture swab showed MRSA, which is sensitive to oral Clinda and Bactrim. Pt d/c on bactrim DS for 7 more days for total 14 days of abx. Rash: patient has developed rash under her both breasts. Seems fungal in etiology. * Continue Nystatin cream Arm Swelling Right arm swelling and pain due to IV infiltration * Ultrasound showed small noncompressible portion of basilic vein DVT likely secondary to IV infiltration * The patient is being discharged on 81 MG aspirin for 3 weeks * Instructed to return if symptoms worsen. Monitor out pt. Vaginal candidiasis-resolved * Completed miconazole suppository x7 day Upper lip swelling-Resolved ;suspected allergy likely due to food elements, detergent etc. Patient currently does not have any skin rash; other possibility includes a allergic reaction to medication such as antibiotics. Did not have a compromise of airway fnxn 2/2 swelling. Pt treated with topical cream. * Continue 1% hydrocortisone cream to the upper lip if swelling returns Skin itchiness--resolved Pt reported mild itchiness of her skin on arms yesterday which is believed to be from her sunburn, * she can be given 12.5 mg Benadryl every 6 hours when necessary. Transaminitis: Trending down She has history of cholecystectomy. Denies any right upper quadrant pain. * AST ALT trending down. Likely 2/2 to her infection Bipolar/anxiety: Continue home meds * Continue Lamictal 50 mg at bedtime * continue Depakote E5 100 MG at bedtime * continue Clonazepam 1 mg BID * continue Escitalopram 20 mg daily * Patient takes adderall XR which is not available at our pharmacy as per pharmacy recommendations we continued Ritalin 10 mg 3 times a day Allergies: Coded Allergies: doxycycline (Mild, abdominal pain, VOMITING 06/07/17) Disposition Summary Disposition Principal Diagnosis: labial abcess/ cellulitis Additional Diagnosis: Rash Discharge Disposition: home or self care Discharge Instructions General Discharge Information Code Status: Full Code Patient's Diet: regular Patient's Activity: as tolerated Follow-Up Instructions/Appts: please finish ur antibiotic course please follow up with ur pcp Medications at Discharge Discharge Medications: Stop taking the following medications: Sulfamethoxazole/Trimethoprim (Sulfamethoxazole-Tmp Ds Tablet) 800 MG-160 MG TABLET ORAL TWICE DAILY Qty = 20 Cephalexin (Keflex) 500 MG CAPSULE ORAL 4 TIMES A DAY Qty = 40 Continue taking these medications: Dextroamphetamine/Amphetamine (Adderall XR 20 MG Capsule) 20 MG CAP.ER.24H 1 Capsule ORAL Every Morning Qty = 14 Comments: NOT GIVEN IN HOSPITAL, RITALIN GIVEN 06/19/17 1347 Oxycodone HCl/Acetaminophen (Oxycodone-Acetaminophen 10-325) 10 MG-325 MG TABLET 1 Tablet ORAL Q6H as needed for PAIN Qty = 20 Comments: Last Taken:06/18/17 Time:1750 Divalproex Sodium (Divalproex Sodium ER) 250 MG TAB.ER.24H 1 Tablet ORAL Every night Qty = 14 Lamotrigine (Lamotrigine) 25 MG TABLET 1 Tablet ORAL Every night Qty = 14 Comments: Last Taken:06/18/17 Time:2128 Clonazepam (Clonazepam) 1 MG TABLET 1 Tablet ORAL as needed for ANXIETY Qty = 14 Comments: Last Taken:06/19/17 Time:1516 Escitalopram Oxalate (Escitalopram Oxalate) 20 MG TABLET 1 Tablet ORAL Qty = 30 Comments: Last Taken:06/19/17 Time:936 Ibuprofen (Ibuprofen) 800 MG TABLET 1 Tablet ORAL THREE TIMES DAILY Qty = 30 Start taking the following new medications: Sulfamethoxazole/Trimethoprim (Bactrim Ds Tablet) 800 MG-160 MG TABLET 1 Tablet ORAL TWICE DAILY Qty = 14 No Refills Comments: NOT GIVEN IN HOSPITAL Aspirin (Adult Low Dose Aspirin EC) 81 MG TABLET.DR 1 Tablet ORAL DAILY Qty = 21 No Refills Comments: NOT GIVEN IN HOSPITAL Nystatin (Nystatin) 100,000 UNIT/GRAM CREAM..G. 1 Application On the skin TWICE DAILY Qty = 2 No Refills Comments: NOT GIVEN IN HOSPITAL Copies To: ZAHEER BARRAGAN,TOY Mejia
[2017-06-16 23:06] VITALS: BP 120/70
[2017-06-17 07:03] VITALS: BP 104/66
--- NOTE | 2017-06-17 07:53 | PN- Housestaff ---
Subjective Follow-up For: LABIAL CELLULITIS Subjective: I have seen and examined the patient. The patient was sleeping comfortably. The patient says that she is very tired because she couldn't sleep Last night. Otherwise she feels well there's no complain of fever shortness of breath chest pain or palpitations. There were no overnight acute events. Review of Systems Constitutional: Denies: chills, diaphoresis, fever. Cardiovascular: Denies: chest pain, edema. Respiratory: Denies: hemoptysis, orthopnea. Gastrointestinal: Denies: bloating, constipation, diarrhea. Skin: Reports: rash. Objective Last 24 Hrs of Vital Signs/I&O Vital Signs Date Time Temp Pulse Resp B/P B/P Pulse O2 O2 Flow FiO2 Mean Ox Delivery Rate 06/17 1454 98.9 98 20 130/83 97 Room Air 06/17 0703 98.1 76 20 104/66 95 06/16 2306 98.4 85 18 120/70 98 Intake & Output 06/17 1600 06/17 0800 06/17 0000 Intake Total 900 510 Output Total Balance 900 510 Intake, IV 300 270 Intake, Oral 600 240 Physical Exam General Appearance: Alert, Oriented X3, Cooperative, No Acute Distress Skin: RASH UNDER BREAST HEENT: Atraumatic, Upper lip normal ; tongue is not swollen lower lip is normal. Neck: Supple Cardiovascular: Normal S1, Normal S2, No Murmurs Lungs: Clear to Auscultation, Normal Air Movement Abdomen: Normal Bowel Sounds, Soft, No Tenderness Neurological: Normal Speech Extremities: No Tenderness/Swelling Pelvic (FEMALE) No Discharge, induration at the labial site. Current Medications: Current Medications Sig/Chata Start time Last Medication Dose Route Stop Time Status Admin Clonazepam 1 MG BID 06/13 1105 AC 06/16 PO 06/20 1105 Diphenhydramine HCl 25 MG Q6P PRN 06/12 1800 AC PO Divalproex Sodium 500 MG AT BEDTIME 06/13 2200 AC 06/16 PO 215 Docusate Sodium 100 MG BID 06/10 1000 AC 06/17 PO 0846 Enoxaparin Sodium 40 MG DAILY 06/10 1000 AC 06/17 SC 0846 Escitalopram Oxalate 20 MG DAILY 06/10 1000 AC 06/17 PO 0846 Hydrocortisone 1 MARY BID 06/11 1104 AC 06/17 EXT 0847 Ibuprofen 600 MG Q6P PRN 06/17 1030 AC PO Ibuprofen 600 MG .STK-MED ONE 06/16 2142 DC PO 06/16 2143 Ibuprofen 600 MG Q6P PRN 06/10 0445 DC 06/12 PO 1725 Lactobacillus 1 CAP BID 06/11 2200 AC 06/17 Acidophilus PO 0846 Lamotrigine 50 MG AT BEDTIME 06/13 2200 AC 06/16 PO 2152 Methylphenidate HCl 10 MG TIDAC 06/13 1200 AC 06/17 PO 1335 Miconazole Nitrate 1 SUP AT BEDTIME 06/12 2200 DC 06/16 VAG 2157 Morphine Sulfate 2 MG Q4P PRN 06/17 1000 AC IV Morphine Sulfate 2 MG Q4P PRN 06/10 0445 DC 06/16 IV 1919 Nystatin 1 MARY BID 06/17 1239 AC 06/17 TOP 1335 Nystatin 1 MARY BID 06/15 1146 DC 06/17 TOP 0847 Ondansetron HCl 4 MG Q6P PRN 06/10 0445 AC IV Oxycodone HCl 5 MG Q6H PRN 06/17 1000 AC 06/17 PO 1527 Oxycodone HCl 5 MG Q6H PRN 06/10 0445 DC 06/16 PO 2155 Polyethylene Glycol 17 GM DAILY 06/14 1159 AC 06/16 PO 0942 Senna 187 MG DAILY 06/10 1000 AC 06/17 PO 0846 Vancomycin HCl 2,000 MG Q12H 06/17 0300 CAN Sodium Chloride 500 ML IV Vancomycin HCl 1,500 MG Q12 06/16 2200 CAN IV Vancomycin HCl 1,500 MG Q12H 06/16 2200 AC 06/17 Sodium Chloride 250 ML IV 1100 Assessment/Plan Assessment: This is a 41-year-old female with past medical history significant for bipolar, anxiety, UC now no longer on Asacol, who comes in for chief complaint of worsening labial cellulitis. During admission patient was afebrile, not tachycardic, and without white count. Patient will be admitted to the general medicine floor for further workup and management of pelvic cellulitis. ED workup shows: Vitals: 98.9, 78, 14, 93/55, 96CBC: White count 10.3, hemoglobin 12.3, hematocrit 37.3, platelet 270. BEP: BUN 6, creatinine 0.8. No lactic acidosis, negative beta-hCG. LFT: AST 100, ALT 112, alkaline phosphatase 286. CT pelvis: Shows prominent lymph nodes and stranding in left lower quadrant abdominal wall and mons pubis and peroneal region. No evidence of soft tissue gas or bony abnormalities. PLAN Pelvic cellulitis: Patient has history of MRSA from previous abscesses. This is her second time with a labial abscess in the last [address] does not show evidence of gas in tissue. No crepitus on physical exam. Surgical consult placed in ED for evaluation. Additionally, in ED patient got cefazolin, and Bactrim DS. * labial genital culture swab showed MRSA, which is sensitive to oral Clinda and Bactrim * Continue Vancomycin 1.5 g every 12 day 5 * VAnc trough was therapeutic 13.8 with the goal being 10-15. * As per surgery will manage conservatively with antibiotics * ESR 18N CRP 13H TSH 4.07N and Hb A1c 5.5N * Javi Beavers MD talked to Carole Vargas MD on the phone during rounds yesterday. The current plan is patient is going to continue on IV vancomycin over the weekend We are not going to switch to oral Bactrim discharged on Monday. Patient has refused the PICC line. Vaginal candidiasis Patient is complaining of vaginal itchiness he has started her on miconazole suppository x7 day as per ID Day5 today Rash Patient has developed rash UNDER her both breasts.Nystatin powder changed to nystatin cream as patient that powder is not helping * Nystatin cream Upper lip swelling-Resolved ;suspected allergy likely due to food elements, detergent etc. Patient currently does not have any skin rash; other possibility includes a allergic reaction to medication such as antibiotics * Continue 1% hydrocortisone cream to the upper lip; * if lip swelling worsens patient should be given 40 mg of prednisone daily for 3 days. * If there is acute compromise with tongue swelling or respiratory distress patient may need IV Solu-Medrol, H2 blockers Skin itchiness--resolved Pt reported mild itchiness of her skin on arms yesterday which is believed to be from her sunburn, she can be given 12.5 mg Benadryl every 6 hours when necessary. Today she is symptom free. Transaminitis: Patient AST ALT were trending down She has history of cholecystectomy. Denies any right upper quadrant pain. At this time etiology is currently unclear. She does endorse history of alcohol but she states that it is recreational and that she engages infrequently. Patient has negative hepatitis panel in 2016 . AST 59 ALT 80 ALKALINE phosphatase 125 today. Bipolar/anxiety: Medication have been confirmed from pharmacy * Continue Lamictal 50 mg at bedtime * continue Depakote E5 100 MG at bedtime * continue Clonazepam 1 mg BID * continue Escitalopram 20 mg daily * Patient takes adderall XR which is not available at our pharmacy as per pharmacy recommendations we will continue Ritalin 10 mg 3 times a day Full code regular diet chemical DVT prophylaxis Problem List: 1. Abscess of left genital labia Pain Ratin Pain Location: left labia Pain Goal: Pain 4 or less Pain Plan: ibubrofen 600 q6 oxycodone 5 q6 morphine 2mg q4 Tomorrow's Labs & Rationales: no need
--- NOTE | 2017-06-17 11:25 | PN- Att Addend ---
Attending Addendum Attending Brief Note Patient seen and examined. Plan of care discussed with the medical team and the patient. Available lab work and radiology test reports were reviewed. Patient appears comfortable she is lying in bed without any distress. She reports her pain is well controlled. She denies any recent fever chills nausea vomiting or abdominal pain. Denies any difficulty breathing. Patient does not report any drainage from abscess at this point. She complains of induration at the labial site. Assessment * Labial cellulitis/abscess status post I&D- patient seen by surgery. No further surgical intervention is needed at this time. Cultures grew MRSA * History of bipolar disorder and anxiety * Elevated liver enzyme likely fatty liver * Upper lip swelling- now improved. Suspected allergy likely due to food elements; patient currently does not have any skin rash; doubt allergic reaction to medication such as antibiotics Plan * Discuss with Carole Vargas MD over the phone yesterday. There is persistent concern for large area of induration. Therefore plan is to continue IV vancomycin over this weekend with possible switch to oral antibiotics on Monday. * Daily dressing * No need for daily lab unless clinical status changes Exam: General: Patient awake alert oriented without any distress CVS: S1 plus S2 without any murmur or gallops Chest: Few scattered crepitation without any wheeze. There is no respiratory distress. Abdomen: Soft nontender, bowel sound present, no guarding or rebound [employer]: Awake alert oriented without any focal neuro deficit and follows command appropriately Extremities: No edema; no clubbing or cyanosis noted ENT: Upper lip normal ; tongue is not swollen lower lip is normal. Vital Signs Date Time Temp Pulse Resp B/P B/P Pulse O2 O2 Flow FiO2 Mean Ox Delivery Rate 06/17 0703 98.1 76 20 104/66 95 06/16 2306 98.4 85 18 120/70 98 06/16 1519 98.0 86 18 122/64 97 Room Air Intake & Output 06/17 1600 06/17 0800 06/17 0000 Intake Total 510 Output Total Balance 510 Intake, IV 270 Intake, Oral 240
--- NOTE | 2017-06-17 14:35 | PN- Infect Dx ---
Subjective Subjective: Persistent rash under the breasts and groin area. Decreased pain L labia. No fever. Review of Systems Comments: 12 points reviewed as noted, otherwise negative. Objective Last 24 Hrs of Vital Signs/I&O Vital Signs Date Time Temp Pulse Resp B/P B/P Pulse O2 O2 Flow FiO2 Mean Ox Delivery Rate 06/17 0703 98.1 76 20 104/66 95 06/16 2306 98.4 85 18 120/70 98 06/16 1519 98.0 86 18 122/64 97 Room Air Intake & Output 06/17 1600 06/17 0800 06/17 0000 Intake Total 510 Output Total Balance 510 Intake, IV 270 Intake, Oral 240 Physical Exam Other Physical Findings: General Appearance Elevated BMI, Cooperative, No Acute Distress Skin patient's left labia small incisiion sites with scant drainage. L labia and mons pubis with resolved erythema/ much improved induration around the incision site; no fluctuence. HEENT Atraumatic, PERRLA, EOMI, Mucous Membr. moist/pink Neck Supple, No LAD Cardiovascular Regular Rate, Normal S1, Normal S2, No Murmur Lungs BS present no rales Abdomen Soft, No Tenderness Extremities No pedal Edema Neuro: Alert, Oriented X3, CN 2-12 wnl Results Last 24 Hours of Lab Results: Reviewed. Last 24 Hours of Kyle Results: Reviewed. Recent Imaging Studies: Reviewed. 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 Labial abscess (cx + MRSA); clinically improving slowly; vancomycin trough therapeutic H/O MRSA colonization Tinea corporis; topical Nystatin powder x 14-21 d Suggestion: 1. Continue iv vancomycin (15 mg/kg q 12 h; goal trough 10-15) started 06/13/17 ( D#5/7); followed by oral Bactrim as OP in order to complete 14 d treatment. If patient w/o iv access start oral abx as noted. Patient at this time refuses PICC line. 2. Local wound care.
[2017-06-17 14:54] VITALS: BP 130/83
--- NOTE | 2017-06-17 18:35 | RADIOLOGY REPORT ---
EXAMINATION: XR PORTABLE ABDOMEN CLINICAL INFORMATION: Rule out intra-abdominal process. Abdominal pain. COMPARISON: CT pelvis 06/09/2017 and earlier. TECHNIQUE: AP portable supine view of the abdomen. FINDINGS: Gas is seen within nondilated colon from the right colon to the rectum. No air-fluid levels are seen although only a supine film was obtained. No abnormal abdominal calcifications. Right upper quadrant cholecystectomy clips. IMPRESSION: Gas within nondilated colon. Prior cholecystectomy. Supine radiographs of the abdomen have limited sensitivity for identifying intra-abdominal abnormalities. Consider CT scan of the abdomen and pelvis with IV and oral contrast as clinically indicated.
--- NOTE | 2017-06-17 21:31 | Event Note ---
Event Note Event Note: I was paged by the nurse around 3 PM that was complaining of abdominal pain. is 41-year-old female who is being treated on IV vancomycin for labial abscess/cellulitis. I went in and examined the patient. The patient appeared to be in mild distress. She complained of moderate diffuse upper and lower abdominal pain. The pain was nonradiating. The pain was mostly concentrated at places where she had been given Lovenox injections. She told me that she she is passing gas, has no trouble urinating and has had 2 bowel movements since morning. She has been walking around and ambulating well. Today she took a shower . Dr. Emmanuel came and examined her pelvic area today. She pressed her labial abscess site to check for any drainage. She complains that her pain has worsened after that , she rates her labial pain around 8 out of 10 and her abdominal pain around 6 out of 10. She is very concerned about the pain right now/ Her vitals are HR 98 blood pressure 130/83 temperature 98.9 sating 97% on room air. I have ordered abdominal x-ray to rule out any acute pathology.
[2017-06-17 23:02] VITALS: BP 112/68
[2017-06-18 07:13] VITALS: BP 120/67
--- NOTE | 2017-06-18 08:53 | PN- Att Addend ---
Attending Addendum Attending Brief Note Patient seen and examined. Plan of care discussed with the medical team and the patient. Available lab work and radiology test reports were reviewed. Patient appears comfortable she is lying in bed without any distress. She denies any recent fever chills nausea vomiting or abdominal pain. Denies any difficulty breathing. Patient does not report any drainage from abscess at this point. She complains of induration at the labial site. Her IV was infiltrated last night. She complains of right arm pain and swelling and redness. Assessment * Labial cellulitis/abscess status post I&D- patient seen by surgery. No further surgical intervention is needed at this time. Cultures grew MRSA * History of bipolar disorder and anxiety * Elevated liver enzyme likely fatty liver * Upper lip swelling- now improved. Suspected allergy likely due to food elements; patient currently does not have any skin rash; doubt allergic reaction to medication such as antibiotics * Right arm swelling and pain due to IV infiltration- currently no suspicious for DVT however pain/swelling continues we may need ultrasound of right upper extremity tomorrow to rule out DVT Plan * continue IV vancomycin. We'll plan to switch to oral antibiotic after morning dose of vancomycin tomorrow. * Heat pad to right arm * Elevated right arm * The swelling and pain not improved we will get ultrasound of right upper arm to rule out DVT Daily dressing * No need for daily lab unless clinical status changes Exam: General: Patient awake alert oriented without any distress CVS: S1 plus S2 without any murmur or gallops Chest: Few scattered crepitation without any wheeze. There is no respiratory distress. Abdomen: Soft nontender, bowel sound present, no guarding or rebound [employer]: Awake alert oriented without any focal neuro deficit and follows command appropriately Extremities: No edema; no clubbing or cyanosis noted ENT: Upper lip normal ; tongue is not swollen lower lip is normal. Vital Signs Date Time Temp Pulse Resp B/P B/P Pulse O2 O2 Flow FiO2 Mean Ox Delivery Rate 06/18 0713 98.2 64 18 120/67 95 06/17 2302 97.7 72 20 112/68 97 Room Air 06/17 1454 98.9 98 20 130/83 97 Room Air Intake & Output 06/18 1600 06/18 0800 06/18 0000 Intake Total 700 Output Total 350 Balance 350 Intake, IV 250 Intake, Oral 450 Output, Urine 350
[2017-06-18] MEDS ORDERED: BACTRIM DS TAB1 EACH PO (10:44)
--- NOTE | 2017-06-18 11:13 | PN- Housestaff ---
Subjective Follow-up For: Labial abscess/cellulitis Subjective: I have seen and examined the patient. The patient was sitting comfortably in the bed. She does not have any current complaints. Her abdominal pain has improved The patient showed me her right arm which was swollen as compared with the left one. Her IV was infiltrated last night. She complains of right arm pain and swelling and redness.There are no complaints of fever shortness of breath chest pain or palpitations. There were no overnight acute events. Review of Systems Constitutional: Denies: chills, diaphoresis, fever. Cardiovascular: Denies: chest pain, edema. Respiratory: Denies: cough, short of breath. Gastrointestinal: Denies: constipation, melena. Genitourinary: Reports: no symptoms. Objective Last 24 Hrs of Vital Signs/I&O Vital Signs Date Time Temp Pulse Resp B/P B/P Pulse O2 O2 Flow FiO2 Mean Ox Delivery Rate 06/18 0713 98.2 64 18 120/67 95 06/17 2302 97.7 72 20 112/68 97 Room Air 06/17 1454 98.9 98 20 130/83 97 Room Air Intake & Output 06/18 1600 06/18 0800 06/18 0000 Intake Total 350 700 Output Total 350 350 Balance 0 350 Intake, IV 100 250 Intake, Oral 250 450 Output, Urine 350 350 Physical Exam General Appearance: Alert, Oriented X3, Cooperative, No Acute Distress Skin: No Rashes (rash under breast) HEENT: Upper lip normal ; tongue is not swollen lower lip is normal. Cardiovascular: Normal S1, Normal S2, No Murmurs Lungs: Clear to Auscultation, Normal Air Movement Abdomen: Normal Bowel Sounds, Soft Neurological: Normal Speech Extremities: right arm swollen, erythematous Pelvic (FEMALE) No Discharge, induration at the labial site. Current Medications: Current Medications Sig/Chata Start time Last Medication Dose Route Stop Time Status Admin Clonazepam 1 MG BID 06/13 1105 AC 06/17 PO 06/20 110 2129 Diphenhydramine HCl 25 MG Q6P PRN 06/12 1800 AC PO Divalproex Sodium 500 MG AT BEDTIME 06/13 2200 AC 06/17 PO 2128 Docusate Sodium 100 MG BID 06/10 1000 AC 06/17 PO 2128 Enoxaparin Sodium 40 MG DAILY 06/10 1000 AC 07/23 SC 1103 Escitalopram Oxalate 20 MG DAILY 06/10 1000 AC 06/18 PO 1051 Hydrocortisone 1 MARY BID 06/11 1104 AC 06/18 EXT 1051 Ibuprofen 600 MG Q6P PRN 06/17 1030 AC PO Lactobacillus 1 CAP BID 06/11 2200 AC 06/18 Acidophilus PO 1051 Lamotrigine 50 MG AT BEDTIME 06/13 2200 AC 06/16 PO 2152 Methylphenidate HCl 10 MG TIDAC 06/13 1200 AC 06/18 PO 1332 Morphine Sulfate 2 MG Q4P PRN 06/17 1000 AC 06/18 IV 1059 Nystatin 1 MARY BID 06/17 1239 AC 06/18 TOP 1103 Ondansetron HCl 4 MG Q6P PRN 06/10 0445 AC IV Oxycodone HCl 5 MG Q6H PRN 06/17 1000 AC 06/18 PO 0829 Polyethylene Glycol 17 GM DAILY 06/14 1159 AC 06/16 PO 0942 Senna 187 MG DAILY 06/10 1000 AC 06/17 PO 0846 Vancomycin HCl 1,500 MG Q12H 06/16 220 AC 06/18 Sodium Chloride 250 ML IV 1051 Assessment/Plan Assessment: This is a 41-year-old female with past medical history significant for bipolar, anxiety, UC now no longer on Asacol, who comes in for chief complaint of worsening labial cellulitis. During admission patient was afebrile, not tachycardic, and without white count. Patient will be admitted to the general medicine floor for further workup and management of pelvic cellulitis. ED workup shows: Vitals: 98.9, 78, 14, 93/55, 96CBC: White count 10.3, hemoglobin 12.3, hematocrit 37.3, platelet 270. BEP: BUN 6, creatinine 0.8. No lactic acidosis, negative beta-hCG. LFT: AST 100, ALT 112, alkaline phosphatase 286. CT pelvis: Shows prominent lymph nodes and stranding in left lower quadrant abdominal wall and mons pubis and peroneal region. No evidence of soft tissue gas or bony abnormalities. PLAN Pelvic cellulitis: Patient has history of MRSA from previous abscesses. This is her second time with a labial abscess in the last [address] does not show evidence of gas in tissue. No crepitus on physical exam. Surgical consult placed in ED for evaluation. Additionally, in ED patient got cefazolin, and Bactrim DS. * labial genital culture swab showed MRSA, which is sensitive to oral Clinda and Bactrim * Continue Vancomycin 1.5 g every 12 day6. * VAnc trough was therapeutic 13.8 with the goal being 10-15. * As per surgery will manage conservatively with antibiotics * ESR 18N CRP 13H TSH 4.07N and Hb A1c 5.5N * Javi Beavers MD talked to Carole Vargas MD on the phone during rounds yesterday. The current plan is patient is going to continue on IV vancomycin over the weekend We are not going to switch to oral Bactrim discharged on Monday. Patient has refused the PICC line. Arm Swelling Right arm swelling and pain due to IV infiltration currently no suspicious for DVT however pain/swelling continues we may need ultrasound of right upper extremity tomorrow to rule out DVT Vaginal candidiasis Patient is complaining of vaginal itchiness he has started her on miconazole suppository x7 day as per ID Day6 today Rash Patient has developed rash UNDER her both breasts.Nystatin powder changed to nystatin cream as patient that powder is not helping * Nystatin cream Upper lip swelling-Resolved ;suspected allergy likely due to food elements, detergent etc. Patient currently does not have any skin rash; other possibility includes a allergic reaction to medication such as antibiotics * Continue 1% hydrocortisone cream to the upper lip; * if lip swelling worsens patient should be given 40 mg of prednisone daily for 3 days. * If there is acute compromise with tongue swelling or respiratory distress patient may need IV Solu-Medrol, H2 blockers Skin itchiness--resolved Pt reported mild itchiness of her skin on arms yesterday which is believed to be from her sunburn, she can be given 12.5 mg Benadryl every 6 hours when necessary. Today she is symptom free. Transaminitis: Trending down Patient AST ALT were trending down She has history of cholecystectomy. Denies any right upper quadrant pain. At this time etiology is currently unclear. She does endorse history of alcohol but she states that it is recreational and that she engages infrequently. Patient has negative hepatitis panel in 2016 . AST 59 ALT 80 ALKALINE phosphatase 125 today. Bipolar/anxiety: Medication have been confirmed from pharmacy * Continue Lamictal 50 mg at bedtime * continue Depakote E5 100 MG at bedtime * continue Clonazepam 1 mg BID * continue Escitalopram 20 mg daily * Patient takes adderall XR which is not available at our pharmacy as per pharmacy recommendations we will continue Ritalin 10 mg 3 times a day Full code regular diet chemical DVT prophylaxis Problem List: 1. Abscess Pain Ratin Pain Location: left labia Pain Goal: Pain 4 or less Pain Plan: ibubrofen 600 q6 oxycodone 5 q6 morphine 2mg q4 Tomorrow's Labs & Rationales: none
--- NOTE | 2017-06-18 13:02 | PN- Infect Dx ---
Subjective Subjective: No fever or chills. Less discomfort pelvic area. R forearm swelling/pain. Review of Systems Comments: 12 points reviewed as noted, otherwise negative. Objective Last 24 Hrs of Vital Signs/I&O Vital Signs Date Time Temp Pulse Resp B/P B/P Pulse O2 O2 Flow FiO2 Mean Ox Delivery Rate 06/18 0713 98.2 64 18 120/67 95 06/17 2302 97.7 72 20 112/68 97 Room Air 06/17 1454 98.9 98 20 130/83 97 Room Air Intake & Output 06/18 1600 06/18 0800 06/18 0000 Intake Total 350 700 Output Total 350 350 Balance 0 350 Intake, IV 100 250 Intake, Oral 250 450 Output, Urine 350 350 Physical Exam Other Physical Findings: General Appearance Elevated BMI, Cooperative, No Acute Distress Skin patient's left labia small incision sites with scant drainage. L labia and mons pubis with resolved erythema/ much improved induration around the incision site; no fluctuence. HEENT Atraumatic, PERRLA, EOMI, Mucous Membr. moist/pink Neck Supple, No LAD Cardiovascular Regular Rate, Normal S1, Normal S2, No Murmur Lungs BS present no rales Abdomen Soft, No Tenderness Extremities No pedal Edema, R arm welling/erythema Neuro: Alert, Oriented X3, CN 2-12 wnl Results Last 24 Hours of Lab Results: Reviewed. Last 24 Hours of Kyle Results: Reviewed. Recent Imaging Studies: Reviewed. 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 Labial abscess (cx + MRSA); clinically improving slowly; vancomycin trough therapeutic H/O MRSA colonization Tinea corporis; topical antifungal therapy for one week after the rash resolves Suggestion: 1. Continue iv vancomycin (15 mg/kg q 12 h; goal trough 10-15) started 06/13/17 ( D#6/7); followed by oral Bactrim DS 1 tab bid starting 06/19 in am for additional 7 d. If patient w/o iv access start oral abx as noted. 2. Local wound care. 3. Nystatin powder bid to affected areas x 14-21 d.
[2017-06-18 14:50] VITALS: BP 116/60
[2017-06-18 22:46] VITALS: BP 102/54
[2017-06-19 07:37] VITALS: BP 116/61
--- NOTE | 2017-06-19 08:28 | PN- Housestaff ---
See Addendum Subjective Follow-up For: Labial abscess/cellulitis Subjective: I have seen and examined the patient. The patient was sleeping comfortably in the bed. Her labial swelling is much better. The pain is under control with her current pain medication regimen. There were no overnight acute events. Her abdominal pain is also improved. The arm swelling is much better as well. There are no complaint of fever shortness of breath chest pain or palpitations. The patient will be discharged today on oral antibiotics. Review of Systems Constitutional: Denies: chills, diaphoresis, fever. Cardiovascular: Denies: chest pain, edema, orthopena. Respiratory: Denies: cough, hemoptysis, orthopnea. Gastrointestinal: Reports: no symptoms. Genitourinary: Reports: no symptoms. Objective Last 24 Hrs of Vital Signs/I&O Vital Signs Date Time Temp Pulse Resp B/P B/P Pulse O2 O2 Flow FiO2 Mean Ox Delivery Rate 06/19 0737 97.8 65 20 116/61 95 06/18 2246 98.7 74 20 102/54 95 06/18 1450 98.0 80 18 116/60 99 Room Air Intake & Output 06/19 1600 06/19 0800 06/19 0000 Intake Total 240 480 Output Total Balance 240 480 Intake, Oral 240 480 Physical Exam General Appearance: Alert, Oriented X3, Cooperative, No Acute Distress HEENT: Atraumatic Neck: Supple Cardiovascular: Normal S1, Normal S2, No Murmurs Lungs: Clear to Auscultation, Normal Air Movement Abdomen: Normal Bowel Sounds, Soft, No Tenderness Neurological: Normal Gait, Normal Speech Extremities: No Tenderness/Swelling Breasts: rash under breast Pelvic (FEMALE) No Discharge, induration at the labial site. Current Medications: Current Medications Sig/Chata Start time Last Medication Dose Route Stop Time Status Admin Clonazepam 1 MG BID 06/13 1105 AC 06/18 PO 06/20 1104 2128 Diphenhydramine HCl 25 MG Q6P PRN 06/12 1800 AC PO Divalproex Sodium 500 MG AT BEDTIME 06/13 2200 AC 06/18 PO 2128 Docusate Sodium 100 MG BID 06/10 1000 AC 06/17 PO 2129 Enoxaparin Sodium 40 MG DAILY 06/10 1000 AC 06/18 SC 1103 Escitalopram Oxalate 20 MG DAILY 06/10 1000 AC 06/18 PO 1051 Hydrocortisone 1 MARY BID 06/11 1104 AC 06/18 EXT 2129 Ibuprofen 600 MG Q6P PRN 06/17 1030 AC PO Lactobacillus 1 CAP BID 06/11 220 AC 06/18 Acidophilus PO 2127 Lamotrigine 50 MG AT BEDTIME 06/13 2200 AC 06/18 PO 212 Methylphenidate HCl 10 MG TIDAC 06/13 1200 AC 06/18 PO 1750 Morphine Sulfate 2 MG Q4P PRN 06/17 1000 AC 06/19 IV 0045 Nystatin 1 MARY BID 06/17 1239 AC 06/18 TOP 2128 Ondansetron HCl 4 MG Q6P PRN 06/10 0445 AC IV Oxycodone HCl 5 MG Q6H PRN 06/17 1000 AC 06/18 PO 1750 Polyethylene Glycol 17 GM DAILY 06/14 1159 AC 06/16 PO 0942 Senna 187 MG DAILY 06/10 1000 AC 06/17 PO 0846 Vancomycin HCl 1,500 MG Q12H 06/16 2200 AC 06/18 Sodium Chloride 250 ML IV 2127 Assessment/Plan Assessment: This is a 41-year-old female with past medical history significant for bipolar, anxiety, UC now no longer on Asacol, who comes in for chief complaint of worsening labial cellulitis. During admission patient was afebrile, not tachycardic, and without white count. Patient will be admitted to the general medicine floor for further workup and management of pelvic cellulitis. ED workup shows: Vitals: 98.9, 78, 14, 93/55, 96CBC: White count 10.3, hemoglobin 12.3, hematocrit 37.3, platelet 270. BEP: BUN 6, creatinine 0.8. No lactic acidosis, negative beta-hCG. LFT: AST 100, ALT 112, alkaline phosphatase 286. CT pelvis: Shows prominent lymph nodes and stranding in left lower quadrant abdominal wall and mons pubis and peroneal region. No evidence of soft tissue gas or bony abnormalities. PLAN Pelvic cellulitis: Patient has history of MRSA from previous abscesses. This is her second time with a labial abscess in the last [address] does not show evidence of gas in tissue. No crepitus on physical exam. Surgical consult placed in ED for evaluation. Additionally, in ED patient got cefazolin, and Bactrim DS. * labial genital culture swab showed MRSA, which is sensitive to oral Clinda and Bactrim * last day of IV Vancomycin 1.5 g every 12 * VAnc trough was therapeutic 13.8 with the goal being 10-15. * As per surgery will manage conservatively with antibiotics * ESR 18N CRP 13H TSH 4.07N and Hb A1c 5.5N * Pt being discharged on oral bactrium for 8 days Rash Patient has developed rash UNDER her both breasts.Nystatin powder changed to nystatin cream as patient that powder is not helping * Nystatin cream Arm Swelling-resolved Right arm swelling and pain due to IV infiltration currently no suspicious for DVT however pain/swelling continues we may need ultrasound of right upper extremity tomorrow to rule out DVT Vaginal candidiasis-resolved Patient is complaining of vaginal itchiness he has started her on miconazole suppository x7 day as per ID Day7 today Upper lip swelling-Resolved ;suspected allergy likely due to food elements, detergent etc. Patient currently does not have any skin rash; other possibility includes a allergic reaction to medication such as antibiotics * Continue 1% hydrocortisone cream to the upper lip; * if lip swelling worsens patient should be given 40 mg of prednisone daily for 3 days. * If there is acute compromise with tongue swelling or respiratory distress patient may need IV Solu-Medrol, H2 blockers Skin itchiness--resolved Pt reported mild itchiness of her skin on arms yesterday which is believed to be from her sunburn, she can be given 12.5 mg Benadryl every 6 hours when necessary. Today she is symptom free. Transaminitis: Trending down Patient AST ALT were trending down She has history of cholecystectomy. Denies any right upper quadrant pain. At this time etiology is currently unclear. She does endorse history of alcohol but she states that it is recreational and that she engages infrequently. Patient has negative hepatitis panel in 2016 . AST 59 ALT 80 ALKALINE phosphatase 125 today. Bipolar/anxiety: Medication have been confirmed from pharmacy * Continue Lamictal 50 mg at bedtime * continue Depakote E5 100 MG at bedtime * continue Clonazepam 1 mg BID * continue Escitalopram 20 mg daily * Patient takes adderall XR which is not available at our pharmacy as per pharmacy recommendations we will continue Ritalin 10 mg 3 times a day Full code regular diet chemical DVT prophylaxis Problem List: 1. Abscess of pelvis 2. Abscess of left genital labia Pain Ratin Pain Location: left labia Pain Goal: Pain 4 or less Pain Plan: ibubrofen 600 q6 oxycodone 5 q6 morphine 2mg q4 Tomorrow's Labs & Rationales: none
--- NOTE | 2017-06-19 08:54 | Discharge Summary ---
Hospital Course Allergies: Coded Allergies: doxycycline (Mild, abdominal pain, VOMITING 06/07/17) Discharge Instructions Medications at Discharge Discharge Medications: Stop taking the following medications: Sulfamethoxazole/Trimethoprim (Sulfamethoxazole-Tmp Ds Tablet) 800 MG-160 MG TABLET ORAL TWICE DAILY Qty = 20 Cephalexin (Keflex) 500 MG CAPSULE ORAL 4 TIMES A DAY Qty = 40 Continue taking these medications: Dextroamphetamine/Amphetamine (Adderall XR 20 MG Capsule) 20 MG CAP.ER.24H 1 Capsule ORAL Every Morning Qty = 14 Oxycodone HCl/Acetaminophen (Oxycodone-Acetaminophen 10-325) 10 MG-325 MG TABLET 1 Tablet ORAL Q6H as needed for PAIN Qty = 20 Divalproex Sodium (Divalproex Sodium ER) 250 MG TAB.ER.24H 1 Tablet ORAL Every night Qty = 14 Lamotrigine (Lamotrigine) 25 MG TABLET 1 Tablet ORAL Every night Qty = 14 Clonazepam (Clonazepam) 1 MG TABLET 1 Tablet ORAL as needed for ANXIETY Qty = 14 Escitalopram Oxalate (Escitalopram Oxalate) 20 MG TABLET 1 Tablet ORAL QAM Qty = 30 Ibuprofen (Ibuprofen) 800 MG TABLET 1 Tablet ORAL THREE TIMES DAILY Qty = 30 Start taking the following new medications: Sulfamethoxazole/Trimethoprim (Bactrim Ds Tablet) 800 MG-160 MG TABLET 1 Tablet ORAL TWICE DAILY Qty = 16 No Refills
[2017-06-19] MEDS ORDERED: BACTRIM DS TAB1 EACH PO ×2 (09:44→15:40)
--- NOTE | 2017-06-19 13:10 | PN- Att Addend ---
See Addendum Attending Addendum Attending Brief Note Patient seen and examined. Plan of care discussed with the medical team and the patient. Available lab work and radiology test reports were reviewed. Patient appears comfortable she is lying in bed without any distress. She denies any recent fever chills nausea vomiting or abdominal pain. Denies any difficulty breathing. Patient does not report any drainage from abscess at this point. She complains of induration at the labial site. Her IV was infiltrated day before. She complains of right arm pain and swelling and redness which has reduced. Assessment * Labial cellulitis/abscess status post I&D- patient seen by surgery. No further surgical intervention is needed at this time. Cultures grew MRSA * History of bipolar disorder and anxiety * Elevated liver enzyme likely fatty liver * Upper lip swelling- now improved. * Right arm swelling and pain due to IV infiltration- currently no suspicious for DVT however pain/swelling continues we may need ultrasound of right upper extremity tomorrow to rule out DVT Plan * switch to oral antibiotic Bactrim DS * check US right arm to rule out DVT. * Heat pad to right arm * Elevate right arm * DC home today Exam: General: Patient awake alert oriented without any distress CVS: S1 plus S2 without any murmur or gallops Chest: Few scattered crepitation without any wheeze. There is no respiratory distress. Abdomen: Soft nontender, bowel sound present, no guarding or rebound [employer]: Awake alert oriented without any focal neuro deficit and follows command appropriately Extremities: No edema; no clubbing or cyanosis noted; righ arm upper part if swollen, red, tender. No cord felt ENT: Upper lip normal ; tongue is not swollen lower lip is normal. Vital Signs Date Time Temp Pulse Resp B/P B/P Pulse O2 O2 Flow FiO2 Mean Ox Delivery Rate 06/19 0737 97.8 65 20 116/61 95 06/18 2246 98.7 74 20 102/54 95 06/18 1450 98.0 80 18 116/60 99 Room Air
--- NOTE | 2017-06-19 14:35 | ULTRASOUND REPORT ---
EXAMINATION: DOPPLER VENOUS ULTRASOUND UPPER EXTREMITY, RIGHT CLINICAL INFORMATION: Right upper extremity edema and swelling. COMPARISON: None. TECHNIQUE: Grayscale, Doppler and spectral analysis of the upper extremity and neck was performed. FINDINGS: There is a small noncompressible portion of the basilic vein. The remainder of the right neck and upper extremity vessels are unremarkable with normal waveforms and compressibility demonstrated. IMPRESSION: Small noncompressible portion of the basilic vein farm loan representative of a deep venous thrombosis.
[2017-06-19 14:59] VITALS: BP 104/58
[2017-06-19] MEDS ORDERED: ADULT LOW DOSE81 MG PO ×2 (15:29→15:40)
[2017-06-19] MEDS ORDERED: NYSTATIN15 G1 TOP ×2 (15:36→15:40)
== END 2017-06-19 19:00 | DRG 531 ==
LOC: ERH 19:55 → ERHI 06-10 00:36 → 2NB 06-10 00:36 → ENRESERV 06-10 01:22 → 2NB 06-10 02:02
PROVIDERS: Internal Medicine; Physician Assistant; Student in an Organized Health Care Education/Training Program; ADMIT Student in an Organized Health Care Education/Training Program
DX: N76.2 Acute vulvitis (principal); I82.621 Acute embolism and thrombosis of deep veins of right upper extremity; T80.89XA Other complications following infusion, transfusion and therapeutic injection, initial encounter; F31.9 Bipolar disorder, unspecified; F41.9 Anxiety disorder, unspecified; E78.5 Hyperlipidemia, unspecified; G47.33 Obstructive sleep apnea (adult) (pediatric); B37.3 Candidiasis of vulva and vagina; R74.0 Nonspecific elevation of levels of transaminase and lactic acid dehydrogenase [LDH]; R22.0 Localized swelling, mass and lump, head; B95.62 Methicillin resistant Staphylococcus aureus infection as the cause of diseases classified elsewhere; Z87.891 Personal history of nicotine dependence
CPT/HCPCS: 2NBP; 87070; 87184; 36415; 74000; 80305; 80307; 81003; 82436; 87040; 87147; 96374; 96375; J0690; J1200; J1650; J1885; J2405; J3370; J7040